=== PATIENT | female | born 1970 | race Caucasian/White ===

== ENCOUNTER → 2018-12-02 08:01 | Outpatient (CLI) | payer OTHER, SELFPAY ==
--- NOTE | 2018-12-02 08:03 | BI_ITS ---
MAMMOGRAPHY - BILATERAL SCREENING REASON FOR EXAM: Female, 48 years old. Routine annual screening examination. PERTINENT HISTORY: Grandmother with breast cancer. TECHNIQUE: Digital bilateral breast edenilson (3D mammographic acquisition) in the CC and MLO projections. 2-D mediolateral oblique (MLO) and craniocaudad (CC) views of both breasts were obtained. CAD: Full Field Digital Mammography with Computer Added Detection was performed. COMPARISON: Comparison is made with prior study dated October 28, 2017 and July 28, 2012. FINDINGS: Breast Composition: The breasts are extremely dense, which lowers the sensitivity of mammography. There are no dominant masses or suspicious calcifications. Stable bilateral axillary lymph nodes. No other significant abnormalities are identified. There has been no significant change since the prior study. BI/SCREENING MAMM (CAD), BILAT IMPRESSION: Stable bilateral screening mammogram. Yearly follow-up mammogram recommended. (A) ASSESSMENT CATEGORY: BIRADS Category 2: Benign. A letter regarding these results will be sent to the patient by the facility within 30 days. Approximately 10% of breast cancers are not detected by mammography. A normal mammogram should not delay biopsy of a clinically suspicious abnormality. [id number] Electronically Signed: Nuno Dominguze MD at 9:05 EST Tel [phone], Service support ,
== END ==
PROVIDERS: Family Provider Internal Medicine; PCP Internal Medicine; Referring Provider Obstetrics & Gynecology; Visit Provider Obstetrics & Gynecology
DX: Z12.31 Encounter for screening mammogram for malignant neoplasm of breast (principal); Z80.3 Family history of malignant neoplasm of breast
CPT/HCPCS: 77063; 77067

== ENCOUNTER 2019-03-02 06:11 | Day surgery (SDC) | payer OTHER, SELFPAY ==
[2019-03-02 06:40] LABS: Internal QC Validated? YES +Cl - CLEAR BKGD; Pregnancy, Urine Negative Negative
[2019-03-02 06:47] VITALS: BP 106/57; PULSE 74; RESP 16; TEMP 37.8; O2SAT 99; BMI 24.8
--- NOTE | 2019-03-02 07:11 | PCM.PN.BLA ---
Progress Note ADDENDUM: Pt refusing to sign consent. Concerned re bilateral salpingectomy. Advised again, as discussed in the office at the time of her last visit: the fallopian tubes only purpose is to establish . She is not planning . Benefit of removing fallopian tubes: may decrease risk of ovarian cancer. After discussion of options, she elects to proceed with bilateral salpingectomy. The R ovary is the one with the enlarging cystic structure. R oophorectomy also planned. Rereviewed potential for larger incision prn if unable to remove the R ovary with L/S incisions. Explained procedure. Consents signed and witnessed. Proceed with laparoscopic bilateral salpingectomy with R oophorectomy.
--- NOTE | 2019-03-02 07:15 | PCM.DC ---
- Discharge Diagnoses Current Active Problems: right ovarian cyst Status post laparoscopy, bilateral salpingectomy and Right oophorectomy You will use the following diet at home:: No restrictions Discharge Activity: May not drive while taking narcotic pain medications., May Shower, May Take a Tub Bath Return to work on:: 03/05/19 May resume sexual activity in: 1 week Lifting Restrictions: limit to 20# or less for two weeks to allow healing Call your doctor if you observe: Fever of 101 or Higher, Using more than one pad per hour, Calf discomfort, Uncontrolled pain Change Dressing in (Days):: 7 Remove Dressing in (days):: 7 Cleanse incision/area with: Soap & Water, Keep Dressing Clean & Dry Additional Instructions: 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 Take Tylenol 500 - 1000 mg by mouth every 8 hr as needed. You may take EITHER two Aleve or three Ibuprofen by mouth every 8 hrs. Add OxyIR for more severe pain as needed. Allergies/Adverse Reactions: Allergies No Known Allergies Allergy (Verified 02/23/19 11:01) Medications to take at Discharge Apremilast [Otezla] 30 mg PO DAILY 02/23/19 Biotin 1 mg PO DAILY 02/23/19 Calcium Carbonate [Calcium] 600 mg PO DAILY 02/23/19 Dexlansoprazole [Dexilant] 30 mg PO DAILY 02/23/19 Lactobacillus Acidophilus [Acidophilus Probiotic] 0.5 mg PO DAILY 02/23/19 Magnesium 200 mg PO DAILY 02/23/19 Simvastatin [Zocor] 10 mg PO DAILY 02/23/19 Oxycodone [Oxyir] 5 mg PO Q6H PRN PRN 3 Days #10 tablet 03/02/19 The following prescriptions were given: Oxycodone [Oxyir] 5 mg PO Q6H PRN PRN 3 Days #10 tablet PRN Reason: Mod-Severe Pain (4-10/10) Primary Care Physician: Sisi Pappas MD [Primary Care Provider] - Test Results: Test results from this visit will be discussed in further detail at your follow-up appointment, if applicable. Please Follow Up With: Liz Velez MD - [phone] When: in 2 wk for postop check up as scheduled Proposed Discharge Date: 03/02/19
--- NOTE | 2019-03-02 07:20 | DCINST_ITS ---
- Discharge Diagnoses Current Active Problems: right ovarian cyst Status post laparoscopy, bilateral salpingectomy and Right oophorectomy You will use the following diet at home:: No restrictions Discharge Activity: May not drive while taking narcotic pain medications., May Shower, May Take a Tub Bath Return to work on:: 03/05/19 May resume sexual activity in: 1 week Lifting Restrictions: limit to 20# or less for two weeks to allow healing Call your doctor if you observe: Fever of 101 or Higher, Using more than one pad per hour, Calf discomfort, Uncontrolled pain Change Dressing in (Days):: 7 Remove Dressing in (days):: 7 Cleanse incision/area with: Soap & Water, Keep Dressing Clean & Dry Additional Instructions: 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 Take Tylenol 500 - 1000 mg by mouth every 8 hr as needed. You may take EITHER two Aleve or three Ibuprofen by mouth every 8 hrs. Add OxyIR for more severe pain as needed. Allergies/Adverse Reactions: Allergies No Known Allergies Allergy (Verified 02/23/19 11:01) Medications to take at Discharge Apremilast [Otezla] 30 mg PO DAILY 02/23/19 Biotin 1 mg PO DAILY 02/23/19 Calcium Carbonate [Calcium] 600 mg PO DAILY 02/23/19 Dexlansoprazole [Dexilant] 30 mg PO DAILY 02/23/19 Lactobacillus Acidophilus [Acidophilus Probiotic] 0.5 mg PO DAILY 02/23/19 Magnesium 200 mg PO DAILY 02/23/19 Simvastatin [Zocor] 10 mg PO DAILY 02/23/19 Oxycodone [Oxyir] 5 mg PO Q6H PRN PRN 3 Days #10 tablet 03/02/19 The following prescriptions were given: Oxycodone [Oxyir] 5 mg PO Q6H PRN PRN 3 Days #10 tablet PRN Reason: Mod-Severe Pain (4-10/10) Primary Care Physician: Sisi Pappas MD [Primary Care Provider] - Test Results: Test results from this visit will be discussed in further detail at your follow- up appointment, if applicable. Please Follow Up With: Liz Velez MD - [phone] When: in 2 wk for postop check up as scheduled Proposed Discharge Date: 03/02/19
[2019-03-02] MEDS: Bupiv/Epi 0.5% Mpf 30 ML Vial (08:01)
[2019-03-02 08:14] VITALS: BP 106/57; BP 95/77; PULSE 75; RESP 16; TEMP 36.8; O2SAT 96
[2019-03-02 08:30] VITALS: BP 103/65; BP 106/57; PULSE 67; RESP 16; O2SAT 97
[2019-03-02 08:38] VITALS: BP 106/57; BP 87/66; PULSE 67; RESP 16; TEMP 36.7; O2SAT 96
[2019-03-02 09:34] VITALS: BP 106/57; BP 111/68; PULSE 74; RESP 16; TEMP 37.7; O2SAT 100
--- NOTE | 2019-03-03 19:32 | OP.PCM_ITS ---
Report of Operation Date of Procedure: 03/02/19 Pre-Operative Diagnosis: Right ovarian cysts Post-Operative Diagnosis: Same, Endometriosis, Pelvic adhesions Description of Surgical Findings:: Findings: Normal appearing uterus. Endometriosis was noted at left fallopian tube and ovary. The left ovary was adherent to the left posterior pelvis, and with manipulation a small chocolate cyst was noted. The Right ovary and fallopian tube were densely adherent to the pelvic side wall, and a loop of bowel densely adherent to the ovary. Minimal adhesions were noted at the LLQ between the bowel and abdominal side wall. The appendix was visualized and WNL. modeling agency manager: Misti Bruce Type of Anesthesia:: General Specimen's removed: none Drains: Red Stiles Estimated Blood Loss (mL): 20 Fluids Replaced: LR Description of Procedure: Narrative account: After the risks, benefits, alternatives of procedure had been reviewed with the patient, informed consent was obtained. The patient was taken back to the Operating room with an IV running. She was positioned on the operating table in dorsal supine position, where she was given general anesthesia. Once asleep she was repositioned to the dorsal lithotomy position and prepped and draped in the usual sterile fashion. A red Stiles catheter was used to drain the bladder prior to initiating the case. A sponge stick was placed into the vagina to allow manipulation of the uterus and cervix during the case. Attention was then turned to the anterior abdominal wall where 0.5 % Marcaine with epinephrine was instilled at the suprapubic and infraumbilical skin and at a point midway between in the midline. Skin incisions were then created in the midline at the suprapubic skin and at the infraumbilical skin and midway between the two. While maintaining upward traction of the anterior abdominal wall a Veress needle was inserted through the umbilical incision into the peritoneal cavity. There was free drop of saline, low opening pressure and free flow of CO2 noted. Once the intraabdominal pressure had reached 12 mm of mercury the Veress needle was removed and a bladeless 5 mm trocar was placed through infraumbilical skin incision into the peritoneal cavity. Correct placement was confirmed using the scope. Under direct visualization then with the patient in Trendelenburg position, a bladeless 5 mm trocar was inserted in through suprapubic skin incision into the peritoneal cavity and at a point midway between the infraumbilical and suprapubic trocars. The uterus as anteverted and both ovaries and fallopian tubes were WNL. The pelvis was inspected with the findings noted above. The left fallopian tube was mobile but the left ovary adherent to the pelvic side wall with a small chocolate cyst noted. The R ovary and fallopian tube were densely adherent to the right pelvic side wall. A loop of bowel was also densely adherent to the ovary. Given this dense adhesion and likelihood of damage to the bowel I broke scrub to discuss the findings with Consuelo's . My recommendation was to terminate the procedure at just the diagnostic laparoscopy as to dissect the dense adhesion risked bowel injury and likely an open procedure to address such a complication. Consuelo has no history of pelvic pain with the cysts/adhesions, and is nearing menopause when the natural history of endometriosis is resolution. After this discussion, I returned to the operating room. At this point -- diagnostic laparoscopy only -- the procedure was terminated. The pneumoperitoneum was reduced and the instruments and trocars were removed from he the anterior abdominal wall skin. The skin incisions were closed with 4-0 Monocryl in a subcuticular fashion. Dermabond and OpSites were applied to the skin. The sponge stick was removed from the vagina. The patient was returned to dorsal supine position. She was awakened from general anesthesia. She was transferred to the recovery room bed in stable condition after tolerating the procedure well. Sponge, lap, needle and instrument counts were correct x two. Medications given preop and intraoperatively included: 10 cc of 1/2 % Marcaine with epinephrine --used as a subcutaneous block and Toradol 30 mg IV x one. For a complete listing of medications given preop and intraop , please see the anesthesia record. - Complications None - Admit VTE Documentation VTE Present on Admission: No VTE Mechan Device Prophylaxis: SCD's
== END 2019-03-02 09:34 | disposition home or self-care (01) ==
LOC: SDC 06:12 → AC 06:13
PROVIDERS: Family Provider Internal Medicine; PCP Internal Medicine; Referring Provider Obstetrics & Gynecology; Visit Provider Obstetrics & Gynecology
PROC: (CPT 58661; principal; 2019-03-02 07:15)
DX: N80.1 Endometriosis of ovary (principal); N80.2 Endometriosis of fallopian tube; N73.6 Female pelvic peritoneal adhesions (postinfective); Z53.8 Procedure and treatment not carried out for other reasons; K21.9 Gastro-esophageal reflux disease without esophagitis; I49.9 Cardiac arrhythmia, unspecified; L40.50 Arthropathic psoriasis, unspecified; Z87.891 Personal history of nicotine dependence
CPT/HCPCS: 00790; 49320; 81025; J7120; J2405

== ENCOUNTER → 2019-10-12 10:16 | Outpatient (CLI) | payer OTHER, SELFPAY ==
[2019-10-16 16:07] LABS: Age Gdln ACOG Testing 30-65 (.)
[2019-10-17 12:31] LABS: HPV APTIMA, High Risk Negative (Negative)
[2019-10-17 12:44] LABS: HPV Reflexed? YES, CHARGE PATIENT
== END ==
PROVIDERS: Family Provider Internal Medicine; PCP Internal Medicine; Visit Provider Obstetrics & Gynecology
DX: Z12.4 Encounter for screening for malignant neoplasm of cervix (principal)
CPT/HCPCS: 87624; 88175; G0145

== ENCOUNTER → 2019-12-07 07:56 | Outpatient (CLI) | payer OTHER, SELFPAY ==
--- NOTE | 2019-12-07 07:58 | BI_ITS ---
MAMMOGRAPHY - BILATERAL SCREENING REASON FOR EXAM: Female, 49 years old. Routine annual screening examination. PERTINENT HISTORY: Grandmother with breast cancer. TECHNIQUE: Digital bilateral breast hamlet (3D mammographic acquisition) in the CC and MLO projections. 2-D mediolateral oblique (MLO) and craniocaudad (CC) views of both breasts were obtained. CAD: Full Field Digital Mammography with Computer Added Detection was performed. COMPARISON: Comparison is made with prior study dated June 01, 2019 and October 28, 2017. FINDINGS: Breast Composition: The breasts are extremely dense, which lowers the sensitivity of mammography. There are no dominant masses or suspicious calcifications. Stable benign-appearing bilateral axillary lymph nodes. No other significant abnormalities are identified. There has been no significant change since the prior study. BI/SCREEN MAMM (CAD) W/HAMLET BILAT IMPRESSION: Stable bilateral screening mammogram. Yearly follow-up mammogram recommended. (A) ASSESSMENT CATEGORY: BIRADS Category 2: Benign. A letter regarding these results will be sent to the patient by the facility within 30 days. Approximately 10% of breast cancers are not detected by mammography. A normal mammogram should not delay biopsy of a clinically suspicious abnormality. [id number] Electronically Signed: Nuno Dominguez, at 8:53 EST , Service support ,
== END ==
PROVIDERS: Family Provider Internal Medicine; PCP Internal Medicine; Referring Provider Obstetrics & Gynecology; Visit Provider Obstetrics & Gynecology
DX: Z12.31 Encounter for screening mammogram for malignant neoplasm of breast (principal)
CPT/HCPCS: 77063; 77067

== ENCOUNTER 2020-10-23 11:31 | Day surgery (SDC) | payer OTHER, SELFPAY ==
--- NOTE | 2020-10-22 17:36 | HP.PCM_ITS ---
History and Physical Date of Admission: 10/23/20 HPI 50 year old female 1 0 0 0 1, presents for D hysteroscopy, ablation on October 23, 2020 at 1:00. Menses 07/27 bleeding daily, some days heavier than others, but not ever changing a large maxi pad every other. Vaginal soreness noted w/this recent daily use of tampons. 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 Period in Dec and Nov. None in Sep or October. Reports some cramping in June, but none with most recent bleed. Not using anything for control, other than withdrawal, which she has done for many years. . One child. Former smoker. She is fearful of having a stroke with use of an ocp adding when she did use one prior, she had gained weight. EMB showed benign polyp. MEDICATIONS HISTORY: Patient is also takin. Calcium 600 600 mg (1,500 mg) Tablet 2. magnesium 200 mg Tablet 3. Otezla 30 mg tablet 4. Dexilant 30 mg capsule, delayed release, 1 daily 5. 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 Psoriasis, hypercholesterolemia, GERD SOCIAL HISTORY: Alcohol Use - socially Smoking - used to smoke but quit Drug - denies FAMILY HISTORY: Family history of Greast Grandmother -br CA and hyperlipidemia. Mother: Osteoporosis. Father: Heart Disease. Paternal Aunt: Brain cancer and Lung cancer. MENSTRUAL HISTORY: LMP Known?- DefiniteAmount/Duration - 26 days, Regularity - Irregular, Frequency - variable days, LMP - 10/08/20, Age Onset Menarche - 14 PAST PREGNANCIES: Total Pregnancies - 1; Full Term Pregnancies - 1; Premature - 0; Abortions, Induced - 0; Abortions, Spontaneous - 0; Ectopics - 0; Multiple Births - 0; Living Children - 1 SURGICAL HISTORY: 1. bunionectomy at age 15, R foot ; - 2. 1992 ; - 3. 1996 LEEP ; - Focal adenoca CIS (HGSIL pap, ASCUS ECC) 4. colonoscopy November wnl ; - 5. endoscopy 10/30 ; - 6. 03/02/2019 dx laparoscopy ; Dr Paul Marrero - 7. 03/02/2019 Diagnostic laparoscopy. ; Liz Veelz M.D. - R ovarian cyst, ? endometrioma Review of Systems: GENERAL - Denies fever, or chills SKIN - Denies skin changes EYES - Denies visual changes EARS - Denies difficulty hearing NOSE - Denies nasal congestion or bleeding MOUTH - Denies sore throat or difficulty swallowing NECK - Denies pain or swelling RESPIRATORY - Denies shortness of breath or wheezing CARDIOVASCULAR - Denies palpitations or chest pain GASTROINTESTINAL - Denies nausea, vomiting, diarrhea, constipation GENITOURINARY - Denies dysuria, frequency of urination, incontinence of urine MUSCULOSKELETAL - Denies joint or muscle pain NEUROLOGICAL - Denies localized numbness or weakness PSYCHIATRIC - Denies depression or anxiety ENDOCRINE - Denies heat or cold intolerance, weight loss or gain HEMATO-IMMUNOLOGIC - Denies excesive bleeding with cuts PHYSICAL EXAM BP- 134/78 Sitting, Right arm, regular cuff Temp- 98.1 Taken Orally Weight- 155.10922 lbs Height- 64 inch BMI:26.80 CONSTITUTIONAL - NAD, well nourished, and well developed SKIN - No rash, lesions, or ulcers HEENT - Normocephalic, PERRLA, EOMI NECK - No nodes, no nuchal rigidity and thyroid normal size and texture LYMPH NODES - Palpation of lymph nodes in neck and groins within normal limits LUNGS - CTA x2 without wheezes, crackles or rales CARDIAC - Regular rate and rhythm without rubs, murmurs, or gallops ABDOMEN - Without hepatosplenomegaly, distention, masses, rebound, or guarding; normal bowel sounds; no hernias EXTREMITIES - No edema or calf tenderness NEUROLOGICAL - Cranial nerves II-XII grossly intact PSYCHIATRIC - A and O to time, place, person, mood and affect ASSESSMENT/PLAN: 1. Excessive And Frequent Menstruation With Irregular Cycle Heavy menses with prolonged in July x3w. and With history of many years of heavy irregular bleeding. Pt had been scheduled for hysterectomy and adhesions limited surgical management and this was not completed. Last EMB was in 2016 wnl. US today showed normal size uterus, endometrial stripe 17.89 mm, however pt is not post menopausal. EMB showed polyp Plan for hysteroscopy dilation and curettage. Patient is now declining ablation. DIscussed R/B/A with pt. Risks include, but are not limited to: risk of bleeding to the point of transfusion, infection, injury to surrounding tissue (bowel/bladder,), uterine perforation, VTE, ICU admission. 2. 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 Reviewed records. Patient had LEEP procedure in 1996 which showed CINIII and focal adenocarcinoma in situ on conization specimen. Discussed at length with patient. Discussed unlikely to have underlying disease at this time as this dx was 23 years ago, however I would recommend doing LEEP procedure at time of D&C in order to ensure no lesions are present at this time. Spoke with dr. Muro (environment friendly landscape designer oncology who had seen the patient in consultation) - discussed doing LEEP at time of D due to remote history. She agreed with plan. Patient is unsure if she wants to do this or not. Will notify day of surgery - patient declines LEEP procedure at this time, understands risks.
[2020-10-23] VITALS (7 sets, daily range): BP systolic 103–132; BP diastolic 69–79; PULSE 70–81; RESP 16; TEMP 36.4–37.3; O2SAT 94–100; BMI 26.4
[2020-10-23 11:57] LABS: Internal QC Validated? YES +Cl - CLEAR BKGD; Pregnancy, Urine Negative Negative
[2020-10-23 12:05] LABS: Hematocrit 37.6 % (37-47); Hemoglobin 11.2 g/dL (12.0-15.0); Mean Corp Hgb Conc 29.8 g/dL (32-36); Mean Corpuscular Volume 83.9 fL (81-99); Mean Platelet Vol. 9.8 fl (6.2-12.0); Platelet Count 349 K/mm3 (150-450); RBC Distribution Width CV 13.8 % (11.6-14.6); RBC Distribution Width SD 42.4 fl (35.1-43.9); Red Blood Count 4.48 M/mm3 (4.2-5.4); White Blood Count 4.2 K/mm3 (4.4-11.0)
[2020-10-23] MEDS: Lactated Ringers 1,000 ML 100 ML IV (12:28)
--- NOTE | 2020-10-23 12:53 | PCM.OPRPT ---
Report of Operation Date of Procedure: 10/23/20 Pre-Operative Diagnosis: Menorrhagia Post-Operative Diagnosis: Menorrhagia Surgery/Procedure Performed:: Hysteroscopy, dilation and curettage Description of Surgical Findings:: Normal external genitalia. Scarred shortened cervix after LEEP. Minimal uterine descensus. Stenotic cervix. Thin endometrium without polyps noted. Type of Anesthesia:: Local, MAC Specimen's removed: Endometrial curettings Estimated Blood Loss (mL): 5cc Fluids Replaced: 800cc Description of Procedure: Patient was taken to the operating room, MAC anesthesia initiated. Patient placed in the dorsal lithotomy position and prepped and draped in the usual sterile fashion. Bladder drained 50 cc urine. Weighted speculum placed in the posterior vagina and Brenner retractor used to visualize the cervix which was grasped with a single-tooth tenaculum anteriorly. Cervix sequentially dilated. Hysteroscope placed through the cervical canal and visualization of the entire endometrial cavity was completed. No polyp visualized, thin endometrium noted. Bilateral tubal ostia noted. Endometrial curettings completed a 360 degree manner. Hysteroscope replaced through the cervical canal noting thin endometrium. Single-tooth tenaculum removed, hemostatic with pressure. Weighted speculum removed. At the end of the procedure all needle, lap, sponge counts were correct x3.
--- NOTE | 2020-10-23 12:54 | PCM.DC.D&C ---
Discharge Activity: Return to Normal Activity, May Shower May resume sexual activity in: 4 weeks Weight Bearing Status: Weight bearing as tolerated Call your doctor if you observe: Fever of 101 or Higher, Inability to urinate, Inability to have a bowel movement, Using more than one pad per hour Cleanse incision/area with: Soap & Water Allergies/Adverse Reactions: Allergies No Known Allergies Allergy (Verified 10/23/20 11:58) Medications to take at Discharge Apremilast [Otezla] 30 mg PO SUTUTHSA 02/23/19 Biotin 1 mg PO DAILY 02/23/19 Calcium Carbonate [Calcium] 600 mg PO DAILY 02/23/19 Dexlansoprazole [Dexilant] 60 mg PO DAILY 02/23/19 Lactobacillus Acidophilus [Acidophilus Probiotic] 0.5 mg PO DAILY 02/23/19 Magnesium 200 mg PO DAILY 02/23/19 Simvastatin [Zocor] 20 mg PO DAILY 02/23/19 Apremilast [Otezla] 60 mg PO MOWEFR 10/14/20 Orders to be completed after discharge: Type & Screen - PAT ONLY Time Frame: 10/23/20, Facility: [facility], Location: Laboratory Primary Care Physician: Sisi Pappas MD [Primary Care Provider] - Test Results: Test results from this visit will be discussed in further detail at your follow-up appointment, if applicable. Please Follow Up With: Sonia Solis DO When: 2 weeks
--- NOTE | 2020-10-23 13:00 | EMB_PTH ---
PATIENT: VIVIANE CARTER LOC: [facility] [place] U#:[id number] AGE/SX: 50/F ROOM: RE10/23/[address]: Dr. Sonia Solis DO : 1970 BED: DIS: 10/23/2020 SPEC #: [id number] RECD: 10/23/20 13:57 STATUS: FRACISCO RESegundo #: [id number] GEOVANNA: 10/23/20 13:[address]: Sonia Solis DEPT: SURGICAL PATHOLOGY RECD BY: Marlen Wall ENTERED: 10/24/20 07:42 SP TYPE: ENDOM BX/C EDDA DR: Dr. Sisi Pappas MD Tissues: Endometrium, NOS Procedures: Surgery Specimen Level IV HEADER OPERATION: Hysteroscopy, dilation and curettage PRE-OP DIAGNOSIS: Excessive and frequent menses TISSUE SUBMITTED: Endometrial curettings MICROSCOPIC DIAGNOSIS Endometrium, curettings: Weakly proliferative endometrium with minimal disorder with focal glandular and stromal breakdown. AM:rocio 10/27/20 MICROSCOPIC DESCRIPTION Slides are reviewed. GROSS DESCRIPTION Received in fixative is one container labeled with the patient's name and designated endometrial curettings. The specimen consists of multiple fragments of garduno hemorrhagic soft tissue that in aggregate measure 2.5 x 1.5 x 0.1 cm. The specimen is totally submitted in one cassette. / SJ:rocio 10/24/20 TC:5 CPT: 31398
== END 2020-10-23 14:46 | disposition home or self-care (01) ==
LOC: SDC 11:33 → AC 11:34
PROVIDERS: Anesthesiology; PCP Internal Medicine; Referring Provider Student in an Organized Health Care Education/Training Program; Visit Provider Student in an Organized Health Care Education/Training Program
PROC: 0UDB8ZZ Extraction of Endometrium, Via Natural or Artificial Opening Endoscopic (ICD-10-PCS; CPT 58558; principal; 2020-10-23 12:45)
DX: N92.0 Excessive and frequent menstruation with regular cycle (principal); N81.4 Uterovaginal prolapse, unspecified; N88.2 Stricture and stenosis of cervix uteri; K21.9 Gastro-esophageal reflux disease without esophagitis; E78.00 Pure hypercholesterolemia, unspecified; K58.9 Irritable bowel syndrome, unspecified; L40.50 Arthropathic psoriasis, unspecified; Z20.828 Contact with and (suspected) exposure to other viral communicable diseases; Z87.891 Personal history of nicotine dependence; Z79.899 Other long term (current) drug therapy; Z86.001 Personal history of in-situ neoplasm of cervix uteri
CPT/HCPCS: 00952; 58558; 81025; 85027; 86850; 86900; 86901; 87426; 88305; C9803; J7120; J2405

== ENCOUNTER → 2020-12-29 15:30 | Outpatient (CLI) | payer OTHER, SELFPAY ==
[2020-10-23 12:01] VITALS: BMI 26.4
--- NOTE | 2020-12-29 15:37 | BI_ITS ---
MAMMOGRAPHY - BILATERAL SCREENING REASON FOR EXAM: Female, 50 years old. Routine annual screening examination. PERTINENT HISTORY: Grandmother with breast cancer. TECHNIQUE: Digital bilateral breast hamlet (3D mammographic acquisition) in the CC and MLO projections. 2-D mediolateral oblique (MLO) and craniocaudad (CC) views of both breasts were obtained. CAD: Full Field Digital Mammography with Computer Added Detection was performed. COMPARISON: Comparison is made with prior study dated 12/07/2019 and 12/02/2018. FINDINGS: Breast Composition: The breasts are extremely dense, which lowers the sensitivity of mammography. There are no dominant masses or suspicious calcifications. Stable benign-appearing bilateral axillary lymph nodes. No other significant abnormalities are identified. There has been no significant change since the prior study. BI/SCRN MAMM (CAD)W/HAMLET BILAT IMPRESSION: Stable bilateral screening mammogram. Yearly follow-up mammogram recommended. (A) ASSESSMENT CATEGORY: BIRADS Category 2: Benign. A letter regarding these results will be sent to the patient by the facility within 30 days. Approximately 10% of breast cancers are not detected by mammography. A normal mammogram should not delay biopsy of a clinically suspicious abnormality. [id number] Electronically Signed: Nuno Dominguez MD at 8:28 EST , Service support ,
== END ==
PROVIDERS: PCP Internal Medicine; Referring Provider Student in an Organized Health Care Education/Training Program; Visit Provider Student in an Organized Health Care Education/Training Program
DX: Z12.31 Encounter for screening mammogram for malignant neoplasm of breast (principal)
CPT/HCPCS: 77063; 77067

== ENCOUNTER 2021-12-31 15:46 | Outpatient (CLI) | payer OTHER, SELFPAY ==
--- NOTE | 2021-12-31 15:49 | BI_ITS ---
MAMMOGRAPHY - BILATERAL SCREENING REASON FOR EXAM: Female, 51 years old. Routine annual screening examination. PERTINENT HISTORY: Grandmother with breast cancer. TECHNIQUE: Digital bilateral breast hamlet (3D mammographic acquisition) in the CC and MLO projections. 2-D mediolateral oblique (MLO) and craniocaudad (CC) views of both breasts were obtained. CAD: Full Field Digital Mammography with Computer Added Detection was performed. COMPARISON: Comparison is made with prior study dated 12/29/2020 and 12/07/2019. FINDINGS: Breast Composition: The breasts are extremely dense, which lowers the sensitivity of mammography. There are no dominant masses or suspicious calcifications. Stable benign-appearing bilateral axillary lymph nodes. No other significant abnormalities are identified. There has been no significant change since the prior study. BI/SCRN MAMM (CAD)W/HAMLET BILAT IMPRESSION: Stable bilateral screening mammogram. Yearly follow-up mammogram recommended. (A) ASSESSMENT CATEGORY: BIRADS Category 2: Benign. A letter regarding these results will be sent to the patient by the facility within 30 days. Approximately 10% of breast cancers are not detected by mammography. A normal mammogram should not delay biopsy of a clinically suspicious abnormality. [id number] Electronically Signed: Nuno Dominguez MD at 9:07 EST ,
== END 2021-12-31 23:59 | disposition home or self-care (01) ==
LOC: OPBI 15:47
PROVIDERS: PCP Internal Medicine; Referring Provider Student in an Organized Health Care Education/Training Program; Visit Provider Student in an Organized Health Care Education/Training Program
DX: Z12.31 Encounter for screening mammogram for malignant neoplasm of breast (principal)
CPT/HCPCS: 77063; 77067

== ENCOUNTER 2022-01-07 11:38 | Outpatient (CLI) | payer OTHER, SELFPAY ==
[2022-01-07 15:15] LABS: Absolute Lymphocyte Count 1.72 X10^3/uL (0.83-4.51); Absolute Neutrophil Count 2.6 X10^3/uL (2.0-7.7); Basophil# 0.04 X10^3/uL; Basophil% 0.8 % (0-1); Eosinophil# 0.06 X10^3/uL; Eosinophils% 1.2 % (0-5); Hematocrit 40.2 % (37-47); Hemoglobin 12.5 g/dL (12.0-15.0); Lymphocyte # 1.72 X10^3/ul (0.83-4.51); Lymphocyte % 34.9 % (19-41); Mean Corp Hgb Conc 31.1 g/dL (32-36); Mean Corpuscular Hgb 27.7 pg (27.0-32.0); Mean Corpuscular Volume 88.9 fL (81-99); Mean Platelet Vol. 10.3 fl (6.2-12.0); Monocyte# 0.52 X10^3/uL; Monocyte% 10.5 % (0-10); NRBC Flagged by Analyzer 0 % (0-5); Neutrophil # 2.58 X10^3/uL (2.7-7.7); Neutrophil % 52.4 % (47-70); Platelet Count 321 K/mm3 (150-450); RBC Distribution Width SD 45.3 fl (35.1-43.9); Red Blood Count 4.52 M/mm3 (4.2-5.4); White Blood Count 4.9 K/mm3 (4.4-11.0)
[2022-01-07 15:48] LABS: ALB/GLOB Ratio 1.1 RATIO (0.9-2.4); AST(SGOT) 24 U/L (15-37); Alanine Aminotransfer ALT/SGPT 27 U/L (13-56); Alkaline Phosphatase 81 U/L (45-117); Anion Gap 6 (5-15); BUN 11 mg/dL (7-18); BUN/Creat Ratio 15.5 RATIO (10-20); Calcium,Total 8.7 mg/dL (8.5-10.1); Chloride 105 mmol/L (98-107); Cholesterol 214 mg/dL (200); Creatinine, Serum 0.71 mg/dL (0.55-1.02); EST Glomerular Filtration Rate 92 mL/min (>60); Est Glom Filt Rate - Afr Amer 112 mL/min (>60); Globulin 3.7 g/dL (2.2-4.2); Glucose 86 mg/dL (74-106); High Density Lipoprotein 54 mg/dL; Protein, Total 7.7 g/dL (6.4-8.2); Sodium Level 137 mmol/L (136-145); Thyroid Stim Hormone (TSH) 2.01 uIU/mL (0.358-3.74); Triglycerides 137 mg/dL; Very Low Density Lipoprotein 27 mg/dL (5-40)
== END 2022-01-07 23:59 | disposition home or self-care (01) ==
LOC: MFPLAB 11:42
PROVIDERS: PCP Family Medicine; Referring Provider Family Medicine; Visit Provider Family Medicine
DX: E78.5 Hyperlipidemia, unspecified (principal)
CPT/HCPCS: 36415; 80053; 80061; 84443; 85025

== ENCOUNTER 2022-01-19 16:38 | Outpatient (CLI) | payer OTHER, SELFPAY ==
[2022-01-25 12:10] LABS: HPV APTIMA, High Risk Negative (Negative)
== END 2022-01-19 23:59 | disposition home or self-care (01) ==
LOC: LABSPEC 16:39
PROVIDERS: PCP Family Medicine; Visit Provider Student in an Organized Health Care Education/Training Program
DX: Z12.4 Encounter for screening for malignant neoplasm of cervix (principal)
CPT/HCPCS: 87624; 88175; G0145

== ENCOUNTER → 2022-04-30 | Outpatient (CLI) | payer OTHER, SELFPAY ==
[2022-04-30 10:35] LABS: Cholesterol 260 mg/dL (200); High Density Lipoprotein 53 mg/dL; Triglycerides 147 mg/dL; Very Low Density Lipoprotein 29 mg/dL (5-40)
== END | disposition home or self-care (01) ==
LOC: MTLAB 07:33
PROVIDERS: PCP Family Medicine; Referring Provider Family Medicine; Visit Provider Family Medicine
DX: E78.5 Hyperlipidemia, unspecified (principal)
CPT/HCPCS: 36415; 80061

== ENCOUNTER 2022-09-17 07:05 | Day surgery (SDC) | payer OTHER, SELFPAY ==
[2022-09-17] VITALS (9 sets, daily range): BP systolic 91–145; BP diastolic 47–76; PULSE 62–79; RESP 16–18; TEMP 36.1–37.1; O2SAT 94–100; BMI 27.3
--- NOTE | 2022-09-17 07:24 | PCM.HP.BLA ---
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 Is patient in pain?: No Allergies latex Allergy (Verified 05/03/22 13:25) Rash Medications Lactobacillus acidophilus 0.5 mg PO DAILY 02/23/19 [History Confirmed 05/03/22] apremilast [Otezla] 30 mg PO SUTUTHSA 02/23/19 [History Confirmed 05/03/22] biotin 1 mg PO DAILY 02/23/19 [History Confirmed 05/03/22] calcium carbonate 600 mg PO DAILY 02/23/19 [History Confirmed 05/03/22] dexlansoprazole [Dexilant] 60 mg PO DAILY 02/23/19 [History Confirmed 05/03/22] magnesium 200 mg PO DAILY 02/23/19 [History Confirmed 05/03/22] simvastatin 20 mg PO DAILY 02/23/19 [History Confirmed 05/03/22] apremilast 60 mg PO MOWEFR 10/14/20 [History Confirmed 05/03/22] PFSH Medical History?(Updated 05/03/22 @ 13:23 by Lamar Tuesday) delivery delivered Hemorrhoids Hx LEEP (loop electrosurgical excision procedure), cervix, Surgical History?(Updated 05/03/22 @ 13:23 by Lamar Tuesday) History of bunionectomy History of D&C Family History?(Updated 05/03/22 @ 13:24 by Lamar Tuesday) Mother Diabetes OsteoporosisFather Heart disease High cholesterol Social History?(Updated 05/03/22 @ 13:24 by Lamar Tuesday) Smoking Status:? Former smoker alcohol intake:? current details:? social substance use type:? does not use HPI HPI HPI: VIVIANE CARTER, is a 51 F who presents to the office today for surgical consultation regarding history of gastroesophageal reflux disease and need for screening colonoscopy.? The patient is referred by Dr Jesse Hu and a written copy of my surgical consult recommendations will return to him.? The patient's GERD symptoms started in the early .? She has been on Dexilant for at least 4 years.? She is also been on omeprazole and pantoprazole.? She has had previous upper endoscopies.? She has a history of psoriatic arthritis and she is on Otezla therapy. She thinks she had a colonoscopy back in the .? She not sure when she had her last upper endoscopy.? She has been on a PPI for extended period of time at least 10 years and she currently for the past 3 years has been on Dexilant.? She has had a previous extensive work-up for nausea vomiting epigastric burning.? Apparently this involved gallbladder studies as well. As of December 28, 2021 her BUN was 11 creatinine 0.71.? Liver function tests were normal.? White count 4.9 with a hemoglobin 12.5 medical 40.2 platelet count 321,000 ROS General General: Yes weight change and fatigue; No appetite, colon cancer, breast cancer or weakness HEENT HEENT: Yes eye surgery; No difficulty swallowing, eye injury, swollen glands or hoarseness Endo Endocrine: No thyroid disease, diabetes mellitus, thyroid cancer, Hair loss, heat intolerance or cold intolerance Skin Skin: No rash or changing moles Musc Musculoskeletal: Yes arthritis; No back problems, rheumatoid arthritis, gout or joint pain Cardio Cardiovascular: Yes murmur; No pacemaker, heart disease, atrial fibrillation, high blood pressure, heart attack, heart stent, palpitations, shortness of breat with exertion or chest pain Psych Psychiatric: No depression, anxiety or hearing voices Resp Respiratory: No shortness of breath, No sleep apnea, No cough, No COPD, No asthma, No emphysema and No wheezing Gastro Gastrointestinal: Yes abdominal pain, Yes nausea or vomiting, No diarrhea, Yes constipation, No blood in stool, Yes acid reflux, Yes hemorrhoids, No ulcers, No gallbladder problem and No black,tarry stools Shivam Hematologic: No blood thinners, No blood disorders, No bleeding, Yes anemia and No blood clots Neuro Neurologic: No system reviewed and no additional complaints, except as documented, No as per HPI, No abnormal gait, No abnormal hearing, No abnormal movements, No abnormal speech, No behavioral changes, No burning sensations, No confusion, No convulsions, No disequilibrium, No dizziness, No localized weakness, No frequent falls, No headache(s), No lack of coordination, No loss of vision, No memory loss, No numbness, No other visual disturbances, No radicular pain, No restless legs, No sensory deficit, No syncope, No tingling, No tremor(s), No weakness and No other Exam Const General: cooperative, comfortable and no acute distress [facility] Head: normal to inspection Neck Neck: normal visual inspection Resp Effort & Inspection: normal respiratory effort Auscultation: clear to auscultation bilaterally Cardio Rate: regular rate GI Palpation: no hepatosplenomegaly Musc Cervical Spine: normal cervical lordosis Neuro General: patient alert Extrem General: no calf tenderness Psych Appearance: grossly normal Assessment and Plan Assessment and Plan (1) Screening for intestinal cancer: ?Status:?Acute ?Plan - Dr. Delbert Pan MD: The patient has no personal or family history of colon polyps or colon cancer.? I recommend to her screening colonoscopy with possible biopsy or polypectomy as indicated.? She has had an opportunity ask and have questions answered. The patient has intractable gastroesophageal reflux disease and is medication dependent.? She thinks possibly her most recent upper endoscopy was 10 years ago.? If so I recommend to her adding a esophagogastroduodenoscopy with potential biopsy as well.? She will check her previous medical care records to determine when she would have had her most recent upper endoscopy. She has had an opportunity ask and have questions answered.? We will schedule procedure at her discretion. Copy: Dr Jesse Pan M.D., F.A.C.S I have examined the patient and the H&P has been reviewed. There are no clinical changes since date of exam. Delbert Pan M.D., F.A.C.S.
[2022-09-17] MEDS: Lactated Ringers 1,000 ML 15 ML IV (07:25)
[2022-09-17 08:05] LABS: Internal QC Validated? YES +Cl - CLEAR BKGD; Pregnancy, Urine Negative Negative
--- NOTE | 2022-09-17 08:20 | OP.COLON_ITS ---
Patient Name: Consuelo Valero Procedure Date: 09/17/2022 7:54 AM Date of : 1970 Age: 52 Procedure: Colonoscopy Indications: Screening for colorectal malignant neoplasm Providers: Delbert Pan MD Medicines: See the Anesthesia note for documentation of the administered medications Patient Profile: Last Colonoscopy: none. The patient's first colonoscopy is today. Complications: No immediate complications. Procedure: Pre-Anesthesia Assessment: - Prior to the procedure, a History and Physical was performed, and patient medications and allergies were reviewed. The patient's tolerance of previous anesthesia was also reviewed. The risks and benefits of the procedure and the sedation options and risks were discussed with the patient. All questions were answered, and informed consent was obtained. Prior Anticoagulants: The patient has taken no previous anticoagulant or antiplatelet agents. ASA Grade Assessment: I - A normal, healthy patient. After reviewing the risks and benefits, the patient was deemed in satisfactory condition to undergo the procedure. After I obtained informed consent, the scope was passed under direct vision. Throughout the procedure, the patient's blood pressure, pulse, and oxygen saturations were monitored continuously. The pediatric colonoscope was introduced through the anus and advanced to the cecum, identified by appendiceal orifice and ileocecal valve. The colonoscopy was performed without difficulty. The patient tolerated the procedure well. The quality of the bowel preparation was good. The ileocecal valve and the appendiceal orifice were photographed. Scope In: 8:02:39 AM Scope Withdrawal Time 0 hours 10 minutes 7 seconds Scope Out: 8:17:09 AM Total Procedure Duration Time 0 hours 14 minutes 30 seconds Findings: Hemorrhoids were found on perianal exam. The colon (entire examined portion) appeared normal. Impression: - Hemorrhoids found on perianal exam. - The entire examined colon is normal. - No specimens collected. Recommendation: - Discharge patient to home. - Resume previous diet. - Continue present medications. - Repeat colonoscopy in 10 years for screening purposes. Procedure Code(s): --- Professional --- 79687, Colonoscopy, flexible; diagnostic, including collection of specimen(s) by brushing or washing, when performed (separate procedure) Diagnosis Code(s): --- Professional --- Z12.11, Encounter for screening for malignant neoplasm of colon K64.9, Unspecified hemorrhoids CPT copyright 2017 [employer]. All rights reserved. The codes documented in this report are preliminary and upon traffic coordinator review may be revised to meet current compliance requirements. Delbert Pna MD 09/17/2022 8:20:08 AM This report has been signed electronically. Number of Addenda: 0 Note Initiated On: 09/17/2022 7:54 AM
--- NOTE | 2022-09-17 08:21 | OP.CCLET_ITS ---
09/17/2022 Jesse Hu [address] [place] [address] Re : Colonoscopy procedure for Consuelo Marylu Dear Dr. Hu This procedure was performed on Saturday, September 17, 2022. My impressions and recommendations are as follows: Impressions : - Hemorrhoids found on perianal exam. - The entire examined colon is normal. - No specimens collected. Recommendations : - Discharge patient to home. - Resume previous diet. - Continue present medications. - Repeat colonoscopy in 10 years for screening purposes. My findings are described in the full procedure note, which is enclosed. If I can be of further assistance, please feel free to contact me at Doctor phone number(s): Work: . Sincerely, Delbert Pan MD 09/17/2022 8:20:08 AM This report has been signed electronically.
== END 2022-09-17 09:45 | disposition home or self-care (01) ==
LOC: EN 07:09 → AC 07:09
PROVIDERS: Anesthesiology; PCP Family Medicine; Referring Provider Family Medicine; Visit Provider Surgery
PROC: 0DJD8ZZ Inspection of Lower Intestinal Tract, Via Natural or Artificial Opening Endoscopic (ICD-10-PCS; CPT 45378; principal; 2022-09-17 07:55)
DX: Z12.11 Encounter for screening for malignant neoplasm of colon (principal); K21.9 Gastro-esophageal reflux disease without esophagitis; K64.9 Unspecified hemorrhoids; E78.00 Pure hypercholesterolemia, unspecified; Z79.899 Other long term (current) drug therapy; Z87.891 Personal history of nicotine dependence
CPT/HCPCS: G0121; 81025; J7120

== ENCOUNTER → 2022-10-12 | Outpatient (CLI) | payer OTHER, SELFPAY ==
[2022-10-12 17:53] LABS: Absolute Lymphocyte Count 2.02 X10^3/uL (0.83-4.51); Absolute Neutrophil Count 4.1 X10^3/uL (2.0-7.7); Basophil# 0.05 X10^3/uL; Basophil% 0.7 % (0-1); Eosinophil# 0.12 X10^3/uL; Eosinophils% 1.7 % (0-5); Hematocrit 41.9 % (37-47); Hemoglobin 13.8 g/dL (12.0-15.0); Lymphocyte # 2.02 X10^3/ul (0.83-4.51); Lymphocyte % 29.4 % (19-41); Mean Corp Hgb Conc 32.9 g/dL (32-36); Mean Corpuscular Hgb 29.6 pg (27.0-32.0); Mean Corpuscular Volume 89.9 fL (81-99); Mean Platelet Vol. 10.1 fl (6.2-12.0); Monocyte# 0.61 X10^3/uL; Monocyte% 8.9 % (0-10); NRBC Flagged by Analyzer 0 % (0-5); Neutrophil # 4.05 X10^3/uL (2.7-7.7); Platelet Count 355 K/mm3 (150-450); RBC Distribution Width CV 13.5 % (11.6-14.6); RBC Distribution Width SD 44.5 fl (35.1-43.9); Red Blood Count 4.66 M/mm3 (4.2-5.4); White Blood Count 6.9 K/mm3 (4.4-11.0)
[2022-10-12 18:34] LABS: ALB/GLOB Ratio 1.1 RATIO (0.9-2.4); AST(SGOT) 23 U/L (15-37); Alanine Aminotransfer ALT/SGPT 34 U/L (13-56); Albumin, Serum 3.8 g/dL (3.2-5.0); Alkaline Phosphatase 86 U/L (45-117); Anion Gap 6 (5-15); BUN 14 mg/dL (7-18); BUN/Creat Ratio 20.1 RATIO (10-20); Calcium,Total 8.9 mg/dL (8.5-10.1); Chloride 107 mmol/L (98-107); Cholesterol 182 mg/dL (200); EST Glomerular Filtration Rate 94 mL/min (>60); Est Glom Filt Rate - Afr Amer 114 mL/min (>60); Globulin 3.5 g/dL (2.2-4.2); Glucose 112 mg/dL (74-106); High Density Lipoprotein 44 mg/dL; Potassium 4.4 mmol/L (3.5-5.1); Protein, Total 7.3 g/dL (6.4-8.2); Sodium Level 140 mmol/L (136-145); Triglycerides 391 mg/dL; Very Low Density Lipoprotein 78 mg/dL (5-40)
[2022-10-13 12:54] LABS: Hemoglobin A1c 5.5 % (3.8-5.6)
== END | disposition home or self-care (01) ==
LOC: MFPLAB 15:59
PROVIDERS: PCP Family Medicine; Referring Provider Family Medicine; Visit Provider Family Medicine
DX: K21.9 Gastro-esophageal reflux disease without esophagitis (principal); E78.5 Hyperlipidemia, unspecified; R73.09 Other abnormal glucose
CPT/HCPCS: 36415; 80053; 80061; 83036; 85025

== ENCOUNTER → 2023-02-07 | Outpatient (CLI) | payer OTHER, SELFPAY ==
--- NOTE | 2023-02-07 15:25 | BI_ITS ---
MAMMOGRAPHY - BILATERAL SCREENING REASON FOR EXAM: Female, 52 years old. Routine annual screening examination. PERTINENT HISTORY: Grandmother with breast cancer. TECHNIQUE: Digital bilateral breast hamlet (3D mammographic acquisition) in the CC and MLO projections. 2-D mediolateral oblique (MLO) and craniocaudad (CC) views of both breasts were obtained. CAD: Full Field Digital Mammography with Computer Added Detection was performed. COMPARISON: Comparison is made with prior study of December 31, 2021 and December 29, 2020. FINDINGS: Breast Composition: The breasts are extremely dense, which lowers the sensitivity of mammography. There are no dominant masses or suspicious calcifications. Stable benign-appearing bilateral axillary lymph nodes. No other significant abnormalities are identified. There has been no significant change since the prior study. BI/SCRN MAMM (CAD)W/HAMLET BILAT IMPRESSION: Stable bilateral screening mammogram. Yearly follow-up mammogram recommended. (A) ASSESSMENT CATEGORY: BIRADS Category 2: Benign. A letter regarding these results will be sent to the patient by the facility within 30 days. Approximately 10% of breast cancers are not detected by mammography. A normal mammogram should not delay biopsy of a clinically suspicious abnormality. [id number] Electronically Signed: Nuno Dominguez MD at 8:34 EDT ,
== END | disposition home or self-care (01) ==
PROVIDERS: PCP Family Medicine; Referring Provider Student in an Organized Health Care Education/Training Program; Visit Provider Student in an Organized Health Care Education/Training Program
DX: Z12.31 Encounter for screening mammogram for malignant neoplasm of breast (principal)
CPT/HCPCS: 77063; 77067

== ENCOUNTER → 2023-02-16 | Outpatient (CLI) | payer OTHER, SELFPAY ==
--- NOTE | 2023-02-16 | IMM_PTH ---
PATIENT: VIVIANE CARTER LOC: [facility] U#:[id number] AGE/SX: 52/F ROOM: RE02/16/[address]: Dr. Sonia Solis DO : 1970 BED: DIS: 02/16/2023 SPEC #: [id number] RECD: 02/18/23 14:01 STATUS: FRACISCO REQ #: [id number] GEOVANNA: 02/16/23 00:[address]: Sonia Solis DEPT: IMMUNOHISTOCHEMISTRY RECD BY: Kathleen Titus ENTERED: 02/18/23 14:02 SP TYPE: IMMUNO OTHR DR: Dr. Jesse Hu MD Tissues: Endometrium, NOS Procedures: CEA (add) Pankeratin (add) CD68 (ADD) Vimentin (initial) PHYSICIAN & INSTITUTION [place] [id number] SPECIMEN INFORMATION: Tissue Source: Endometrial biopsy Clinical Info: Abnormal uterine bleeding Specimen Number: [id number] CPT code: 74451, 80791 x3 METHODOLOGY: Deparaffinized sections of prefer/formalin-fixed tissue or PAP/DQ stained slides are incubated with monoclonal/polyclonal antibodies/oligonucleotide probes. Localization is made via biotin free immunoperoxidase method. Appropriate controls are performed and reacted as expected. Results on target cell population are indicated in the following table: RESULTS: ANTIBODY / CLONE RESULT Vimentin (V9) positive CD68 (KP-1) positive AE1-3 (AE1/AE3/PCK26) negative CEA (11-7/TF-3HB-1) negative These tests were developed and their performance characteristics determined by [facility]. They may not have been cleared or approved by the U.S. Food and Drug Administration. The FDA has determined that such clearance or approval is not necessary. The above immunohistochemical/dualISH markers are ordered and reviewed by the Pathologist. INTERPRETATION: Endometrial biopsy: Macrophages present. No evidence of malignancy. AM:rocio 02/21/2023
--- NOTE | 2023-02-16 | EMB_PTH ---
PATIENT: VIVIANE CARTER LOC: [facility] #:[id number] AGE/SX: 52/F ROOM: RE02/16/[address]: Dr. Sonia Solis DO : 1970 BED: DIS: 02/16/2023 SPEC #: [id number] RECD: 02/16/23 17:29 STATUS: FRACISCO RE #: [id number] GEOVANNA: 02/16/23 00:[address]: Sonia Solis DEPT: SURGICAL PATHOLOGY RECD BY: Marlen Wall ENTERED: 02/17/23 10:44 SP TYPE: ENDOM BX/C EDDA DR: Dr. Jesse Hu MD Tissues: Endometrium, NOS Procedures: Surgery Specimen Level IV HEADER OPERATION: Endometrial biopsy PRE-OP DIAGNOSIS: Abnormal uterine bleeding TISSUE SUBMITTED: Endometrial biopsy MICROSCOPIC DIAGNOSIS Endometrium, biopsy: Strips of benign superficial glandular mucosa and macrophages. See comment. AM:rocio 02/18/2023 COMMENT Immunohistochemistry ([id number]) supports the above diagnosis. MICROSCOPIC DESCRIPTION Slides are reviewed. GROSS DESCRIPTION Received in fixative is one container labeled with the patient's name and designated endometrial biopsy. The specimen consists of light to dark garduno mucoid material aggregating to 2.0 x 1.0 x <0.1 cm. The specimen is totally submitted in one cassette. / AM:rocio 02/17/2023 TC:3 CPT: 38922
== END | disposition home or self-care (01) ==
PROVIDERS: PCP Family Medicine; Visit Provider Student in an Organized Health Care Education/Training Program
DX: N93.9 Abnormal uterine and vaginal bleeding, unspecified (principal)
CPT/HCPCS: 88305; 88341; 88342

== ENCOUNTER → 2023-10-19 | Outpatient (CLI) | payer OTHER, SELFPAY ==
[2023-10-19 17:34] LABS: Absolute Lymphocyte Count 2.14 X10^3/uL (0.83-4.51); Absolute Neutrophil Count 3.5 X10^3/uL (2.0-7.7); Basophil# 0.04 X10^3/uL; Basophil% 0.6 % (0-1); Eosinophil# 0.09 X10^3/uL; Eosinophils% 1.4 % (0-5); Hematocrit 44.3 % (37-47); Hemoglobin 14.3 g/dL (12.0-15.0); Lymphocyte # 2.14 X10^3/ul (0.83-4.51); Lymphocyte % 32.7 % (19-41); Mean Corp Hgb Conc 32.3 g/dL (32-36); Mean Corpuscular Hgb 29.9 pg (27.0-32.0); Mean Corpuscular Volume 92.7 fL (81-99); Mean Platelet Vol. 10.1 fl (6.2-12.0); Monocyte# 0.73 X10^3/uL; Monocyte% 11.2 % (0-10); NRBC Flagged by Analyzer 0 % (0-5); Neutrophil # 3.53 X10^3/uL (2.7-7.7); Neutrophil % 53.9 % (47-70); Platelet Count 319 K/mm3 (150-450); RBC Distribution Width CV 12.9 % (11.6-14.6); RBC Distribution Width SD 43.9 fl (35.1-43.9); Red Blood Count 4.78 M/mm3 (4.2-5.4); White Blood Count 6.5 K/mm3 (4.4-11.0)
[2023-10-19 18:06] LABS: AST(SGOT) 20 U/L (15-37); Alanine Aminotransfer ALT/SGPT 27 U/L (13-56); Albumin, Serum 3.9 g/dL (3.2-5.0); Alkaline Phosphatase 85 U/L (45-117); Anion Gap 7 (5-15); BUN 15 mg/dL (7-18); BUN/Creat Ratio 18.9 RATIO (10-20); Calcium,Total 8.9 mg/dL (8.5-10.1); Chloride 106 mmol/L (98-107); Cholesterol 149 mg/dL (200); Creatinine, Serum 0.79 mg/dL (0.55-1.02); EST Glomerular Filtration Rate 80 mL/min (>60); Est Glom Filt Rate - Afr Amer 97 mL/min (>60); Globulin 3.9 g/dL (2.2-4.2); Glucose 88 mg/dL (74-106); High Density Lipoprotein 47 mg/dL; Potassium 3.9 mmol/L (3.5-5.1); Protein, Total 7.8 g/dL (6.4-8.2); Sodium Level 139 mmol/L (136-145); Triglycerides 198 mg/dL; Very Low Density Lipoprotein 40 mg/dL (5-40)
== END | disposition home or self-care (01) ==
LOC: MFPLAB 16:44
PROVIDERS: PCP Family Medicine; Visit Provider Family Medicine
DX: E78.5 Hyperlipidemia, unspecified (principal)
CPT/HCPCS: 36415; 80053; 80061; 85025

== ENCOUNTER → 2024-03-26 | Outpatient (CLI) | payer OTHER, SELFPAY ==
--- NOTE | 2024-03-26 12:54 | BI_ITS ---
MAMMOGRAPHY - BILATERAL SCREENING REASON FOR EXAM: Female, 53 years old. Routine annual screening examination. PERTINENT HISTORY: Grandmother with breast cancer. TECHNIQUE: Digital bilateral breast hamlet (3D mammographic acquisition) in the CC and MLO projections. 2-D mediolateral oblique (MLO) and craniocaudad (CC) views of both breasts were obtained. CAD: Full Field Digital Mammography with Computer Added Detection was performed. COMPARISON: Comparison is made with prior study from February 07, 2023 and December 31, 2021. FINDINGS: Breast Composition: The breasts are extremely dense, which lowers the sensitivity of mammography. There are no dominant masses or suspicious calcifications. Stable bilateral fat-containing axillary lymph nodes. No other significant abnormalities are identified. There has been no significant change since the prior study. BI/SCRN MAMM (CAD)W/HAMLET BILAT IMPRESSION: Stable bilateral screening mammogram. Yearly follow-up mammogram recommended. (A) ASSESSMENT CATEGORY: BIRADS Category 2: Benign. A letter regarding these results will be sent to the patient by the facility within 30 days. Approximately 10% of breast cancers are not detected by mammography. A normal mammogram should not delay biopsy of a clinically suspicious abnormality. [id number] Electronically Signed: Nuno Dominguez MD at 14:16 EDT ,
== END | disposition home or self-care (01) ==
LOC: OPBI 12:54
PROVIDERS: PCP Family Medicine; Referring Provider Obstetrics & Gynecology; Visit Provider Obstetrics & Gynecology
DX: Z12.31 Encounter for screening mammogram for malignant neoplasm of breast (principal)
CPT/HCPCS: 77063; 77067

== ENCOUNTER → 2024-05-02 | Outpatient (CLI) | payer OTHER, SELFPAY ==
[2024-05-02 17:44] LABS: Absolute Lymphocyte Count 1.65 X10^3/uL (0.83-4.51); Absolute Neutrophil Count 3.2 X10^3/uL (2.0-7.7); Basophil# 0.03 X10^3/uL; Basophil% 0.6 % (0-1); Eosinophil# 0.07 X10^3/uL; Eosinophils% 1.3 % (0-5); Hematocrit 43.9 % (37-47); Lymphocyte # 1.65 X10^3/ul (0.83-4.51); Lymphocyte % 30.4 % (19-41); Mean Corp Hgb Conc 31.9 g/dL (32-36); Mean Corpuscular Hgb 29.8 pg (27.0-32.0); Mean Corpuscular Volume 93.4 fL (81-99); Mean Platelet Vol. 10.4 fl (6.2-12.0); Monocyte# 0.49 X10^3/uL; NRBC Flagged by Analyzer 0 % (0-5); Neutrophil # 3.17 X10^3/uL (2.7-7.7); Neutrophil % 58.5 % (47-70); Platelet Count 307 K/mm3 (150-450); RBC Distribution Width SD 44.6 fl (35.1-43.9); White Blood Count 5.4 K/mm3 (4.4-11.0)
[2024-05-02 18:15] LABS: ALB/GLOB Ratio 1.1 RATIO (0.9-2.4); AST(SGOT) 24 U/L (15-37); Alanine Aminotransfer ALT/SGPT 35 U/L (13-56); Albumin, Serum 3.9 g/dL (3.2-5.0); Alkaline Phosphatase 94 U/L (45-117); Anion Gap 3 (5-15); BUN 13 mg/dL (7-18); BUN/Creat Ratio 16.9 RATIO (10-20); Chloride 107 mmol/L (98-107); Cholesterol 174 mg/dL (200); Creatinine, Serum 0.77 mg/dL (0.55-1.02); EST Glomerular Filtration Rate 83 mL/min (>60); Est Glom Filt Rate - Afr Amer 101 mL/min (>60); Globulin 3.7 g/dL (2.2-4.2); Glucose 125 mg/dL (74-106); High Density Lipoprotein 49 mg/dL; Potassium 4.1 mmol/L (3.5-5.1); Protein, Total 7.6 g/dL (6.4-8.2); Sodium Level 139 mmol/L (136-145); Triglycerides 255 mg/dL; Very Low Density Lipoprotein 51 mg/dL (5-40)
== END | disposition home or self-care (01) ==
LOC: MFPLAB 15:51
PROVIDERS: PCP Family Medicine; Visit Provider Family Medicine
DX: K21.9 Gastro-esophageal reflux disease without esophagitis (principal); E78.5 Hyperlipidemia, unspecified
CPT/HCPCS: 36415; 80053; 80061; 85025

== ENCOUNTER → 2025-01-15 | Outpatient (CLI) | payer BC, SELFPAY ==
[2025-01-16 19:43] LABS: Hemoglobin A1c 5.6 % (<=5.6)
== END | disposition home or self-care (01) ==
LOC: MTLAB 07:58
PROVIDERS: PCP Family Medicine; Referring Provider Family Medicine; Visit Provider Family Medicine
DX: R73.09 Other abnormal glucose (principal)
CPT/HCPCS: 36415; 83036

== ENCOUNTER → 2025-03-18 | Outpatient (CLI) | payer BC, SELFPAY ==
--- NOTE | 2025-03-18 07:53 | ECHOD_ITS ---
Reason For Study Reason For Study: Palpitations Procedure This was a 2D Doppler, Color Flow transthoracic echocardiogram. Exam performed in department. Left Ventricle Normal LV size. Left ventricular systolic function is normal. The left ventricular ejection fraction is 65 %. No regional wall motion abnormalities noted. Right Ventricle Normal RV size. Normal systolic function. Atria Normal left atrium. Normal right atrium. Mitral Valve Normal mitral valve. Tricuspid Valve Normal tricuspid valve. Aortic Valve Trisinus/trileaflet aortic valve. Pulmonic Valve Normal pulmonic valve. Great Vessels Normal aortic root. The pulmonary artery is normal size. Normal inferior vena cava. Pericardium/Pleural No pericardial effusion. MMode/2D Measurements & Calculations LVIDd: 4.2 cm IVSd: 1.0 cm Ao root diam: 3.5 cm LVIDs: 2.5 cm LVPWd: 0.96 cm RVDd: 3.0 cm FS: 40.3 % LAV(MOD-bp): 41.4 ml LVAd ap4: 24.3 cm2 LVAd ap2: 24.0 cm2 LAV(MOD-bp) Indexed: 23.5 ml/m2 LVLd ap4: 7.6 cm LVLd ap2: 7.3 cm LAV(MOD-sp2): 42.3 ml EDV(MOD-sp4): 65.8 ml EDV(MOD-sp2): 65.9 ml LAV(MOD-sp4): 38.4 ml EDV(sp4-el): 66.3 ml EDV(sp2-el): 67.3 ml LVAs ap4: 11.7 cm2 LVAs ap2: 13.1 cm2 LVLs ap4: 6.4 cm LVLs ap2: 6.5 cm ESV(MOD-sp4): 18.5 ml ESV(MOD-sp2): 23.4 ml ESV(sp4-el): 18.1 ml ESV(sp2-el): 22.5 ml EF(MOD-sp4): 71.9 % EF(MOD-sp2): 64.5 % EF(sp4-el): 72.7 % SV(MOD-sp4): 47.4 ml SV(MOD-sp2): 42.5 ml SV(sp4-el): 48.2 ml SI(MOD-sp4): 26.9 ml/m2 SI(MOD-sp2): 24.1 ml/m2 LA A4 area: 15.7 cm2 LA dimension(2D): 3.8 cm RA A4 area: 11.0 cm2 TAPSE: 2.1 cm Time Measurements MV dec time: 0.24 sec Doppler Measurements & Calculations MV E max joshua: 65.4 cm/sec Lat Peak E' Joshua: 12.8 cm/sec Med Peak E' Joshua: 7.0 cm/sec MV A max joshua: 70.7 cm/sec E/E' lat: 5.1 E/E' med: 9.3 MV E/A: 0.92 Ao V2 max: 144.7 cm/sec LV V1 max: 107.9 cm/sec MV dec slope: 275.2 cm/sec2 Ao max P.4 mmHg LV V1 max P.7 mmHg Ao V2 mean: 99.6 cm/sec LV V1 mean P.6 mmHg Ao mean P.4 mmHg LV V1 mean: 77.3 cm/sec Ao V2 VTI: 28.7 cm LV V1 VTI: 25.4 cm AV (velocity ratio): 0.88 PA V2 max: 95.2 cm/sec TR max joshua: 254.9 cm/sec TR max P.0 mmHg ECHO/Echo Complete Interpretation Summary Normal LV size. Left ventricular systolic function is normal. The left ventricular ejection fraction is 65 %. Structurally normal valves. Ordering Physician: Taiwo Adkins Referring Physician: Jesse Hu Performed By: Lacey Edwards RDCS
== END | disposition home or self-care (01) ==
LOC: CVS 07:52
PROVIDERS: PCP Family Medicine; Referring Provider Internal Medicine Cardiovascular Disease; Visit Provider Internal Medicine Cardiovascular Disease
DX: R00.2 Palpitations (principal)
CPT/HCPCS: 93306

== ENCOUNTER 2025-03-20 15:30 | Outpatient (RCR) | payer BC, SELFPAY | END 2025-03-20 23:59 | LOC: NS 15:30 | PROVIDERS: PCP Family Medicine; Referring Provider Family Medicine; Visit Provider Family Medicine | DX: Z71.3 Dietary counseling and surveillance (principal); E66.3 Overweight; Z68.27 Body mass index [BMI] 27.0-27.9, adult | CPT/HCPCS: 97802; 97803 ==

== ENCOUNTER 2025-04-03 15:54 | Outpatient (RCR) | payer BC, SELFPAY | END 2025-04-20 23:59 | LOC: NS 15:54 | PROVIDERS: PCP Family Medicine; Referring Provider Family Medicine; Visit Provider Family Medicine | DX: Z71.3 Dietary counseling and surveillance (principal); E66.3 Overweight; Z68.27 Body mass index [BMI] 27.0-27.9, adult | CPT/HCPCS: 97803 ==

== ENCOUNTER → 2025-04-16 | Outpatient (CLI) | payer BC, SELFPAY ==
--- NOTE | 2025-04-16 15:30 | BI_ITS ---
EXAM: SCRN MAMM (CAD)W/HAMLET BILAT DATE: 04/16/2025 CLINICAL HISTORY: F, Age 54 y/o , SCREENING BREAST CANCER RISK ASSESSMENT: Not reported TECHNIQUE: Bilateral screening digital breast tomosynthesis with 2D and 3D images. Computer aided detection. COMPARISON: None FINDINGS: TISSUE DENSITY: The breast tissue is heterogenously dense, which may obscure small masses. Bilateral Breast Mammographic Findings: No suspicious masses, calcifications or other abnormalities are identified. BI/SCRN MAMM (CAD)W/HAMLET BILAT IMPRESSION: OVERALL FINAL ASSESSMENT: BIRADS 1 NEGATIVE RECOMMENDATION: Routine annual follow-up in 1 Year A letter with findings and recommendations will be mailed to the patient. Reading Location: [id number]
== END | disposition home or self-care (01) ==
LOC: OPBI 15:29
PROVIDERS: PCP Family Medicine; Referring Provider Obstetrics & Gynecology; Visit Provider Obstetrics & Gynecology
DX: Z12.31 Encounter for screening mammogram for malignant neoplasm of breast (principal)
CPT/HCPCS: 77063; 77067

== ENCOUNTER 2025-05-14 15:05 | Outpatient (RCR) | payer BC, SELFPAY | END 2025-05-20 23:59 | LOC: NS 15:05 | PROVIDERS: PCP Family Medicine; Referring Provider Family Medicine; Visit Provider Family Medicine | DX: Z71.3 Dietary counseling and surveillance (principal); E66.3 Overweight; Z68.27 Body mass index [BMI] 27.0-27.9, adult | CPT/HCPCS: 97803 ==

== ENCOUNTER 2025-06-18 15:26 | Outpatient (RCR) | payer BC, SELFPAY | END 2025-06-20 23:59 | LOC: NS 15:26 | PROVIDERS: PCP Family Medicine; Referring Provider Family Medicine; Visit Provider Family Medicine | DX: Z71.3 Dietary counseling and surveillance (principal); E66.3 Overweight; E78.5 Hyperlipidemia, unspecified; Z68.26 Body mass index [BMI] 26.0-26.9, adult | CPT/HCPCS: 97803 ==

== ENCOUNTER → 2025-07-17 | Outpatient (CLI) | payer BC, SELFPAY ==
[2025-07-17 18:06] LABS: Hematocrit 43.0 % (37-47); Hemoglobin 14.2 g/dL (12.0-15.0); Immature Granulocytes Count 0.010 X10^3/uL (0.0-0.0); Mean Corp Hgb Conc 33.0 g/dL (32-36); Mean Corpuscular Volume 91.7 fL (81-99); Mean Platelet Vol. 10.3 fl (6.2-12.0); NRBC Flagged by Analyzer 0 % (0-5); Platelet Count 322 K/mm3 (150-450); RBC Distribution Width CV 13.1 % (11.6-14.6); RBC Distribution Width SD 43.7 fl (35.1-43.9); Red Blood Count 4.69 M/mm3 (4.2-5.4); White Blood Count 6.0 K/mm3 (4.4-11.0)
[2025-07-17 18:09] LABS: AST(SGOT) 26 U/L (<=31); Alanine Aminotransfer ALT/SGPT 23 U/L (<=34); Albumin, Serum 4.5 g/dL (3.5-5.0); Alkaline Phosphatase 82 U/L (35-104); Anion Gap 12 (5-15); BUN 18 mg/dL (4-19); BUN/Creat Ratio 22.9 RATIO (10-20); Calcium,Total 9.5 mg/dL (7.6-11.0); Carbon Dioxide 23.7 mmol/L (21.0-32.0); Chloride 104 mmol/L (98-108); Cholesterol 173 mg/dL (<=200); Globulin 3.0 g/dL (2.2-4.2); Glucose 98 mg/dL (70-99); Low Density Lipoprotein Calc. 77 mg/dL; Potassium 3.8 mmol/L (3.3-5.1); Triglycerides 231 mg/dL; Very Low Density Lipoprotein 46 mg/dL (5-40); cholesterol:hdl ratio screen 3.47
== END | disposition home or self-care (01) ==
LOC: MFPLAB 16:23
PROVIDERS: PCP Family Medicine; Referring Provider Family Medicine; Visit Provider Family Medicine
DX: E78.5 Hyperlipidemia, unspecified (principal)
CPT/HCPCS: 36415; 80053; 80061; 85025

== ENCOUNTER 2025-07-29 16:03 | Outpatient (RCR) | payer BC, SELFPAY | END 2025-08-20 23:59 | LOC: NS 16:03 | PROVIDERS: PCP Family Medicine; Referring Provider Family Medicine; Visit Provider Family Medicine | DX: Z71.3 Dietary counseling and surveillance (principal); E66.3 Overweight; E78.5 Hyperlipidemia, unspecified; Z68.26 Body mass index [BMI] 26.0-26.9, adult | CPT/HCPCS: 97803 ==

== ENCOUNTER 2025-09-03 16:00 | Outpatient (RCR) | payer BC, SELFPAY | END 2025-09-20 23:59 | LOC: NS 16:00 | PROVIDERS: PCP Family Medicine; Referring Provider Family Medicine; Visit Provider Family Medicine | DX: Z71.3 Dietary counseling and surveillance (principal); E66.3 Overweight; Z68.26 Body mass index [BMI] 26.0-26.9, adult; E78.5 Hyperlipidemia, unspecified | CPT/HCPCS: 97803 ==

== ENCOUNTER 2025-10-07 16:00 | Outpatient (RCR) | payer BC, SELFPAY | END 2025-10-20 23:59 | LOC: NS 16:00 | PROVIDERS: PCP Family Medicine; Referring Provider Family Medicine; Visit Provider Family Medicine | DX: Z71.3 Dietary counseling and surveillance (principal); E66.3 Overweight; E78.5 Hyperlipidemia, unspecified; Z68.27 Body mass index [BMI] 27.0-27.9, adult | CPT/HCPCS: 97803 ==

== ENCOUNTER 2025-11-11 07:03 | Outpatient (RCR) | payer BC, SELFPAY | END 2025-11-20 23:59 | LOC: NS 07:03 | PROVIDERS: PCP Family Medicine; Referring Provider Family Medicine; Visit Provider Family Medicine | DX: Z71.3 Dietary counseling and surveillance (principal); E66.3 Overweight; Z68.27 Body mass index [BMI] 27.0-27.9, adult; E78.5 Hyperlipidemia, unspecified | CPT/HCPCS: 97803 ==

== ENCOUNTER → 2025-11-11 | Outpatient (CLI) | payer BC, SELFPAY ==
--- OUTSIDE RECORDS SUMMARY | 2025-11-11 07:01 | XMS RPT_ITS | CCD ---
Author Organization [facility] CliniSyde Care Team Providers Care Clinical Instructor Name Role Phone Dr. Jesse Hu Primary Care Provider [phone] Dr. Jesse Hu Referring Provider Maxim, Dr. Delbert Funes Attending Provider [phone] Jesse Hu Primary Care Provider [phone] Dr. Jesse Hu Referring Provider Maxim, Dr. Delbert Funes Attending Provider [phone] Maxim, Dr. Delbert Funes Other Provider Dr. Jesse Hu Primary Care Provider [phone] Dr. Jesse Hu Referring Provider Maxim, Dr. Delbert Funes Attending Provider Cebul, Dr. Delbert Funes Other Provider Sisi Lerma MD Primary Care Provider [phone] Jesse Hu Primary Care Provider [phone] Dr. Jesse Hu Referring Provider Dr. Kaci Lange Attending Provider Dr. Jesse Hu MD Primary Care Provider Dr. Jesse Hu MD Attending Provider Dr. Jesse Hu MD Referring Provider Dr. Taiwo Adkins MD Attending Provider Dr. Taiwo Adkins MD Referring Provider Alhaji Freeman Referring Provider Iván SHORT, Dr. Redding Attending Provider Salena Berrios DO, Dr. Clemons Attending Provider Salena Berrios DO, Dr. Clemons Referring Provider Mayte SHORT, Dr. Jesse Francisco Primary Care Provider Mayte SHORT, Dr. Jesse Francisco Referring Provider Mayte SHORT, Dr. Jesse Francisco Attending Provider Mayte SHORT, Dr. Jesse Francisco Primary Care Provider Lucille SHORT, Dr. Maravilla Attending Provider Mayte SHORT, Dr. Jesse Francisco Referring Provider Mayte SHORT, Dr. Jesse Francisco Primary Care Provider [phone] Mayte SHORT, Dr. Jesse Francisco Attending Provider Mayte SHORT, Dr. Jesse Francisco Referring Provider Mayte SHORT, Dr. Jesse Francisco Primary Care Physician Mayte SHORT, Dr. Jesse Francisco Referring Provider Salena Berrios DO, Dr. Clemons Attending Physician Mayte SHORT, Dr. Jesse Francisco Attending Physician Jesse Hu Attending Unavailable Jesse Hu Primary Care Unavailable Jesse Hu Referring Unavailable Taiwo Adkins Attending Unavailable Jesse Hu Primary Care Unavailable Taiwo Adkins Referring Unavailable Jesse Hu Referring Unavailable Jesse Hu Primary Care Unavailable Taiwo Adkins Attending Unavailable Kaci Lange Attending UnavailJesse Phillip Primary Care Unavailable Jesse Hu Referring Unavailable Jesse Hu Primary Care Unavailable Vahid Minor Attending Unavailable Taiwo Adkins Attending Unavailable Jesse Hu Primary Care Unavailable Taiwo Adkins Referring Unavailable Kaci Lange Referring UnavailKaci Samano Attending Unavailabl Jesse Merritt Primary Care Unavailable Jesse Hu Attending Unavailable Jesse Hu Referring Unavailable SchJesse cooley Primary Care Unavailable Alhaji Freeman Referring Unavailable Jesse Hu Primary Care Unavailable Tiawo Adkins Attending Unavailable Jesse Hu Attending Unavailable Jesse Hu Primary Care Unavailable Jesse Hu Referring Unavailable Jesse Hu Attending Unavailable Jesse Hu Primary Care Unavailable Jesse Hu Referring Unavailable Jesse Hu Attending Unavailable Jesse Hu Primary Care Unavailable SchJesse cooley Referring Unavailable Jesse Hu Attending Unavailable Jesse Hu Primary Care Unavailable Jesse Hu Referring Unavailable Jesse Hu Attending Unavailable Jesse Hu Primary Care Unavailable SchJesse cooley Referring Unavailable Jesse Hu Attending Unavailable Jesse Hu Primary Care Unavailable Jesse Hu Referring Unavailable Jesse Hu Referring Unavailable Jesse Hu Attending Unavailable Jesse Hu Primary Care Unavailable Allergies Allergy Classification Reported Allergen(s) Allergy Type Date of Onset Reaction(s) Facility (15 sources) Latex Allergy to substance 05-03-2022 Rash [facility] (1 source) Latex Drug allergy (disorder) 05-03-2025 [facility] Repository Medications Current Medications Medication Drug Class(es) Dates Sig (Normalized) Sig (Original) apremilast 30 mg oral tablet (3 sources) Start: 10-14-2020 Apremilast Active 60 MG PO MOWEOctober 14, 2020 1:55pm Start: 02-23-2019 take 1 tablet by mouth once Ap remilast (Otezla) 30 MG tablet Active 30 MG PO every Tuesday, , , Sat February 23, 2019 11:01am Start: 02-22-2018 OTEZLA 30 mg t ablet Ashwagandha Extract (1 source) Start: 03-05-2024 Ashwagandha Ex tract Active MG .Route March 05, 2024 12:00am as directed Ashwagandha Extract 500 mg capsule (8 sources) Start: 03-05-2024 Start: 03-05-2024 Ashwagandha Ex tract 500 mg capsule Active mg .Route March 05, 2024 12:00am as directed biotin 1 mg oral capsule (15 sources) Start: 02-23-2019 take 1 capsule by mouth once daily calcium carbonate 1500 mg / cholecalciferol 500 unt oral capsule (7 sources) Vitamin D Start: 02-20-2025 estradiol 0.1 mg/ml vaginal cream (5 sources) Estrogen Start: 05-03-2025 lactobacillus acidophilus 1 mg oral tablet (1 source) Start: 02-23-2019 take 0.5 mg by mouth once daily Lactobacillus Acidophilus Active 0.5 MG PO DAILY February 23, 2019 11:01am Lactobacillus Combination No.9 (Adult 50 Plus Probiotic) 4 billion cell capsule (7 sources) Start: 02-06-2025 take 4 capsules by mouth once daily Start: 02-06-2025 take 4 capsules by m outh once daily Lactobacillus Combination No.9 (Adult 50 Plus Probiotic) 4 billion cell capsule Active 4000 NMA PO daily February 06, 2025 12:00am administer with a meal Magnesium (20 sources) Start: 02-20-2025 take 2 tablets by mouth once d aily Start: 02-20-2025 take 2 tablets by mo [facility] once daily Magnesium 200 mg tablet Active 400 mg PO DAILY February 20, 2025 2:34pm Start: 02-23-2019 take 200 mg by mouth once birdie y Magnesium Active 200 MG PO DAILY February 23, 2019 11:01am Start: 02-23-2019 End: 02-20-2025 take 1 tablet by mouth once daily Magnesium 200 MG tablet Discontinued 200 mg PO DAILY February 23, 2019 12:00am February 20, 2025 2:36pm Start: 02-23-2019 take 1 tablet by edwina once daily Magnesium 200 MG tablet Active 200 mg PO DAILY February 23, 2019 12:00am Start: 02-23-2019 take 200 mg by mouth once birdie y Magnesium Active 200 MG PO DAILY February 22, 2019 11:00pm Start: 02-23-2019 take 200 mg by mouth once birdie y Magnesium Active 200 MG PO DAILY February 23, 2019 12:00am pantoprazole 40 mg delayed release oral tablet (7 sources) Proton Pump Inhibitor Start: 02-20-2025 take 1 tablet by mouth once daily in the morning prednisoLONE acetate 10 mg/ml ophthalmic suspension (8 sources) Corticosteroid Start: 02-06-2025 prednisolone sod ium phosphate (PREDNISOL OPHTHALMIC) Use in eyes. 0 Active Comment on above: Use in eyes. rosuvastatin calcium 40 mg oral tablet (14 sources) HMG-CoA Reductase Inhibitor Start: 09-13-2022 take 1 tablet by mouth once daily schisandra extract powder (7 sources) Start: 02-06-2025 Start: 02-06-2025 schisandra ext ract powder Active PO .weekly February 06, 2025 12:00am topiramate 25 mg oral tablet (5 sources) Start: 05-03-2025 take 1 tablet by mouth once da marla Turmeric extract (7 sources) Start: 02-06-2025 take 1 mg by mouth once daily Start: 02-06-2025 take 1 mg by mouth once daily Turmeric 400 mg capsule Active mg PO DAILY February 06, 2025 12:00am Completed/Discontinued Medications Medication Drug Class(es) Dates Sig (Normalized) Sig (Original) calcium carbonate 1500 mg oral tablet (15 sources) Start: 02-23-2019 End: 02-20-2025 take 1 tablet by mouth once daily Calcium Carbonate 600 MG tablet Discontinued 600 mg PO DAILY February 23, 2019 12:00am February 20, 2025 2:35pm Calcium Carbonate / magnesium carbonate (1 source) Start: 07-27-2013 take 1 tablet by mouth once daily Calcium and Magnesium Carbonates per tablet Take 1 tablet by mouth once daily. 0 07/27/2013 Active Comment on above: Take 1 tablet by edwina th once daily. clobetasol propionate 0.5 mg/ml topical foam (1 source) Corticosteroid Clobetasol Propionate (OLUX) 0.05 % topical foam Apply to affected area two times a week. 0 Active Comment on above: Apply to affected ar ea two times a week. CYANOCOBALAMIN, VITAMIN B-12, (VITAMIN B-12 ORAL) (1 source) CYANOCOBALAMIN, VITAMIN B-12, (VITAMIN B-12 ORAL) Take by mouth. 0 Active Comment on above: Take by mouth. cyclobenzaprine hydrochloride 10 mg oral tablet (1 source) Muscle Relaxant Start: 08-19-2021 take 1 tablet by mouth three times daily as needed for muscle spasms cyclobenzaprine (FLEXERIL) 10 mg tablet Indications: Muscle strain Take 1 tablet by mouth three times daily as needed for muscle spasm for up to 30 doses. 30 tablet 0 08/19/2021 Active Comment on above: Take 1 tablet by edwina th three times daily as needed for muscle spasm for up to 30 doses. dexlansoprazole 60 mg delayed release oral capsule (3 sources) Proton Pump Inhibitor Start: 12-18-2021 take 1 capsule by mouth once daily Dexlansoprazole (DEXILANT) 60 mg CpDM Indications: Irritable bowel syndrome with diarrhea Take 60 mg by mouth once daily. 90 capsule 0 12/18/2021 Active Start: 02-23-2019 End: 02-20-2025 take 2 capsules by mouth once daily Dexlansoprazole (Dexilant) 30 MG capsule,biphase delayed releas Active 60 MG PO DAILY February 23, 2019 11:01am Comment on above: Take 60 mg by mouth once daily. Dexlansoprazole (Dexilant) 30 MG capsule,biphase delayed releas (13 sources) Start: 02-24-20 End: 02-21-20 take 2 capsules by mouth once daily Dexlansoprazole (Dexilant) 30 MG capsule,biphase delayed releas Discontinued 60 mg PO DAILY February 23, 2019 12:00am February 20, 2025 2:35pm Start: 02-23-2019 take 2 capsules by m outh once daily Dexlansoprazole (Dexilant) 30 MG capsule,biphase delayed releas Active 60 mg PO DAILY February 23, 2019 12:00am Start: 02-23-2019 take 2 capsules by m outh once daily Dexlansoprazole (Dexilant) 30 MG capsule,biphase delayed releas Active 60 MG PO DAILY February 22, 2019 11:00pm Start: 02-23-2019 take 2 capsules by m outh once daily Dexlansoprazole (Dexilant) 30 MG capsule,biphase delayed releas Active 60 MG PO DAILY February 23, 2019 12:00am lactobacillus acidophilus [id number] unt / pectin 10 mg oral capsule (1 source) Start: 08-08-2015 acidophilus-pectin, citrus (ACIDOPHILUS PROBIOTIC) 100 million cell-10 mg cap Take 1 capsule by mouth. 0 08/08/2015 Active Comment on above: Take 1 capsule by [facility]. oxyCODONE hydrochloride 5 mg oral tablet (15 sources) Opioid Agonist Start: 03-02-2019 End: 03-05-2019 take 1 tablet by mouth every six hours as needed for pain Oxycodone 5 MG tablet Discontinued 5 mg PO EVERY 6 HOURS NEEDED as needed for Mod-Severe Pain (4-10/) 10 3 0 March 02, 2019 12:00am March 04, 2019 12:00am March 05, 2019 12:08am Postoperative abdominal pain Unspecified abdominal pain simvastatin 20 mg oral tablet (2 sources) HMG-CoA Reductase Inhibitor Start: 11-28-2020 take 1 tablet by mouth once daily at bedtime simvastatin (ZOCOR) 20 mg tablet Indications: Hyperlipidemia, unspecified hyperlipidemia type Take 1 tablet by mouth daily at bedtime. 90 tablet 3 11/28/2020 Active Start: 02-23-2019 take 20 mg by mouth once daily Simvastatin Active 20 MG PO DAILY February 23, 2019 11:01am Comment on above: Take 1 tablet by edwina th daily at bedtime. Problems Active Problems Problem Classification Problem Date Documented Da te Episodic/Chronic Disorders of lipid metabolism (15 sources) Hyperlipidemia; Translations: [Hyperlipidemia, unspecified] Onset: 3 11-16-2021 Chronic Comment on above: ON MED Endometriosis (9 sources) Endometriosis (clinical); Translations: [Endometriosis, unspecified] 03-05-2024 Chronic Esophageal disorders (20 sources) Gastroesophageal reflux disease; Translations: [Gastro-esophageal reflux disease without esophagitis] Onset: 3 05-03-2022 Chronic Comment on above: CONTROLLED WITH MED Inflammation; infection of eye (except that caused by tuberculosis or sexually transmitteddisease) (7 sources) Recurrent acute iridocyclitis, left eye; Translations: [Recurrent iritis of left eye] 02-06-2025 Episodic Osteoarthritis (15 sources) Arthritis; Translations: [Unspecified osteoarthritis, unspecified site] 05-03-2022 Chronic Other circulatory disease (7 sources) History of cardiac arrhythmia; Translations: [Personal history of other diseases of the circulatory system] 02-06-2025 Episodic Comment on above: SKIPS BEATS AT TIME S Other gastrointestinal disorders (1 source) Irritable bowel syndrome; Translations: [Irritable bowel syndrome without diarrhea] 10-04-2014 Chronic Other skin disorders (7 sources) H/O: arthritis; Translations: [Personal history of diseases of the skin and subcutaneous tissue] 02-06-2025 Episodic Past or Other Problems Problem Classification Problem Date Documented Da te Episodic/Chronic Abdominal pain (2 sources) Abdominal pain; Translations: [Unspecified abdominal pain] Onset: 11-04-2010 11-04-2010 Episodic Biliary tract disease (1 source) Disorder of gallbladder; Translations: [Other specified diseases of gallbladder] Onset: 10-23-2010 10-23-2010 Episodic Cardiac dysrhythmias (12 sources) Palpitations; Translations: [Palpitations] Onset: 04-02-2025 02-20-2025 Episodic Diabetes mellitus without complication (1 source) Other abnormal glucose; Translations: [Other abnormal glucose] Onset: 01-29-2025 Episodic Esophageal disorders (1 source) Esophagitis; Translations: [Esophagitis, unspecified] Onset: 11-04-2010 11-04-2010 Episodic Nausea and vomiting (2 sources) Nausea; Translations: [Nausea] Onset: 10-23-2010 10-23-2010 Episodic Other circulatory disease (1 source) Personal history of other diseases of the circulatory system; Translations: [Personal history of other diseases of the circulatory system] Onset: 02-20-2025 Episodic Other screening for suspected conditions (not mental disorders or infectious disease) (9 sources) Patient encounter status; Translations: [Encounter for screening for malignant neoplasm of intestinal tract, unspecified] Onset: 04-22-2025 Episodic Results Test Name Value Interpretation Reference Range Facility Absolute lymphocyte countOrd ered By: Jesse Hu on 07-17-2025 Lymphocytes Auto (Unsp spec) [#/Vol] 1.82 10*3/uL 0.83-4.51 [facility] Absolute neutrophil countOrd ered By: Jesse Hu on 07-17-2025 Neutrophils (Bld) [#/Vol] 3.5 10*3/uL 2.0-7.7 [facility] Anion gap in Serum or Plasma Ordered By: Jesse Hu on 07-17-2025 Anion gap [Moles/Vol] 12 mmol/L - [facility] Automated lymphocyte count a s percentage of total leukocytesOrdered By: Jesse Hu on 07-17-2025 Lymphocytes/100 WBC Auto (Unsp spec) 30.3 % - [facility] BUN/creatinine ratioOrdered By: Jesse Hu on 07-17-2025 Urea nitrogen/Creatinine [Mass ratio] 22.9 mg/mg High 10- [facility] Basophil percentageOrdered B y: Jesse Hu on 07-17-2025 Basophils/100 WBC (Bld) 0.5 % 0-1 [facility] Bilirubin, totalOrdered By: Jesse Hu on 07-17-2025 Bilirubin [Mass/Vol] 0.48 mg/dL 0.00-1.30 [facility] CBC W/Diff, Automatedon 06-22 Absolute Lymph 1.82 X10 3/uL Normal 0.83-4.51 [facility] Comment on above: Order Comment: Order Date: 07/17/25 Order Info: [id number] - CBCD Performed By: #### L 100.0100, L500.4100, L500.4050 #### [facility] [address] [place], [address] Absolute Neut 3.5 X10 3/uL Normal 2.0-7.7 [facility] Comment on above: Order Comment: Order Date: 07/17/25 Order Info: [id number] - CBCD Performed By: #### L 100.0100, L500.4100, L500.4050 #### [facility] [address] [place], [address] Basophils/100 WBC (Bld) 0.5 % Normal 0-1 [facility] Comment on above: Order Comment: Order Date: 07/17/25 Order Info: [id number]- - CBCD Performed By: #### L 100.0100, L500.4100, L500.4050 #### [facility] [address] [place], [address] Eosinophils/100 WBC (Bld) 1.2 % Normal 0-5 [facility] Comment on above: Order Comment: Order Date: 07/17/25 Order Info: [id number] - CBCD Performed By: #### L 100.0100, L500.4100, L500.4050 #### [facility] [address] [place], [address] Erythrocyte distribution width (RBC) [Ratio] 13.1 % Normal 11.6-14.6 [facility] Comment on above: Order Comment: Order Date: 07/17/25 Order Info: [id number] - CBCD Performed By: #### L 100.0100, L500.4100, L500.4050 #### [facility] [address] [place], [address] Hematocrit (Bld) [Volume fraction] 43.0 % Normal 37-47 [facility] Comment on above: Order Comment: Order Date: 07/17/25 Order Info: [id number]- - CBCD Performed By: #### L 100.0100, L500.4100, L500.4050 #### [facility] [address] [place], [address] Hemoglobin (Bld) [Mass/Vol] 14.2 g/dL Normal 12.0-15.0 [facility] Comment on above: Order Comment: Order Date: 07/17/25 Order Info: 018- - CBCD Performed By: #### L 100.0100, L500.4100, L500.4050 #### [facility] [address] [place], [address] IG% 0.200 Normal 0.0-0.9 [facility] Comment on above: Order Comment: Order Date: 07/17/25 Order Info: [id number]- - CBCD Result Comment: IG% - Immature Granulocytes (promyelocytes, myelocytes and metamyelocytes) > 1% indicates that a LEFT SHIFT is Present. Performed By: #### L 100.0100, L500.4100, L500.4050 #### [facility] [address] [place], [address] Lymphocytes/100 WBC (Bld) 30.3 % Normal 19-41 [facility] Comment on above: Order Comment: Order Date: 07/17/25 Order Info: [id number]- - CBCD Performed By: #### L 100.0100, L500.4100, L500.4050 #### [facility] [address] [place], [address] MCH (RBC) [Entitic mass] 30.3 pg Normal 27.0-32.0 [facility] Comment on above: Order Comment: Order Date: 07/17/25 Order Info: [id number] - CBCD Performed By: #### L 100.0100, L500.4100, L500.4050 #### [facility] [address] [place], [address] MCHC (RBC) [Mass/Vol] 33.0 g/dL Normal 32-36 [facility] Comment on above: Order Comment: Order Date: 07/17/25 Order Info: [id number] - CBCD Performed By: #### L 100.0100, L500.4100, L500.4050 #### [facility] [address] [place], [address] MCV (RBC) [Entitic vol] 91.7 fL Normal 81-99 [facility] Comment on above: Order Comment: Order Date: 07/17/25 Order Info: [id number]- - CBCD Performed By: #### L 100.0100, L500.4100, L500.4050 #### [facility] [address] [place], [address] Monocytes/100 WBC (Bld) 10.0 % Normal 0-10 [facility] Comment on above: Order Comment: Order Date: 07/17/25 Order Info: [id number] - CBCD Performed By: #### L 100.0100, L500.4100, L500.4050 #### [facility] [address] [place], [address] Neutrophils/100 WBC (Bld) 57.8 % Normal 47-70 [facility] Comment on above: Order Comment: Order Date: 07/17/25 Order Info: [id number] - CBCD Performed By: #### L 100.0100, L500.4100, L500.4050 #### [facility] [address] [place], [address] Nucleated RBC (Bld) [#/Vol] 0 10*3/uL Normal 0-5 [facility] Comment on above: Order Comment: Order Date: 07/17/25 Order Info: [id number] - CBCD Performed By: #### L 100.0100, L500.4100, L500.4050 #### [facility] [address] [place], [address] Platelet mean volume (Bld) [Entitic vol] 10.3 fL Normal 6.2-12.0 [facility] Comment on above: Order Comment: Order Date: 07/17/25 Order Info: [id number] - CBCD Performed By: #### L 100.0100, L500.4100, L500.4050 #### [facility] [address] [place], [address] Platelets (Bld) [#/Vol] 322 10*3/uL Normal 150-450 [facility] Comment on above: Order Comment: Order Date: 07/17/25 Order Info: [id number] - CBCD Performed By: #### L 100.0100, L500.4100, L500.4050 #### [facility] [address] [place], [address] RBC (Bld) [#/Vol] 4.69 10*6/uL Normal 4.2-5.4 [facility] Comment on above: Order Comment: Order Date: 07/17/25 Order Info: [id number] - CBCD Performed By: #### L 100.0100, L500.4100, L500.4050 #### [facility] [address] [place], [address] RDW SD 43.7 fl Normal 35.1-43.9 [facility] Comment on above: Order Comment: Order Date: 07/17/25 Order Info: [id number] - CBCD Performed By: #### L 100.0100, L500.4100, [id number] #### [facility] [address] [place], [address] WBC (Bld) [#/Vol] 6.0 10*3/uL Normal 4.4-11.0 [facility] Comment on above: Order Comment: Order Date: 07/17/25 Order Info: [id number] - CBCD Performed By: #### L 100.0100, L500.4100, L500.4050 #### [facility] [address] [place], [place], [address] Calculated very low density lipoprotein (VLDL) cholesterol measurementOrdered By: Jesse Hu on 07-17-2025 Calculated very low density lipoprotein (VLDL) cholesterol measurement 46 mg/dL High 5-40 [facility] Carbon dioxide, total [Moles /volume] in Central venous bloodOrdered By: Jesse Hu on 07-17-2025 CO2 [Moles/Vol] 23.7 mmol/L 21.0-32.0 [facility] Chloride assayOrdered By: Roma Hu on 07-17-2025 Chloride [Moles/Vol] 104 mmol/L 98-108 [facility] Comprehensive Metabolic Prof ilon 07-17-2025 Albumin [Mass/Vol] 4.5 g/dL Normal 3.5-5.0 [facility] Comment on above: Order Comment: Order Date: 07/17/25 Order Info: [id number] - CMP Order Info: [id number] - LIPID Performed By: #### L 100.0100, L500.4100, L500.4050 #### [facility] [address] [place], [address] Albumin/Globulin [Mass ratio] 1.5 {ratio} Normal 0.9-2.4 [facility] Comment on above: Order Comment: Order Date: 07/17/25 Order Info: [id number] - CMP Order Info: [id number] - LIPID Performed By: #### L 100.0100, L500.4100, L500.4050 #### [facility] [address] [place], [address] ALK PHOS 82 U/L Normal 35-104 [facility] Comment on above: Order Comment: Order Date: 07/17/25 Order Info: [id number] - CMP Order Info: [id number] - LIPID Performed By: #### L 100.0100, L500.4100, L500.4050 #### [facility] [address] [place], [address] ALT [Catalytic activity/Vol] 23 U/L Normal <=34 [facility] Comment on above: Order Comment: Order Date: 07/17/25 Order Info: [id number] - CMP Order Info: [id number] - LIPID Performed By: #### L 100.0100, L500.4100, L500.4050 #### [facility] [address] [place], [address] AST [Catalytic activity/Vol] 26 U/L Normal <=31 [facility] Comment on above: Order Comment: Order Date: 07/17/25 Order Info: [id number] - CMP Order Info: [id number] - LIPID Performed By: #### L 100.0100, L500.4100, [id number] #### [facility] [address] [place], [address] Bilirubin [Mass/Vol] 0.48 mg/dL Normal 0.00-1.30 [facility] Comment on above: Order Comment: Order Date: 07/17/25 Order Info: [id number] - CMP Order Info: [id number] - LIPID Performed By: #### L 100.0100, L500.4100, L500.4050 #### [facility] [address] [place], [address] BUN/CRE 22.9 RATIO High 10-20 [facility] Comment on above: Order Comment: Order Date: 07/17/25 Order Info: [id number] - CMP Order Info: [id number] - LIPID Performed By: #### L 100.0100, L500.4100, [id number] #### [facility] [address] [place], [address] Calcium [Mass/Vol] 9.5 mg/dL Normal 7.6-11.0 [facility] Comment on above: Order Comment: Order Date: 07/17/25 Order Info: 07-1 - CMP Order Info: [id number] - LIPID Performed By: #### L 100.0100, L500.4100, L500.4050 #### [facility] [address] [place], [address] Chloride [Moles/Vol] 104 mmol/L Normal 98-108 [facility] Comment on above: Order Comment: Order Date: 07/17/25 Order Info: 07- - CMP Order Info: [id number] - LIPID Performed By: #### L 100.0100, L500.4100, L500.4050 #### [facility] [address] [place], [address] CO2 [Moles/Vol] 23.7 mmol/L Normal 21.0-32.0 [facility] Comment on above: Order Comment: Order Date: 07/17/25 Order Info: 0786 - CMP Order Info: [id number] - LIPID Performed By: #### L 100.0100, L500.4100, L500.4050 #### [facility] [address] [place], [address] Creatinine [Mass/Vol] 0.77 mg/dL Normal 0.70-1.20 [facility] Comment on above: Order Comment: Order Date: 07/17/25 Order Info: [id number] - CMP Order Info: [id number] - LIPID Performed By: #### L 100.0100, L500.4100, L500.4050 #### [facility] [address] [place], [address] GAP 12 Normal 5-15 [facility] Comment on above: Order Comment: Order Date: 07/17/25 Order Info: 0786- - CMP Order Info: [id number] - LIPID Performed By: #### L 100.0100, L500.4100, L500.4050 #### [facility] [address] [place], [address] GFR/1.73 sq M.predicted among non-blacks MDRD (S/P/Bld) [Vol rate/Area] 92 mL/min/{1.73_m2} Normal >60 [facility] Comment on above: Order Comment: Order Date: 07/17/25 Order Info: 0786 - CMP Order Info: [id number] - LIPID Result Comment: mL/m in/1.73m2 CKD-EPI Creatinine Equation (2020) Performed By: #### L 100.0100, L500.4100, L500.4050 #### [facility] [address] [place], [address] Globulin (S) [Mass/Vol] 3.0 g/dL Normal 2.2-4.2 [facility] Comment on above: Order Comment: Order Date: 07/17/25 Order Info: [id number] - CMP Order Info: [id number] - LIPID Performed By: #### L 100.0100, L500.4100, L500.4050 #### [facility] [address] [place], [address] Glucose [Mass/Vol] 98 mg/dL Normal 70-99 [facility] Comment on above: Order Comment: Order Date: 07/17/25 Order Info: 0786- - CMP Order Info: [id number] - LIPID Performed By: #### L 100.0100, L500.4100, L500.4050 #### [facility] [address] [place], [address] Potassium [Moles/Vol] 3.8 mmol/L Normal 3.3-5.1 [facility] Comment on above: Order Comment: Order Date: 07/17/25 Order Info: [id number] - CMP Order Info: [id number] - LIPID Performed By: #### L 100.0100, L500.4100, L500.4050 #### [facility] [address] [place], [address] Sodium [Moles/Vol] 140 mmol/L Normal 133-145 [facility] Comment on above: Order Comment: Order Date: 07/17/25 Order Info: 0786- - CMP Order Info: [id number] - LIPID Performed By: #### L 100.0100, L500.4100, L500.4050 #### [facility] [address] [place], [address] T PROT 7.4 g/dL Normal 5.9-8.4 [facility] Comment on above: Order Comment: Order Date: 07/17/25 Order Info: 0786- - CMP Order Info: [id number] - LIPID Performed By: #### L 100.0100, L500.4100, L500.4050 #### [facility] [address] [place], [address] Urea nitrogen [Mass/Vol] 18 mg/dL Normal 4-19 [facility] Comment on above: Order Comment: Order Date: 07/17/25 Order Info: [id number] - CMP Order Info: [id number] - LIPID Performed By: #### L 100.0100, L500.4100, L500.4050 #### [facility] [address] [place], [address] Eosinophil percentageOrdered By: Jesse Hu on 07-17-2025 Eosinophils/100 WBC (Bld) 1.2 % 0-5 [facility] Erythrocyte distribution wid th ratioOrdered By: Jesse Hu on 07-17-2025 Erythrocyte distribution width (RBC) [Ratio] 13.1 % 11.6-14.6 [facility] Erythrocyte distribution wid th standard deviationOrdered By: Jesse Hu on 07-17-2025 Erythrocyte distribution width (RBC) [Ratio] 43.7 fl 35.1-43.9 [facility] Glomerular filtration rate ( GFR) estimation/1.73 sq m using serum, plasma, or whole bOrdered By: Jesse Hu on 07-17-2025 GFR/1.73 sq M.predicted among non-blacks MDRD (S/P/Bld) [Vol rate/Area] 92 mL/min/{1.73_m2} >60 [facility] Comment on above: mL/min/1.73m2 CKD-EP I Creatinine Equation (2020) Hematocrit Auto (Bld) [Volum e fraction]Ordered By: Jesse Hu on 07-17-2025 Hematocrit (Bld) [Volume fraction] 43.0 % 37-47 [facility] Hemoglobin measurementOrdere d By: Jesse Hu on 07-17-2025 Hemoglobin (Bld) [Mass/Vol] 14.2 g/dL 12.0-15.0 [facility] Immature granulocytes/100 WB C Auto (Bld)Ordered By: Jesse Hu on 07-17-2025 Immature granulocytes/100 WBC (Bld) 0.200 % 0.0-0.9 [facility] Comment on above: IG% - Immature Granu locytes (promyelocytes, myelocytes and metamyelocytes) > 1% indicates that a LEFT SHIFT is Present. LDL calc ser/plasOrdered By: Jesse Hu on 07-17-2025 Cholesterol in LDL [Mass/Vol] 77 mg/dL [facility] Comment on above: Yptcysqizv=334-284 m g/dL & Higher Guub=282 mg/dL or greaterFriedwald Equation for LDL-C Laboratory - Chemistry and C hemistry - challengeOrdered By: Jesse Hu on 07-17-2025 AST [Catalytic activity/Vol] 26 U/L <32 [facility] Lipid Profileon 07-17-2025 CHOL:HDL 3.47 Normal [facility] Comment on above: Order Comment: Order Date: 07/17/25 Order Info: 0786-1 - CMP Order Info: [id number] - LIPID Performed By: #### L 100.0100, L500.4100, L500.4050 #### [facility] [address] [place], [address] Cholesterol [Mass/Vol] 173 mg/dL Normal <=200 [facility] Comment on above: Order Comment: Order Date: 07/17/25 Order Info: 0786-1 - CMP Order Info: [id number] - LIPID Result Comment: Chol esterol level, Desirable <200 mg/dL Borderline high cholesterol 200-239 mg/dL High cholesterol >=240 mg/dL Recommendations of the NCEP Adult Treatment Panel for the following risk-cutoff thresholds for the [place] population. Performed By: #### L 100.0100, L500.4100, L500.4050 #### [facility] [address] [place], [address] Cholesterol in HDL [Mass/Vol] 50 mg/dL Normal [facility] Comment on above: Order Comment: Order Date: 07/17/25 Order Info: 0786-1 - [facility] Order Info: [id number] - LIPID Result Comment: Adriana onal Cholesterol Education Program (NCEP) guidelines: <40 mg/dL: Low HDL-cholesterol (major risk factor for CHD) >= 60 mg/dL: High HDL-cholesterol (negative risk factor for CHD) HDL-cholesterol is affected by a number of factors, e.g. smoking, exercise, hormones, sex and age. Performed By: #### L 100.0100, L500.4100, L500.4050 #### [facility] [address] [place], [address] Cholesterol in LDL [Mass/Vol] 77 mg/dL Normal [facility] Comment on above: Order Comment: Order Date: 07/17/25 Order Info: 0786-1 - CMP Order Info: [id number] - LIPID Result Comment: Bord yfqkpy=155-699 mg/dL Higher Iwes=673 mg/dL or greater Friedwald Equation for LDL-C Performed By: #### L 100.0100, L500.4100, L500.4050 #### [facility] [address] [place], [address] Cholesterol in VLDL [Mass/Vol] 46 mg/dL High 5-40 [facility] Comment on above: Order Comment: Order Date: 07/17/25 Order Info: 0786-1 - CMP Order Info: [id number] - LIPID Performed By: #### L 100.0100, L500.4100, L500.4050 #### [facility] [address] [place], [address] Triglyceride [Mass/Vol] 231 mg/dL High [facility] Comment on above: Order Comment: Order Date: 07/17/25 Order Info: 0786-1 - CMP Order Info: [id number] - LIPID Result Comment: The drugs N-Acetylcysteine and Metamizole may falsely depress this assay. Normal range: <150 mg/dL Borderline High: 150-199 mg/dL High: 200-499 mg/dL Very High: >500 mg/dL Performed By: #### L 100.0100, L500.4100, L500.4050 #### [facility] [address] [place], [address] MCV (mean corpuscular volume ) determinationOrdered By: Jesse Hu on 07-17-2025 MCV (RBC) [Entitic vol] 91.7 fL 81-99 [facility] Mean corpuscular hemoglobin (MCH) determinationOrdered By: Jesse Hu on 07-17-2025 MCH (RBC) [Entitic mass] 30.3 pg 27.0-32.0 [facility] Mean corpuscular hemoglobin concentration (MCHC) determinationOrdered By: Jesse Hu on 07-17-2025 MCHC (RBC) [Mass/Vol] 33.0 g/dL 32-36 [facility] Mean platelet volume determi nationOrdered By: Jesse Hu on 07-17-2025 Platelet mean volume (Bld) [Entitic vol] 10.3 fL 6.2-12.0 [facility] Monocyte percentageOrdered B y: Jesse Hu on 07-17-2025 Monocytes/100 WBC (Bld) 10.0 % 0-10 [facility] Neutrophil percentageOrdered By: Jesse Hu on 07-17-2025 Neutrophils/100 WBC (Bld) 57.8 % 47-70 [facility] Nucleated red blood cell per centageOrdered By: Jesse Hu on 07-17-2025 Nucleated RBC/100 WBC (Bld) [Ratio] 0 % 0-5 [facility] Platelet countOrdered By: Roma Hu on 07-17-2025 Platelets (Bld) [#/Vol] 322 10*3/uL 150-450 [facility] Potassium measurement (mass/ volume)Ordered By: Jesse Hu on 07-17-2025 Potassium (Unsp spec) [Mass/Vol] 3.8 mmol/L 3.3-5.1 [facility] RBC Auto (Bld) [#/Vol]Ordere d By: Jesse Hu on 07-17-2025 RBC (Bld) [#/Vol] 4.69 10*6/uL 4.2-5.4 [facility] Screening total cholesterol/ high density lipoprotein (HDL) cholesterol ratioOrdered By: Jesse Hu on 07-17-2025 Cholesterol.total/Celeste sterol in HDL [Mass ratio] 3.47 {ratio} [facility] Serum creatinine measurement (mass/volume)Ordered By: Jesse Hu on 07-17-2025 Creatinine [Mass/Vol] 0.77 mg/dL 0.70-1.20 [facility] Serum globulin measurementOr dered By: Jesse Hu on 07-17-2025 Globulin (S) [Mass/Vol] 3.0 g/dL 2.2-4.2 [facility] Serum glucose measurement (m ass/volume)Ordered By: Jesse Hu on 07-17-2025 Glucose [Mass/Vol] 98 mg/dL 70-99 [facility] Serum or plasma alanine tinsley otransferase (ALT) measurementOrdered By: Jesse Hu on 07-17-2025 ALT [Catalytic activity/Vol] 23 U/L <35 [facility] Serum or plasma albumin tim urement (mass/volume)Ordered By: Jesse Hu on 07-17-2025 Albumin [Mass/Vol] 4.5 g/dL 3.5-5.0 [facility] Serum or plasma albumin/glob ulin mass ratioOrdered By: Jesse Hu on 07-17-2025 Albumin/Globulin [Mass ratio] 1.5 {ratio} 0.9-2.4 [facility] Serum or plasma alkaline zhane sphatase measurementOrdered By: Jesse Hu on 07-17-2025 ALP [Catalytic activity/Vol] 82 U/L 35-104 [facility] Serum or plasma calcium tim urement (mass/volume)Ordered By: Jesse Hu on 07-17-2025 Calcium [Mass/Vol] 9.5 mg/dL 7.6-11.0 [facility] Serum or plasma cholesterol in HDL measurement (mass/volume)Ordered By: Jesse Hu on 07-17-2025 Cholesterol in HDL [Mass/Vol] 50 mg/dL >40 [facility] Comment on above: National Cholesterol Education Program (NCEP) guidelines:<40 mg/dL: Low HDL-cholesterol (major risk factor for CHD)>= 60 mg/dL: High HDL-cholesterol (negative risk factor for CHD)HDL-cholesterol is affected by a number of factors, e.g. smoking, exercise, hormones, sex and age. Serum or plasma cholesterol measurement (mass/volume)Ordered By: Jesse Hu on 07-17-2025 Cholesterol [Mass/Vol] 173 mg/dL <201 [facility] Comment on above: Cholesterol level, D esirable <200 mg/dLBorderline high cholesterol 200-239 mg/dLHigh cholesterol >=240 mg/dLRecommendations of the NCEP Adult Treatment Panel for the following risk-cutoff thresholds for the [place] population. Serum or plasma urea nitroge n measurement (mass/volume)Ordered By: Jesse Hu on 07-17-2025 Urea nitrogen [Mass/Vol] 18 mg/dL 4-19 [facility] Sodium levelOrdered By: Jesse Hu on 07-17-2025 Sodium [Moles/Vol] 140 mmol/L 133-145 [facility] Total proteinOrdered By: Tuan Hu on 07-17-2025 Protein [Mass/Vol] 7.4 g/dL 5.9-8.4 [facility] Triglycerides measurementOrd ered By: Jesse Hu on 07-17-2025 Triglyceride [Mass/Vol] 231 mg/dL High <199 [facility] Comment on above: The drugs N-Acetylcy steine and Metamizole may falsely depress this assay. Normal range: <150 mg/dLBorderline High: 150-199 mg/dLHigh: 200-499 mg/dLVery High: >500 mg/dL White blood cell (WBC) count Ordered By: Jesse Hu on 07-17-2025 WBC (Bld) [#/Vol] 6.0 10*3/uL 4.4-11.0 [facility] Director Digital Strategy Office Visit Reporton 05-03-2025 Director Digital Strategy Office Visit Report [facility] [address], [address] [place] [address] OFFICE VISIT Date of Service: 05/03/25 MR#: [id number] Acct: [id number] Name: VIVIANE CARTER [employer] Rep #: [id number] : 1970 Provider: Dr. 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 Required: No Is patient in pain?: No Allergies latex Allergy (Verified 05/03/25 13:32) Rash Medications ???Medication ???Instructions ???Recorded ???Confirmed ???Type biotin 1 mg capsule 1 mg PO DAILY 02/23/19 05/03/25 Hi story rosuvastatin 40 mg tablet (Crestor) 40 mg PO DAILY 09/13/22 5 History ashwagandha extract 500 mg capsule mg .Route 03/05/24 05/03/25 Hist ory lactobacillus combination no.9 4 4,000 mmu cells PO QDAY 02/06/25 0 05/03/25 History billion cell capsule (Adult 50 Plus Probiotic) prednisolone acetate 1 % eye 1 drp ophthalmic (eye) BID 5 05/03/25 History drops,suspension schisandra extract powder PO .weekly 02/06/25 05/03/25 Histo ry turmeric 400 mg capsule mg PO DAILY 02/06/25 05/03/25 Hist ory calcium 600 mg (as cap PO DAILY 02/20/25 05/03/25 His tory carbonate)-vitamin D3 12.5 mcg (500 unit) capsule magnesium 200 mg tablet 400 mg PO DAILY 02/20/25 05/03/25 History pantoprazole 40 mg tablet,delayed 40 mg PO QAM 02/20/25 05/03/25 Hi story release estradiol 0.01% (0.1 mg/gram) 1 g vaginal 2XW #42.5 grams 05/03/25 Rx vaginal cream topiramate 25 mg tablet (Topamax) 25 mg PO QDAY #30 tabs 05/03/25 0 05/03/25 Rx Post menopausal: No Patient : No : No PFSH Medical History Recurrent iritis of left eye Endometriosis Wears contact lenses Alcohol use Hx of psoriatic arthritis Arthritis Low iron High cholesterol History of IBS Gastric reflux Former smoker Cardiology follow-up encounter History of stress test History of irregular heartbeat Hx LEEP (loop electrosurgical excision procedure), cervix, Hemorrhoids GERD (gastroesophageal reflux disease) delivery delivered Surgical History S/P LEEP History of root canal procedure History of colonoscopy Hx of endoscopy History of D C History of bunionectomy Family History Mother No problems noted. Father Myocardial infarction Aunt Brain cancer Lung cancer Grandmother Mouth cancer Social History (Updated 05/03/25 @ 13:39 by Alicia Abdi) Smoking Status: Former smoker alcohol intake: current details: social substance use type: does not use caffeine: Yes what type of physical activity do you participate in: walking, aerobics and weight training frequency: 3-4 times per week seatbelt use: always do you feel safe at home: Yes additional social history: Suraj History 1 Elective abortions Hx Para 1 Spontaneous abortions Hx # Term Pregnancies Ectopic pregnancies Hx # Pregnancies Multiple births # of living children HPI Encounter for routine gynecological examination Details: VIVIANE CARTER is a 53 year old who presents for annual exam. She is interested in weight management. Last PAP: 2021 History of abnormal PAP: yes, over 10 years ago had leep, all normal paps since then Last mammogram: 2022 History of abnormal mammogram: no Colon cancer screening: Other preventative health care screenings: followed by pcp thinks is in menopause- no menses x 13 months. had a D C with Sonia Solis that was normal in 2021 Female Reproductive History Questions: metorrhagia: No, sexually active: Yes, dyspareunia: No and PCB: No Menopausal Symptoms: Yes hot flashes, Yes night sweats, Yes weight change, No mood changes, No difficulty concentrating, No sleep problems and No change in libido Menopausal Treatment: Yes OTC treatments ROS Const Constitutional: Reports as per HPI and night sweats; Denies fatigue, increased appetite, poor appetite, weight gain or weight loss Cardio Card: Denies chest pain Resp Resp: Denies cough or dyspnea GI GI: Reports as per HPI; Denies abdominal pain, bloating, constipation, nausea or vomiting : Reports as per HPI, hot flashes and other; Denies difficulty voiding, dysuria, hematuria, nipple discharge, pelvic pain, prolapse symptoms, urinary frequency, urinary incontinence, urinary urgency, vaginal discharge, vaginal dryness, vaginal odor or vaginal pruritus (more content not included)... Normal [facility] Breast imaging reportOrdered By: Marah Hernandez on 04-17-2025 Study report [facility] Imaging Services [address] [place] [address] SCRN MAMM (CAD)W/HAMLET BILAT MR#: [id number] Acct: [id number] Name: VIVIANE CARTER Rep #: [id number] : 1970 F 54 From: Erik Medel MD PCP: Dr. Jesse Hu MD Status: RE G CLI Study:SCRN MAMM (CAD)W/HAMLET BILAT Date of Exa m: 04/16/25 Exam# [id number] Ordering Dr: Kaci Healy DO ADDENDUM by Dr. Marah Meedl MD on 04/17/25 at 2227 Prior breast exams are now available for comparison. There is no change in the impression and recommendation. BIRADS 1 - NEGATIVE RECOMMENDATION: Routine annual follow-up in 1 Year Reading Location: [id number] 04/17/252226 Date cc: Dr. Kaci Lange DO; Dr. Jesse Hu MD ~* Signed EXAM: SCRN MAMM (CAD)W/HAMLET BILAT DATE: 04/16/2025 CLINICAL HISTORY: F, Age 54 y/o , SCREENING BREAST CANCER RISK ASSESSMENT: Not reported TECHNIQUE: Bilateral screening digital breast tomosynthesis with 2D and 3D images. Computeraided detection. COMPARISON: None FINDINGS: TISSUE DENSITY: The breast tissue is heterogenously dense, which may obscure small masses. Bilateral Breast Mammographic Findings: No suspicious masses, calcifications or other abnormalities are identified. BI/SCRN MAMM (CAD)W/HAMLET BILAT IMPRESSION: OVERALL FINAL ASSESSMENT: BIRADS 1 NEGATIVE RECOMMENDATION: Routine annual follow-up in 1 Year A letter with findings and recommendations will be mailed to the patient. Reading Location: [facility] CC: Dr. Kaci Lange DO; Dr. Jesse Hu MD ~ Rn Diabetes: Signed [facility] SCRN MAMM (CAD)W/HAMLET BILATo n 04-16-2025 SCRN MAMM (CAD)W/HAMLET BILAT [facility] Imaging Services [address] [place] [id number] SCRN MAMM (CAD)W/HAMLET BILAT MR#: [id number] Acct: [id number] Name: VIVIANE CARTER Rep #: [id number] : 1970 F 54 From: Marah Meza i, MD PCP: Dr. Jesse Hu MD Status: [facility] Study: SCRN MAMM (CAD)W/HAMLET BILAT Date of Exam: 03/22 06/14 Exam# [id number] Ordering Dr: Kaci Lange DO ADDENDUM by Dr. Marah Medel MD on 04/17/25 at 2227 Prior breast exams are now available for comparison. There is no change in the impression and recommendation. BIRADS 1 - NEGATIVE RECOMMENDATION: Routine annual follow-up in 1 Year Reading Location: [facility] 04/17/252226 Date cc: Dr. Kaci Lange DO; Dr. Jesse Hu MD * Signed EXAM: SCRN MAMM (CAD)W/HAMLET BILAT DATE: 04/16/2025 CLINICAL HISTORY: F, Age 54 y/o , SCREENING BREAST CANCER RISK ASSESSMENT: Not reported TECHNIQUE: Bilateral screening digital breast tomosynthesis with 2D and 3D images. Computer aided detection. COMPARISON: None FINDINGS: TISSUE DENSITY: The breast tissue is heterogenously dense, which may obscure small masses. Bilateral Breast Mammographic Findings: No suspicious masses, calcifications or other abnormalities are identified. BI/SCRN MAMM (CAD)W/HAMLET BILAT IMPRESSION: OVERALL FINAL ASSESSMENT: BIRADS 1 NEGATIVE RECOMMENDATION: Routine annual follow-up in 1 Year A letter with findings and recommendations will be mailed to the patient. Reading Location: [facility] CC: Dr. Kaci Lange DO; Dr. Jesse Hu MD Rn Diabetes: Signed Normal [facility] Echo Completeon 03-18-2025 Echo Complete [facility] Services [address] [place] [address] Echo Complete 03/18/25 0758 MR#: [id number] Acct: [id number] Name: EMMAVIVIANE L Rep #: [id number] : 1970 54 From: Vahid Minor MD Attending Dr: Dr. Taiwo Adkins MD Status: RE G CLI Ordering Dr: Taiwo Adkins MD Date: 03/18/25 Location: [facility] Sex: F C Admitted: Reason For Study Reason For Study: Palpitations Procedure This was a 2D Doppler, Color Flow transthoracic echocardiogram. Exam performed in department. Left Ventricle Normal LV size. Left ventricular systolic function is normal. The left ventricular ejection fraction is 65 %. No regional wall motion abnormalities noted. Right Ventricle Normal RV size. Normal systolic function. Atria Normal left atrium. Normal right atrium. Mitral Valve Normal mitral valve. Tricuspid Valve Normal tricuspid valve. Aortic Valve Trisinus/trileaflet aortic valve. Pulmonic Valve Normal pulmonic valve. Great Vessels Normal aortic root. The pulmonary artery is normal size. Normal inferior vena cava. Pericardium/Pleural No pericardial effusion. MMode/2D Measurements Calculations LVIDd: 4.2 cm IVSd: 1.0 cm Ao root diam: 3.5 cm LVIDs: 2.5 cm LVPWd: 0.96 cm RVDd: 3.0 cm FS: 40.3 % LAV(MOD-bp): 41.4 ml LVAd ap4: 24.3 cm2 LVAd ap2: 24.0 cm2 LAV(MOD-bp) Indexed: 23.5 ml/m2 LVLd ap4: 7.6 cm LVLd ap2: 7.3 cm LAV(MOD-sp2): 42.3 ml EDV(MOD-sp4): 65.8 ml EDV(MOD-sp2): 65.9 ml LAV(MOD-sp4): 38.4 ml EDV(sp4-el): 66.3 ml EDV(sp2-el): 67.3 ml LVAs ap4: 11.7 cm2 LVAs ap2: 13.1 cm2 LVLs ap4: 6.4 cm LVLs ap2: 6.5 cm ESV(MOD-sp4): 18.5 ml ESV(MOD-sp2): 23.4 ml ESV(sp4-el): 18.1 ml ESV(sp2-el): 22.5 ml EF(MOD-sp4): 71.9 % EF(MOD-sp2): 64.5 % EF(sp4-el): 72.7 % SV(MOD-sp4): 47.4 ml SV(MOD-sp2): 42.5 ml SV(sp4-el): 48.2 ml SI(MOD-sp4): 26.9 ml/m2 SI(MOD-sp2): 24.1 ml/m2 LA A4 area: 15.7 cm2 LA dimension(2D): 3.8 cm RA A4 area: 11.0 cm2 TAPSE: 2.1 cm Time Measurements MV dec time: 0.24 sec Doppler Measurements Calculations MV E max joshua: 65.4 cm/sec Lat Peak E' Joshua: 12.8 cm/sec Med Peak E' Joshua: 7.0 cm/sec MV A max joshua: 70.7 cm/sec E/E' lat: 5.1 E/E' med: 9.3 MV E/A: 0.92 Ao V2 max: 144.7 cm/sec LV V1 max: 107.9 cm/sec MV dec slope: 275.2 cm/sec2 Ao max P.4 mmHg LV V1 max P.7 mmHg Ao V2 mean: 99.6 cm/sec LV V1 mean P.6 mmHg Ao mean P.4 mmHg LV V1 mean: 77.3 cm/sec Ao V2 VTI: 28.7 cm LV V1 VTI: 25.4 cm AV (velocity ratio): 0.88 PA V2 max: 95.2 cm/sec TR max joshua: 254.9 cm/sec TR max P.0 mmHg ECHO/Echo Complete Interpretation Summary Normal LV size. Left ventricular systolic function is normal. The left ventricular ejection fraction is 65 %. Structurally normal valves. Ordering Physician: Taiwo Adkins Referring Physician: Jesse Hu Performed By: Lacey Edwards, [facility] 03/19/25752 Date Vahid Minor MD CC: Dr. Jesse Hu MD; Dr. Taiwo Adkins MD Date Dictated: 03/18/25757 Date Transcribed: 03/19/25752 Rn Diabetes: Signed Normal [facility] 12 Lead EKG performed by [facility] on 02-20-2025 12 Lead EKG performed by [facility] [address] [place] [address] 12 Lead EKG performed by [facility] 02/20/25 1344 MR#: [id number] Acct: [id number] Name: VIVIANE CARTER Rep #: [id number] : 1970 54 From: Taiwo Adkins MD Attending Dr: Dr. Taiwo Adkins MD Status: DE P AMB Ordering Dr: Taiwo Adkins MD Date: 02/20/25 Location: [facility] Sex: F C Admitted: [facility]/12 Lead EKG performed by [facility] ECG Report Interpretation ---Sinus Rhythm WITHIN NORMAL LIMITSElectronically signed on 02/20/2025 at 15:[address] Taiwo Adkins [place] [employer] Version 8610 02/20/25 1537 Date Taiwo Adkins MD CC: Dr. Jesse Hu MD Date Dictated: 02/20/25 134 Date Transcribed: 02/20/251343 Rn Diabetes: Signed Normal [facility] Cardiology Visit Reporton Cardiology Visit Report [facility] [address] [place] [address] OFFICE VISIT Date of Service: 02/20/25 MR#: [id number] Acct: [id number] Name: VIVIANE CARTER Rep #: [id number] : 1970 Provider: Dr. Taiwo perkins MD Age/Sex: 54/F Location: [facility] [place] Status: Signed HPI HPI History of Present Illness Details: Patient is a pleasant 54-year-old white female that comes in today for new patient visit. The patient carries a history of several years of palpitations dating back into her early 20s. She reports that over the last year they have been increasing in frequency and have occasionally been associated with some dizziness. She has also had some symptoms that sound consistent with irritable bowel syndrome recently. The patient is struggling with an issue with at work where she is worked her entire career and is looking to potentially make a change. She also is going through menopause. The patient does note that on the weekends these palpitations seem to be more prominent and she does partake of alcohol on the weekend. She denies any jeet syncope or near syncope denies any chest pains. EKG done in office today shows normal sinus rhythm at 82 bpm and is within normal limits. The patient does not remember having having an echocardiogram she does remember wearing a Holter many years ago she believes through [facility]. She does not remember any significant findings on that Holter monitor. Currently the patient does intermittently exercise. She reports that when she is working out she can feel the palpitations usually not at the beginning but after she has been working out for a period of time. 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 The patient denies any jeet syncope or near syncope but has had some dizzy spells she reports these palpitations scare her more than anything. 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) Nuclear Medicine Tech Required: No Accompanied by: Self Is patient in pain?: No Allergies latex Allergy (Verified 02/20/25 14:32) Rash Medications ???Medication ???Instructions ???Recorded ???Confirmed ???Type biotin 1 mg capsule 1 mg PO DAILY 02/23/19 02/20/25 Hi story rosuvastatin 40 mg tablet (Crestor) 40 mg PO DAILY 09/13/22 5 History ashwagandha extract 500 mg capsule mg .Route 03/05/24 02/20/25 Hist ory lactobacillus combination no.9 4 4,000 mmu cells PO QDAY 02/06/25 0 02/20/25 History billion cell capsule (Adult 50 Plus Probiotic) prednisolone acetate 1 % eye 1 drp ophthalmic (eye) BID 5 History drops,suspension schisandra extract powder PO .weekly 02/06/25 02/20/25 Histo ry turmeric 400 mg capsule mg PO DAILY 02/06/25 02/20/25 Hist ory calcium 600 mg (as cap PO DAILY 02/20/25 02/20/25 His tory carbonate)-vitamin D3 12.5 mcg (500 unit) capsule magnesium 200 mg tablet 400 mg PO DAILY 02/20/25 02/20/25 History pantoprazole 40 mg tablet,delayed 40 mg PO QAM 02/20/25 02/20/25 Hi story release Have you fallen in the past year?: No PFSH Medical History Recurrent iritis of left eye Endometriosis Wears contact lenses Alcohol use Hx of psoriatic arthritis Arthritis Low iron High cholesterol History of IBS Gastric reflux Former smoker Cardiology follow-up encounter History of stress test History of irregular heartbeat Hx LEEP (loop electrosurgical excision procedure), cervix, Hemorrhoids GERD (gastroesophageal reflux disease) delivery delivered Surgical History S/P LEEP History of root canal procedure History of colonoscopy Hx of endoscopy History of D C History of bunionectomy Family History Mother No problems noted. Father Myocardial infarction Aunt Brain cancer Lung cancer Grandmother Mouth cancer Social History Smoking Status: Former smoker alcohol intake: current details: social substance use type: does not use caffeine: Yes frequency: 3-4 times per week seatbelt use: always do you feel safe at home: Yes additional social history: Suraj CHRISTIANSON Const Const: Negative for (more content not included)... Normal [facility] Hemoglobin A1con 01-16-2025 HbA1c (Bld) [Mass fraction] 5.6 % Low <=5.6 [facility] Comment on above: Order Comment: Order Date: 05/03/24 Order Info: [id number] - A1C Performed By: #### L [id number] #### [facility] [address] [place], [address] Hemoglobin A1c percentageOrd ered By: Jesse Hu on 01-15-2025 HbA1c (Bld) [Mass fraction] 5.6 % Low >5.7 [facility] Absolute lymphocyte countOrd ered By: Jesse Hu on 10-19-2023 Lymphocytes Auto (Unsp spec) [#/Vol] 2.14 10*3/uL 0.83-4.51 [facility] Basophil percentageOrdered B y: Jesse Hu on 10-19-2023 Basophils/100 WBC (Bld) 0.6 % 0-1 [facility] Bilirubin [Mass/Vol] 0.60 mg/dL 0.20-1.00 [facility] Comment on above: For patients on eltr ombopag therapy, use of Dimension [place] TBIL is not recommended. Chloride [Moles/Vol] 106 mmol/L 98-107 [facility] Cholesterol [Mass/Vol] 149 mg/dL <200 [facility] Comment on above: <200 mg/dL Desirable 200-240 mg/dL Borderline >240 mg/dL High Risk Eosinophils/100 WBC (Bld) 1.4 % 0-5 [facility] Glucose [Mass/Vol] 88 mg/dL 74-106 [facility] Neutrophils (Bld) [#/Vol] 3.5 10*3/uL 2.0-7.7 [facility] Neutrophils/100 WBC (Bld) 53.9 % 47-70 [facility] Potassium [Moles/Vol] 3.9 mmol/L 3.5-5.1 [facility] Protein [Mass/Vol] 7.8 g/dL 6.4-8.2 [facility] Sodium [Moles/Vol] 139 mmol/L 136-145 [facility] Triglyceride [Mass/Vol] 198 mg/dL <199 [facility] Comment on above: The drugs N-Acetylcy steine and Metamizole may falsely depress this assay.Serum Triglycerides Reference Interval Normal <150 mg/dL Borderline high 150 - 199 mg/dL High 200 - 499 mg/dL Very High > or = 500 mg/dL WBC (Bld) [#/Vol] 6.5 10*3/uL 4.4-11.0 [facility] Blood erythrocytes count (nu mber/volume)Ordered By: Jesse Hu on 10-19-2023 RBC (Bld) [#/Vol] 4.78 10*6/uL 4.2-5.4 [facility] Blood hemoglobin measurement (mass/volume)Ordered By: Jesse Hu on 10-19-2023 Hemoglobin (Bld) [Mass/Vol] 14.3 g/dL 12.0-15.0 [facility] Blood lymphocytes/100 leukoc ytesOrdered By: Jesse Hu on 10-19-2023 Lymphocytes/100 WBC (Bld) 32.7 % 19-41 [facility] Blood monocytes/100 leukocyt esOrdered By: Jesse Hu on 10-19-2023 Monocytes/100 WBC (Bld) 11.2 % 0-10 [facility] Blood platelet mean volumeOr dered By: Jesse Hu on 10-19-2023 Platelet mean volume (Bld) [Entitic vol] 10.1 fL 6.2-12.0 [facility] Determination of erythrocyte mean corpuscular volume (MCV)Ordered By: Jesse Hu on 10-19-2023 MCV (RBC) [Entitic vol] 92.7 fL 81-99 [facility] Hematocrit Auto (Bld) [Volum e fraction]Ordered By: Jesse Hu on 10-19-2023 Hematocrit (Bld) [Volume fraction] 44.3 % 37-47 [facility] Laboratory - Chemistry and C hemistry - challengeOrdered By: Jesse Hu on 10-19-2023 ALP [Catalytic activity/Vol] 85 U/L 45-117 [facility] ALT [Catalytic activity/Vol] 27 U/L 13-56 [facility] CO2 [Moles/Vol] 26.0 mmol/L 21.0-32.0 [facility] Globulin (S) [Mass/Vol] 3.9 g/dL 2.2-4.2 [facility] Urea nitrogen/Creatinine [Mass ratio] 18.9 mg/mg 10-20 [facility] Laboratory - Hematology and Cell countsOrdered By: Jesse Hu on 10-19-2023 Erythrocyte distribution width (RBC) [Entitic vol] 43.9 fL 35.1-43.9 [facility] Erythrocyte distribution width (RBC) [Ratio] 12.9 % 11.6-14.6 [facility] Immature granulocytes/100 WBC (Bld) 0.200 % 0.0-0.9 [facility] Comment on above: IG% - Immature Granu locytes (promyelocytes, myelocytes and metamyelocytes) > 1% indicates that a LEFT SHIFT is Present. MCH (RBC) [Entitic mass] 29.9 pg 27.0-32.0 [facility] Nucleated RBC/100 WBC (Bld) [Ratio] 0 % 0-5 [facility] MCHC Auto (RBC) [Mass/Vol]Or dered By: Jesse Hu on 10-19-2023 MCHC (RBC) [Mass/Vol] 32.3 g/dL 32-36 [facility] No Panel InformationOrdered By: Jesse Hu on 10-19-2023 Estimated GFR (MDRD) Amer 97 mL/min >60 [facility] Comment on above: GFR Calc Estimated GFR (MDRD) Non-Af Amer 80 mL/min >60 [facility] Comment on above: Non- GFR Calc Platelets bldOrdered By: Tuan Hu on 10-19-2023 Platelets (Bld) [#/Vol] 319 10*3/uL 150-450 [facility] Serum or plasma albumin tim urement (mass/volume)Ordered By: Jesse Hu on 10-19-2023 Albumin [Mass/Vol] 3.9 g/dL 3.2-5.0 [facility] Serum or plasma albumin/glob ulin mass ratioOrdered By: Jesse Hu on 10-19-2023 Albumin/Globulin [Mass ratio] 1.0 {ratio} 0.9-2.4 [facility] Serum or plasma calcium tim urement (mass/volume)Ordered By: Jesse Hu on 10-19-2023 Calcium [Mass/Vol] 8.9 mg/dL 8.5-10.1 [facility] Serum or plasma cholesterol in HDL measurement (mass/volume)Ordered By: Jesse Hu on 10-19-2023 Cholesterol in HDL [Mass/Vol] 47 mg/dL >40 [facility] Comment on above: The drugs N-Acetylcy steine and Metamizole may falsely depress this assay. Reference Range HDL <40 mg/dL Low HDL Cholesterol HDL >or= 60 mg/dL High HDL Cholesterol Serum or plasma cholesterol in VLDL measurement (mass/volume)Ordered By: Jesse Hu on 10-19-2023 Cholesterol in VLDL [Mass/Vol] 40 mg/dL 5-40 [facility] Serum or plasma creatinine m easurement (mass/volume)Ordered By: Jesse Hu on 10-19-2023 Creatinine [Mass/Vol] 0.79 mg/dL 0.55-1.02 [facility] Comment on above: The validity of the calculated GFR & GFRAA in patients over 70 years has not been determined. Clinical correlation is essential. Serum or plasma low density lipoprotein (LDL) cholesterol measurement (mass/volume)Ordered By: Jesse Hu on 10-19-2023 Cholesterol in LDL [Mass/Vol] 62 mg/dL 0-130 [facility] Serum or plasma urea nitroge n measurement (mass/volume)Ordered By: Jesse Hu on 10-19-2023 Urea nitrogen [Mass/Vol] 15 mg/dL 7-18 [facility] Thin prep Papanicolaou smear with manual screeningOrdered By: Jesse Hu on 10-19-2023 Thin prep Papanicolaou smear with manual screening 20 U/L 15-37 [facility] Thin prep Papanicolaou smear with manual screening 7 5-15 [facility] Absolute lymphocyte counton 10-12-2022 Lymphocytes Auto (Unsp spec) [#/Vol] 2.02 10*3/uL 0.83-4.51 [facility] Work Phone: Basophil percentageon 2021 Basophils/100 WBC (Bld) 0.7 % 0-1 [facility] Work Phone: Bilirubin [Mass/Vol] 0.50 mg/dL 0.20-1.00 [facility] Work Phone: Comment on above: For patients on eltr ombopag therapy, use of Dimension [place] TBIL is not recommended. Chloride [Moles/Vol] 107 mmol/L 98-107 [facility] Work Phone: Cholesterol [Mass/Vol] 182 mg/dL <200 [facility] Work Phone: Comment on above: <200 mg/dL Desirable 200-240 mg/dL Borderline >240 mg/dL High Risk Eosinophils/100 WBC (Bld) 1.7 % 0-5 [facility] Work Phone: Glucose [Mass/Vol] 112 mg/dL 74-106 [facility] Work Phone: Comment on above: Fasting Glucose resu lt from 100 to 125 mg/dL suggests IMPAIRED HOMEOSTASIS per A.D.A. criteria. Neutrophils (Bld) [#/Vol] 4.1 10*3/uL 2.0-7.7 [facility] Work Phone: Neutrophils/100 WBC (Bld) 59.0 % 47-70 [facility] Work Phone: Potassium [Moles/Vol] 4.4 mmol/L 3.5-5.1 [facility] Work Phone: Protein [Mass/Vol] 7.3 g/dL 6.4-8.2 [facility] Work Phone: Sodium [Moles/Vol] 140 mmol/L 136-145 [facility] Work Phone: Triglyceride [Mass/Vol] 391 mg/dL <199 [facility] Work Phone: [phone] Comment on above: The drugs N-Acetylcy steine and Metamizole may falsely depress this assay.Serum Triglycerides Reference Interval Normal <150 mg/dL Borderline high 150 - 199 mg/dL High 200 - 499 mg/dL Very High > or = 500 mg/dL WBC (Bld) [#/Vol] 6.9 10*3/uL 4.4-11.0 [facility] Work Phone: Blood erythrocytes count (nu mber/volume)on 10-12-2022 RBC (Bld) [#/Vol] 4.66 10*6/uL 4.2-5.4 [facility] Work Phone: Blood hemoglobin measurement (mass/volume)on 10-12-2022 Hemoglobin (Bld) [Mass/Vol] 13.8 g/dL 12.0-15.0 [facility] Work Phone: Blood lymphocytes/100 leukoc yteson 10-12-2022 Lymphocytes/100 WBC (Bld) 29.4 % 19-41 [facility] Work Phone: Blood monocytes/100 leukocyt eson 10-12-2022 Monocytes/100 WBC (Bld) 8.9 % 0-10 [facility] Work Phone: [phone] Blood platelet mean volumeon 10-12-2022 Platelet mean volume (Bld) [Entitic vol] 10.1 fL 6.2-12.0 [facility] Work Phone: [phone] Determination of erythrocyte mean corpuscular volume (MCV)on 10-12-2022 MCV (RBC) [Entitic vol] 89.9 fL 81-99 [facility] Work Phone: [phone] Hematocrit Auto (Bld) [Volum e fraction]on 10-12-2022 Hematocrit (Bld) [Volume fraction] 41.9 % 37-47 [facility] Work Phone: Laboratory - Chemistry and C hemistry - challengeon 10-12-2022 ALP [Catalytic activity/Vol] 86 U/L 45-117 [facility] Work Phone: [phone] ALT [Catalytic activity/Vol] 34 U/L 13-56 [facility] Work Phone: [phone] CO2 [Moles/Vol] 27.0 mmol/L 21.0-32.0 [facility] Work Phone: [phone] Globulin (S) [Mass/Vol] 3.5 g/dL 2.2-4.2 [facility] Work Phone: [phone] Urea nitrogen/Creatinine [Mass ratio] 20.1 mg/mg 10-20 [facility] Work Phone: [phone] Laboratory - Hematology and Cell countson 10-12-2022 Erythrocyte distribution width (RBC) [Entitic vol] 44.5 fL 35.1-43.9 [facility] Work Phone: [phone] Erythrocyte distribution width (RBC) [Ratio] 13.5 % 11.6-14.6 [facility] Work Phone: [phone] Immature granulocytes/100 WBC (Bld) 0.300 % 0.0-0.9 [facility] Work Phone: [phone] Comment on above: IG% - Immature Granu locytes (promyelocytes, myelocytes and metamyelocytes) > 1% indicates that a LEFT SHIFT is Present. MCH (RBC) [Entitic mass] 29.6 pg 27.0-32.0 [facility] Work Phone: [phone] Nucleated RBC/100 WBC (Bld) [Ratio] 0 % 0-5 [facility] Work Phone: [phone] MCHC Auto (RBC) [Mass/Vol]on 10-12-2022 MCHC (RBC) [Mass/Vol] 32.9 g/dL 32-36 [facility] Work Phone: [phone] Panel Informationon 10-12 Estimated GFR (MDRD) Amer 114 mL/min >60 [facility] Work Phone: [phone] Comment on above: GFR Calc Estimated GFR (MDRD) Non-Af Amer 94 mL/min >60 [facility] Work Phone: Comment on above: Non- GFR Calc Platelets bldon 10-12-2022 Platelets (Bld) [#/Vol] 355 10*3/uL 150-450 [facility] Work Phone: Serum or plasma albumin tim urement (mass/volume)on 10-12-2022 Albumin [Mass/Vol] 3.8 g/dL 3.2-5.0 [facility] Work Phone: Serum or plasma albumin/glob ulin mass ratioon 10-12-2022 Albumin/Globulin [Mass ratio] 1.1 {ratio} 0.9-2.4 [facility] Work Phone: Serum or plasma calcium tim urement (mass/volume)on 10-12-2022 Calcium [Mass/Vol] 8.9 mg/dL 8.5-10.1 [facility] Work Phone: Serum or plasma cholesterol in HDL measurement (mass/volume)on 10-12-2022 Cholesterol in HDL [Mass/Vol] 44 mg/dL >40 [facility] Work Phone: Comment on above: The drugs N-Acetylcy steine and Metamizole may falsely depress this assay. Reference Range HDL <40 mg/dL Low HDL Cholesterol HDL >or= 60 mg/dL High HDL Cholesterol Serum or plasma cholesterol in VLDL measurement (mass/volume)on 10-12-2022 Cholesterol in VLDL [Mass/Vol] 78 mg/dL 5-40 [facility] Work Phone: Serum or plasma creatinine m easurement (mass/volume)on 10-12-2022 Creatinine [Mass/Vol] 0.70 mg/dL 0.55-1.02 [facility] Work Phone: Comment on above: The validity of the calculated GFR & GFRAA in patients over 70 years has not been determined. Clinical correlation is essential. Serum or plasma low density lipoprotein (LDL) cholesterol measurement (mass/volume)on 10-12-2022 Cholesterol in LDL [Mass/Vol] 60 mg/dL 0-130 [facility] Work Phone: Serum or plasma urea nitroge n measurement (mass/volume)on 10-12-2022 Urea nitrogen [Mass/Vol] 14 mg/dL 7-18 [facility] Work Phone: Thin prep Papanicolaou smear with manual screeningon 10-12-2022 Thin prep Papanicolaou smear with manual screening 23 U/L 15-37 [facility] Work Phone: [phone] Thin prep Papanicolaou smear with manual screening 6 5-15 [facility] Work Phone: Whole blood hemoglobin A1c/t otal hemoglobin ratio (mass fraction)on 10-12-2022 HbA1c (Bld) [Mass fraction] 5.5 % 3.8-5.6 [facility] Work Phone: Comment on above: Normal < 5.7 % Predi abetic 5.7 - 6.4 % Diabetic >or= 6.5 % Please note range changes. Laboratory - Chemistry and C hemistry - challengeon 09-17-2022 HCG ( test) Ql (U) Negative [facility] Work Phone: Comment on above: Very dilute urine sp ecimens, as indicated by a low specificgravity, may not contain airport representative levels of hCG. If is still suspected, a first morning urinespecimen should be collected 48 hours later and tested. Basophil percentageon 2021 Cholesterol [Mass/Vol] 260 mg/dL <200 [facility] Work Phone: Comment on above: <200 mg/dL Desirable 200-240 mg/dL Borderline >240 mg/dL High Risk Triglyceride [Mass/Vol] 147 mg/dL [facility] Work Phone: Comment on above: The drugs N-Acetylcy steine and Metamizole may falsely depress this assay.Serum Triglycerides Reference Interval Normal <150 mg/dL Borderline high 150 - 199 mg/dL High 200 - 499 mg/dL Very High > or = 500 mg/dL Serum or plasma cholesterol in HDL measurement (mass/volume)on 04-30-2022 Cholesterol in HDL [Mass/Vol] 53 mg/dL [facility] Work Phone: Comment on above: The drugs N-Acetylcy steine and Metamizole may falsely depress this assay. Reference Range HDL <40 mg/dL Low HDL Cholesterol HDL >or= 60 mg/dL High HDL Cholesterol Serum or plasma cholesterol in VLDL measurement (mass/volume)on 04-30-2022 Cholesterol in VLDL [Mass/Vol] 29 mg/dL 5-40 [facility] Work Phone: Serum or plasma low density lipoprotein (LDL) cholesterol measurement (mass/volume)on 04-30-2022 Cholesterol in LDL [Mass/Vol] 178 mg/dL 0-130 [facility] Work Phone: Cervical or vagninal specime n microscopic examination by cytology stain (reported ason 01-19-2022 Cytology report Cyto stain Doc (Cvx/Vag) Comment [facility] Work Phone: Comment on above: The Pap smear is a s creening test designed to aid in thedetection of premalignant and malignant conditions of theuterine cervix. It is not a diagnostic procedure andshould not be used as the sole means of detecting cervicalcancer. Both false-positive and false-negative reports dooccur. Detection in cervical specim en of any of human papilloma virus (HPV) 16, 18, 31, 33,on 01-19-2022 HPV 16+18+31+33+35+39+45+51 +52+56+58+59+66+68 DNA Probe+sig amp Ql (Cvx) Negative Negative [facility] Work Phone: Comment on above: This nucleic acid am plification test detects fourteen high-risk HPV types (16,18,31,33,35,39,45,51,52,56,58,59,66,68)without differentiation.Performed at: [address] [id number] Director: Briseida Long MD, Phone: [phone] at: =[address] [id number] Director: Briseida Long MD, Phone: [phone] Laboratory - Cytologyon 03-0 [facility] Cyto stain Nom (Cvx/Vag) [ID] Comment [facility] Work Phone: Comment on above: Ella Tripathi chnologist (ASCP) Laboratory - Miscellaneous t estson 01-19-2022 Service comment (Unsp spec) [Interp] Comment [facility] Work Phone: Comment on above: This liquid based Th inPrep(R) pap test was screened withthe use of an image guided system. Service comment (Unsp spec) [Interp] . [facility] Work Phone: No Panel Informationon 01-19 Pathology report final diagnosis Narrative Comment [facility] Work Phone: Comment on above: NEGATIVE FOR INTRAEP ITHELIAL LESION OR MALIGNANCY. Absolute lymphocyte counton 01-07-2022 Lymphocytes Auto (Unsp spec) [#/Vol] 1.72 10*3/uL 0.83-4.51 [facility] Work Phone: Basophil percentageon 2021 Basophils/100 WBC (Bld) 0.8 % 0-1 [facility] Work Phone: Bilirubin [Mass/Vol] 0.50 mg/dL 0.20-1.00 [facility] Work Phone: Comment on above: For patients on eltr ombopag therapy, use of Dimension [place] TBIL is not recommended. Chloride [Moles/Vol] 105 mmol/L 98-107 [facility] Work Phone: Cholesterol [Mass/Vol] 214 mg/dL <200 [facility] Work Phone: [phone] Comment on above: <200 mg/dL Desirable 200-240 mg/dL Borderline >240 mg/dL High Risk Eosinophils/100 WBC (Bld) 1.2 % 0-5 [facility] Work Phone: Glucose [Mass/Vol] 86 mg/dL 74-106 [facility] Work Phone: Neutrophils (Bld) [#/Vol] 2.6 10*3/uL 2.0-7.7 [facility] Work Phone: [phone] Neutrophils/100 WBC (Bld) 52.4 % 47-70 [facility] Work Phone: [phone] Potassium [Moles/Vol] 4.0 mmol/L 3.5-5.1 [facility] Work Phone: [phone] Protein [Mass/Vol] 7.7 g/dL 6.4-8.2 [facility] Work Phone: [phone] Sodium [Moles/Vol] 137 mmol/L 136-145 [facility] Work Phone: [phone] Triglyceride [Mass/Vol] 137 mg/dL [facility] Work Phone: [phone] Comment on above: The drugs N-Acetylcy steine and Metamizole may falsely depress this assay.Serum Triglycerides Reference Interval Normal <150 mg/dL Borderline high 150 - 199 mg/dL High 200 - 499 mg/dL Very High > or = 500 mg/dL WBC (Bld) [#/Vol] 4.9 10*3/uL 4.4-11.0 [facility] Work Phone: [phone] Blood erythrocytes count (nu mber/volume)on 01-07-2022 RBC (Bld) [#/Vol] 4.52 10*6/uL 4.2-5.4 [facility] Work Phone: [phone] Blood hemoglobin measurement (mass/volume)on 01-07-2022 Hemoglobin (Bld) [Mass/Vol] 12.5 g/dL 12.0-15.0 [facility] Work Phone: Blood lymphocytes/100 leukoc yteson 01-07-2022 Lymphocytes/100 WBC (Bld) 34.9 % 19-41 [facility] Work Phone: [phone] Blood monocytes/100 leukocyt eson 01-07-2022 Monocytes/100 WBC (Bld) 10.5 % 0-10 [facility] Work Phone: [phone] Blood platelet mean volumeon 01-07-2022 Platelet mean volume (Bld) [Entitic vol] 10.3 fL 6.2-12.0 [facility] Work Phone: [phone] Determination of erythrocyte mean corpuscular volume (MCV)on 01-07-2022 MCV (RBC) [Entitic vol] 88.9 fL 81-99 [facility] Work Phone: [phone] Hematocrit Auto (Bld) [Volum e fraction]on 01-07-2022 Hematocrit (Bld) [Volume fraction] 40.2 % 37-47 [facility] Work Phone: [phone] Laboratory - Chemistry and C hemistry - challengeon 01-07-2022 ALP [Catalytic activity/Vol] 81 U/L 45-117 [facility] Work Phone: [phone] ALT [Catalytic activity/Vol] 27 U/L 13-56 [facility] Work Phone: [phone] CO2 [Moles/Vol] 26.0 mmol/L 21.0-32.0 [facility] Work Phone: [phone] Globulin (S) [Mass/Vol] 3.7 g/dL 2.2-4.2 [facility] Work Phone: [phone] Urea nitrogen/Creatinine [Mass ratio] 15.5 mg/mg 10-20 [facility] Work Phone: [phone] Laboratory - Hematology and Cell countson 01-07-2022 Erythrocyte distribution width (RBC) [Entitic vol] 45.3 fL 35.1-43.9 [facility] Work Phone: [phone] Erythrocyte distribution width (RBC) [Ratio] 14.0 % 11.6-14.6 [facility] Work Phone: [phone] Immature granulocytes/100 WBC (Bld) 0.200 % 0.0-0.9 [facility] Work Phone: [phone] Comment on above: IG% - Immature Granu locytes (promyelocytes, myelocytes and metamyelocytes) > 1% indicates that a LEFT SHIFT is Present. MCH (RBC) [Entitic mass] 27.7 pg 27.0-32.0 [facility] Work Phone: Nucleated RBC/100 WBC (Bld) [Ratio] 0 % 0-5 [facility] Work Phone: MCHC Auto (RBC) [Mass/Vol]on 01-07-2022 MCHC (RBC) [Mass/Vol] 31.1 g/dL 32-36 [facility] Work Phone: No Panel Informationon 01-07 Estimated GFR (MDRD) Amer 112 mL/min >60 [facility] Work Phone: Comment on above: GFR Calc Estimated GFR (MDRD) Non-Af Amer 92 mL/min >60 [facility] Work Phone: Comment on above: Non- GFR Calc Thyroid Stimulating Hormone (TSH) 2.01 uIU/mL 0.358-3.74 [facility] Work Phone: Platelets bldon 01-07-2022 Platelets (Bld) [#/Vol] 321 10*3/uL 150-450 [facility] Work Phone: Serum or plasma albumin tim urement (mass/volume)on 01-07-2022 Albumin [Mass/Vol] 4.0 g/dL 3.2-5.0 [facility] Work Phone: Serum or plasma albumin/glob ulin mass ratioon 01-07-2022 Albumin/Globulin [Mass ratio] 1.1 {ratio} 0.9-2.4 [facility] Work Phone: [phone] Serum or plasma calcium tim urement (mass/volume)on 01-07-2022 Calcium [Mass/Vol] 8.7 mg/dL 8.5-10.1 [facility] Work Phone: [phone] Serum or plasma cholesterol in HDL measurement (mass/volume)on 01-07-2022 Cholesterol in HDL [Mass/Vol] 54 mg/dL [facility] Work Phone: Comment on above: The drugs N-Acetylcy steine and Metamizole may falsely depress this assay. Reference Range HDL <40 mg/dL Low HDL Cholesterol HDL >or= 60 mg/dL High HDL Cholesterol Serum or plasma cholesterol in VLDL measurement (mass/volume)on 01-07-2022 Cholesterol in VLDL [Mass/Vol] 27 mg/dL 5-40 [facility] Work Phone: Serum or plasma creatinine m easurement (mass/volume)on 01-07-2022 Creatinine [Mass/Vol] 0.71 mg/dL 0.55-1.02 [facility] Work Phone: Comment on above: The validity of the calculated GFR & GFRAA in patients over 70 years has not been determined. Clinical correlation is essential. Serum or plasma low density lipoprotein (LDL) cholesterol measurement (mass/volume)on 01-07-2022 Cholesterol in LDL [Mass/Vol] 133 mg/dL 0-130 [facility] Work Phone: Serum or plasma urea nitroge n measurement (mass/volume)on 01-07-2022 Urea nitrogen [Mass/Vol] 11 mg/dL 7-18 [facility] Work Phone: Thin prep Papanicolaou smear with manual screeningon 01-07-2022 Thin prep Papanicolaou smear with manual screening 24 U/L 15-37 [facility] Work Phone: Thin prep Papanicolaou smear with manual screening 6 5-15 [facility] Work Phone: Vital Signs Date Time Vital Sign Value Performing Clinician Faci lity 07-29-2025 16:09-0400 Body height 160.[address] Jesse Hu MD Work Phone: [facility] 07-29-2025 16:09-0400 Body weight 71.[address] Jesse Hu MD Work Phone: [facility] 06-18-2025 15:22-0400 Body height 160.[address] Jesse Hu MD Work Phone: [facility] 06-18-2025 15:22-0400 Body weight 71.[address] Jesse Hu MD Work Phone: [phone])245-490042 [place] [address] 05-14-2025 15:06-0400 Body height 160.[address] Jesse Hu MD Work Phone: 2(249)525-597842 [place] [address] 05-14-2025 15:06-0400 Body weight 71.[address] Jesse Hu MD Work Phone: 5(952)915-780597 [place] [address] 05-03-2025 13:31-0400 Body height 160.[address] Jesse Hu MD Work Phone: 2(053)808-351197 [place] [address] 05-03-2025 13:31-0400 Body mass index (BMI) [Ratio] 27.5 kg/m2 Dr. Jesse Hu MD Work Phone: 7([phone])[phone] [place] [address] 05-03-2025 13:31-0400 Body weight 70.[address] Jesse Hu MD Work Phone: 7([phone])[phone] [place] [address] 05-03-2025 13:31-0400 Diastolic blood pressure 67 mm[Hg] Dr. Jesse Hu MD Work Phone: 8(360)321-547597 [place] [address] 05-03-2025 13:31-0400 Systolic blood pressure 124 mm[Hg] Dr. Jesse Hu MD Work Phone: 2(196)314-397397 [place] [address] 04-03-2025 16:08-0400 Body height 160.[address] Jesse Hu MD Work Phone: 7(523)722-678297 [place] [address] 04-03-2025 16:08-0400 Body weight 72.[address] Jesse Hu MD Work Phone: 5([phone])230-651597 [place] [address] 03-20-2025 15:33-0400 Body weight 71.[address] Jesse Hu MD Work Phone: 7(632)835-677297 [place] [address] 02-20-2025 14:32-0400 Body mass index (BMI) [Ratio] 28.5 kg/m2 Dr. Jesse Hu MD Work Phone: 7([phone])289-896097 [place] [address] 02-20-2025 14:32-0400 Body weight 73.[address] Jesse Hu MD Work Phone: 6(441)556-460697 [place] [address] 02-20-2025 14:32-0400 Diastolic blood pressure 72 mm[Hg] Dr. Jesse Hu MD Work Phone: [facility] 02-20-2025 14:32-0400 Heart rate 85 /min Dr. Jesse Hu MD Work Phone: [facility] 02-20-2025 14:32-0400 Respiratory rate 18 /min Dr. Jesse Hu MD Work Phone: [facility] 02-20-2025 14:32-0400 SaO2% (BldA) [Mass fraction] 95 % Dr. Jesse Hu MD Work Phone: [facility] 02-20-2025 14:32-0400 Systolic blood pressure 118 mm[Hg] Dr. Jesse Hu MD Work Phone: [facility] 03-05-2024 15:30-0400 Body height 160.[address] Jesse Hu Work Phone: [facility] 03-05-2024 15:30-0400 Body mass index (BMI) [Ratio] 28 kg/m2 Dr. Jesse Hu Work Phone: [facility] 03-05-2024 15:30-0400 Body weight 71.[address] Jesse Hu Work Phone: [facility] 03-05-2024 15:30-0400 Diastolic blood pressure 79 mm[Hg] Dr. Jesse Hu Work Phone: [facility] 03-05-2024 15:30-0400 Systolic blood pressure 111 mm[Hg] Dr. Jesse Hu Work Phone: [facility] 09-17-2022 09:06-0400 Body temperature 97 [degF] Dr. Jesse Hu Work Phone: [facility] Work Phone: 09-17-2022 09:06-0400 Diastolic blood pressure 69 mm[Hg] Dr. Jesse Hu Work Phone: [facility] Work Phone: 09-17-2022 09:06-0400 Heart rate 62 /min Dr. Jesse Hu Work Phone: [facility] Work Phone: 09-17-2022 09:06-0400 Respiratory rate 16 /min Dr. Jesse Hu Work Phone: [facility] Work Phone: 09-17-2022 09:06-0400 SaO2% (BldA) [Mass fraction] 100 % Dr. Jesse Hu Work Phone: [facility] Work Phone: 09-17-2022 09:06-0400 Systolic blood pressure 104 mm[Hg] Dr. Jesse Hu Work Phone: [facility] Work Phone: 09-17-2022 07:45-0400 Body height 160.[address] Jesse Hu Work Phone: [facility] Work Phone: 09-17-2022 07:45-0400 Body mass index (BMI) [Ratio] 27.3 kg/m2 Dr. Jesse Hu Work Phone: [facility] Work Phone: 09-17-2022 07:45-0400 Body weight 70.[address] Jesse Hu Work Phone: [facility] Work Phone: 05-03-2022 13:11-0400 Body height 162.[address] Jesse Hu Work Phone: [facility] Work Phone: 05-03-2022 13:11-0400 Body temperature 97.7 [degF] Dr. Jesse Hu Work Phone: [facility] Work Phone: 05-03-2022 13:11-0400 Diastolic blood pressure 83 mm[Hg] Dr. Jesse Hu Work Phone: [facility] Work Phone: 05-03-2022 13:11-0400 Heart rate 73 /min Dr. Jesse Hu Work Phone: [facility] Work Phone: 05-03-2022 13:11-0400 Respiratory rate 17 /min Dr. Jesse Hu Work Phone: [facility] Work Phone: 05-03-2022 13:11-0400 SaO2% (BldA) [Mass fraction] 98 % Dr. Jesse Hu Work Phone: [facility] Work Phone: 05-03-2022 13:11-0400 Systolic blood pressure 131 mm[Hg] Dr. Jesse Hu Work Phone: [facility] Work Phone: Encounters Encounter Date Encounter Type Care Provider Facility Start: 10-07-2025 ambulatory Jesse Hu Facilit y:[facility] Start: 09-03-2025 End: 09-20-2025 ambulatory Jesse Hu Facility:[facility] Start: 07-29-2025 End: 08-20-[address] Jesse Hu MD -Nutritional Services Work Phone: Start: 07-29-2025 End: 08-20-[address] Jesse Hu MD Work Phone: -Nutritional Services Start: 07-17-2025 End: 07-17-[address] Jesse Hu MD Work Phone: -Laboratory [facility] Start: 07-17-2025 End: 07-17-[address] Jesse Hu MD -Laboratory [facility] Start: 07-17-2025 End: 07-17-2025 ambulatory Jesse Hu Facility:[facility] Start: 06-18-2025 End: 06-20-[address] Jesse Hu MD -Nutritional Services Work Phone: Start: 06-18-2025 End: 06-20-[address] Jesse Hu MD Work Phone: -Nutritional Services Start: 05-14-2025 End: 05-20-[address] Jesse Hu MD -Nutritional Services Work Phone: Start: 05-14-2025 End: 05-20-[address] Jesse Hu MD Work Phone: -Nutritional Services Start: 05-03-2025 End: 05-03-[address] Kaci Lange DO -[facility] Work Phone: Start: 05-03-2025 End: 05-03-[address] Kaci Lange DO [facility] Start: 05-03-2025 End: 05-03-[address] Jesse Hu MD Work Phone: [facility] Work Phone: Start: 04-16-2025 End: 04-16-[address] Jesse Hu MD Work Phone: [facility] Work Phone: Start: 04-16-2025 End: 04-16-[address] Kaci Lange DO -Outpatient Breast Imaging Work Phone: Start: 04-16-2025 End: 04-16-2025 ambulatory Kaci Lange Facility:[facility] Start: 04-03-2025 End: 04-20-[address] Jesse Hu MD -Nutritional Services Work Phone: Start: 04-03-2025 End: 04-20-[address] Jesse Hu MD Work Phone: [facility] Work Phone: Start: 03-20-2025 End: 03-20-2025 ambulatory Jesse Hu Facility:[facility] Start: 03-20-2025 End: 03-20-[address] Jesse Hu MD -Nutritional Services Work Phone: Start: 03-18-2025 ambulatory Jesse Hu Facilit y:[facility] Start: 03-18-2025 Non-patient / Non-visit Dr. Shanda SHORT -[facility] Start: 03-18-2025 End: 03-18-[address] Taiwo Adkins MD -Cardiovascular Services Work Phone: Start: 03-18-2025 End: 03-18-2025 ambulatory Taiwo Adkins Facility:[facility] Start: 02-28-[address] Taiwo perkins MD -Cardiovascular Services Work Phone: Start: 02-28-2025 ambulatory Alhaji SHEPHERD Facility :[facility] Start: 02-28-2025 Non-patient / Non-visit Dr. Taiwo Adkins MD -[facility] Work Phone: Start: 02-20-2025 End: 02-20-[address] Taiwo Adkins MD -[facility] Work Phone: Start: 02-20-2025 End: 02-20-2025 ambulatory Jesse Hu Facility:[facility] Start: 01-15-2025 End: 01-15-[address] Jesse Hu MD Work Phone: [facility] Work Phone: Start: 01-15-2025 End: 01-15-[address] [facility] Start: 01-15-2025 End: 01-15-2025 ambulatory Jesse Hu Facility:[facility] Start: 03-26-2024 End: 03-26-[address] Jesse Hu Work Phone: [facility] Work Phone: Start: 03-26-2024 End: 03-26-[address] Jesse Hu Work Phone: [facility]-Outpatient Breast Imaging Work Phone: Start: 03-05-2024 End: 03-05-[address] Jesse Hu Work Phone: [facility] Work Phone: Start: 02-01-2024 ambulatory Sisi Funes Work Phone: [facility] [place] Start: 10-19-2023 End: 10-19-2023 ambulatory [facility] Work Phone: Start: 10-19-2023 End: 10-19-2023 Patient encounter procedure [facility] Start: 02-16-2023 End: 02-16-2023 ambulatory [facility] Work Phone: Start: 02-16-2023 End: 02-16-2023 Patient encounter procedure [facility]-Laboratory, Specimen Start: 02-07-2023 End: 02-07-2023 ambulatory [facility] Work Phone: Start: 02-07-2023 End: 02-07-2023 Patient encounter procedure [facility]-Outpatient Breast Imaging Start: 10-12-2022 End: 10-12-[address] Jesse Hu Work Phone: [facility] Work Phone: Start: 10-12-2022 End: 10-12-[address] Jesse Hu Work Phone: [facility] Start: 09-17-2022 Non-patient / Non-visit Dr. Roma Hu Work Phone: [facility] Start: 09-17-2022 End: 09-17-2022 Admission to same day surgery center [facility] Start: 09-17-2022 End: 09-17-[address] Jesse Hu Work Phone: [facility] Work Phone: Start: 05-03-2022 End: 05-03-[address] Jesse Hu Work Phone: [facility] Start: 04-30-2022 End: 04-30-[address] [facility] Hu [facility] Start: 01-19-2022 End: 01-19-[address] [facility] Start: 01-07-2022 End: 01-07-[address] [facility] Procedures Date Procedure Procedure Detail Performing Clinician Start: 04-16-2025 Screening mammography Shantel Hu MD Work Phone: Start: 02-20-2025 Evaluation of diagno stic study results Dr. Jesse Hu MD Work Phone: Start: 03-26-2024 Screening mammography Shantel Hu Work Phone: Start: 02-07-2023 Screening mammography Start: 09-17-[address] Jesse easley Work Phone: Start: 06-06-2020 Lipid 1996 panel - S marycarmen or Plasma Sisi Lerma MD Work Phone: Plan of Treatment Date Care Activity Detail Author Start: 06-06-2025 Lipid panel Lipid Screening [facility] Start: 10-12-2024 Screening for malign ant neoplasm of cervix Pap Testing [facility] Start: 11-21-2023 Depression Assessment Depression Ass essment [facility] Start: 07-22-2023 Influenza vaccination Influenza Vacc ine (#1) [facility] Start: 06-06-2023 Diabetes Screening Diabetes Screenin g [facility] Start: 01-01-2023 Screening for malign ant neoplasm of breast Mammogram Screening [facility] Start: 09-17-2022 Patient discharge [facility] Work Phone: Start: 06-21-2021 Screening for malign ant neoplasm of cervix HPV Testing [facility] Start: 04-02-2021 Covid-19 Vaccine (3 - Moderna risk series) Covid-19 Vaccine (3 - Moderna risk series) [facility] Start: 2015 Screening for malign ant neoplasm of colon [facility] Start: 1989 Hepatitis B Vaccine (1 of 3 - 19+ 3-dose series) Hepatitis B Vaccine (1 of 3 - 19+ 3-dose series) [facility] Start: 1989 Shingrix Vaccine (1 of 2) Shingrix Vaccine (1 of 2) [facility] Start: 1989 Urine microalbumin profile DTaP,Tdap,Td Vaccine (1 - Tdap) [facility] Start: 1988 Hepatitis C screening Hepatitis C Sc reening [facility] Start: 1988 HIV screening HIV Screening [facility] Start: 1976 Pneumococcal vaccination Pneumococcal Vaccine (1 of 2 - PCV) [facility] End: 03-02-2025 MG Breast Screening [facility] SCREENING Radiology Routine Encounter for screening mammogram for breast cancer 1 Occurrences starting 02/01/2024 until 03/02/2025 [facility] Work Phone: Comment on above: 1 Occurrences starti ng 02/01/2024 until 03/02/2025 Patient referral [facility] Work Phone: Immunizations Immunization Date Immunization Notes Care Provider Fa cili 09-02-2021 influenza, seasonal, injectable Sisi Lerma MD Work Phone: [facility] 09-02-2021 influenza virus vacc ine, unspecified formulation Sisi Lerma MD Work Phone: [facility] 03-05-2021 COVID-19 original vaccine, full dose, monovalent (MODERNA) Sisi Lerma MD Work Phone: [facility] 02-05-2021 COVID-19 original vaccine, full dose, monovalent (MODERNA) Sisi Lerma MD Work Phone: [facility] Payers Date Payer Category Payer Self-pay [id number] 2024 Unknown [id number] Private Health Insurance [id number] Unknown [id number] Unknown [id number] 2.16.8 [id number] Unknown [id number] 2.16.8 [id number] Unknown [id number] 2.16.8 [id number] Unknown [id number] 2.16.8 [id number] Unknown [id number] 2.16.8 [id number] Unknown [id number] 2.16.8 [id number] Unknown [id number] 2.16.8 [id number] Unknown [id number] 2.16.8 [id number] Unknown [id number] 2.16.8 [id number] Unknown [id number] 2.16.8 [id number] Unknown [id number] 2.16.8 [id number] Unknown [id number] 2.16.8 [id number] Unknown [id number] 2.16.8 [id number] Unknown [id number] 2.16.8 [id number] Unknown [id number] 2.16.8 [id number] Unknown [id number] 2.16.8 [id number] Social History Date Type Detail Facility Start: 05-03-2022 End: 03-05-2024 Tobacco smoking status [facility] Unknown if ever smoked [facility] Start: 10-14-2020 Non-smoker [facility] Start: 1970 Sex Assigned At Female [facility] Start: 11-25-2017 End: 05-03-2025 Tobacco smoking status CTIS Ex-smoker [facility] End: 06-05-2014 History of tobacco use Current smoker [facility] End: 06-05-2014 History of tobacco use Cigarette Smoker [facility] Start: 11-25-2017 Tobacco use and exposure Smoke less tobacco non-user [facility] Start: 08-19-2021 Alcohol intake Current drinke r of alcohol (finding) [facility] Start: 05-30-2020 End: 10-27-2020 [facility] Start: 05-30-2020 End: 10-27-2020 Social connection and isolation panel [facility] Do you belong to any clubs or organizations such as latter day groups, unions, fraternal or athletic groups, or school groups? No [facility] Attends Club or Organization Meetings Not on file [facility] Are you now , , , , never or living with a partner? [facility] How often to you hav e a drink containing alcohol? 2-4 times a month [facility] How many standard dr inks containing alcohol do you have on a typical day? 1 or 2 [facility] How often do you hav e 6 or more drinks on 1 occasion? Never [facility] Do you feel stress - tense, restless, nervous, or anxious, or unable to sleep at night because your mind is troubled all the time - these days [OSQ] To some extent [facility] (I/We) worried wheth er (my/our) food would run out before (I/we) got money to buy more. Never true [facility] Start: 05-30-2020 Education 17 [facility] Start: 01-01-2010 Tobacco Comment occas [facility] Start: 08-29-2008 Alcohol Comment [facility] Start: 1970 Sex Assigned At Not on file [facility] Start: 01-29-2025 Sex Female (finding) [facility] Goals Date Patient Goal Desired Activity /State Mental Status Date Assessment Result Facility 09-17-2022 Cognitive function Voice/Name [facility] Work Phone: Clinical Notes 01-19-2022 to 05-03-2025 Note Date & Type Note Facility 05-03-2025 Evaluation note Diagnosis Onset Date Resolution Encounter for routine gynecological examination noneactive May 03, 2025 1:27pm [facility] Work Phone: 1(654) 224-733006-13-2025 Progress [facility] [address], [address] [place] [address] OFFICE VISIT Date of Service: 05/03/25 MR#: [id number] Acct: [id number] Name: VIVIANE CARTER Rep #: [id number] : 1970 Provider: Dr. 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: No Is patient in pain?: No Allergies latex Allergy (Verified 05/03/25 13:32) Rash Medications ?Medication ?Instructions ?Recorded ?Confirmed ?Type biotin 1 mg capsule 1 mg PO DAILY 02/23/1905/03 History rosuvastatin 40 mg tablet (Crestor) 40 mg PO DAILY 05/03/25 History ashwagandha extract 500 mg capsule mg .Route 03/05/24 05/03/25 History lactobacillus combination no.9 4 4,000 mmu cells PO QD AY 02/06/25 05/03/25 History billion cell capsule (Adult 50 Plus Probiotic) prednisolone acetate 1 % eye 1 drp ophthalmic (eye) BI D 02/06/25 05/03/25 History drops,suspension schisandra extract powder PO .weekly 02/06/25 05/03/25 History turmeric 400 mg capsule mg PO DAILY 02/06/25 5 History calcium 600 mg (as cap PO DAILY 02/20/25 History carbonate)-vitamin D3 12.5 mcg (500 unit) capsule magnesium 200 mg tablet 400 mg PO DAILY 02/20/25 History pantoprazole 40 mg tablet,delayed 40 mg PO QAM 5 05/03/25 History release estradiol 0.01% (0.1 mg/gram) 1 g vaginal 2XW #42.5 gr ams 05/03/25 05/03/25 Rx vaginal cream topiramate 25 mg tablet (Topamax) 25 mg PO QDAY #30 ta bs 05/03/25 05/03/25 Rx Post menopausal: No Patient : No : No PFSH Medical History Recurrent iritis of left eye Endometriosis Wears contact lenses Alcohol use Hx of psoriatic arthritis Arthritis Low iron High cholesterol History of IBS Gastric reflux Former smoker Cardiology follow-up encounter History of stress test History of irregular heartbeat Hx LEEP (loop electrosurgical excision procedure), cervix, Hemorrhoids GERD (gastroesophageal reflux disease) delivery delivered Surgical History S/P LEEP History of root canal procedure History of colonoscopy Hx of endoscopy History of D&C History of bunionectomy Family History Mother No problems noted. Father Myocardial infarction Aunt Brain cancer Lung cancer Grandmother Mouth cancer Social History (Updated 05/03/25 @ 13:39 by Alicia Abdi) Smoking Status: Former smoker alcohol intake: current details: social substance use type: does not use caffeine: Yes what type of physical activity do you participate in: walking, aerobics and weight training frequency: 3-4 times per week seatbelt use: always do you feel safe at home: Yes additional social history: Suraj History 1 Elective abortions Hx Para 1 Spontaneous abortions Hx # Term Pregnancies Ectopic pregnancies Hx # Pregnancies Multiple births # of living children HPI Encounter for routine gynecological examination Details: VIVIANE CARTER is a 53 year old who presents for annual exam. She is interested in weight management. Last PAP: 2021 History of abnormal PAP: yes, over 10 years ago had leep, all normal paps sincethen Last mammogram: 2022 History of abnormal mammogram: no Colon cancer screening: Other preventative health care screenings: followed by pcp thinks is in menopause- no menses x 13 months. had a D&C with Sonia Solis that was normal in 2021 Female Reproductive History Questions: metorrhagia: No, sexually active: Yes, dyspareunia: No and PCB: No Menopausal Symptoms: Yes hot flashes, Yes night sweats, Yes weight change, No mood changes, No difficulty concentrating, No sleep problems and No change in libido Menopausal Treatment: Yes OTC treatments ROS Const Constitutional: Reports as per HPI and night sweats; Denies fatigue, increased appetite, poor appetite, weight gain or weight loss Cardio Card: Denies chest pain Resp Resp: Denies cough or dyspnea GI GI: Reports as per HPI; Denies abdominal pain, bloating, constipation, nausea or vomiting : Reports as per HPI, hot flashes and other; Denies difficulty voiding, dysuria, hematuria, nipple discharge, pelvic pain, prolapse symptoms, urinary frequency, urinary incontinence, urinary urgency, vaginal discharge, vaginal dryness, vaginal odor or vaginal pruritus Skin Skin/Breast: Denies changing lesions, breast mass, breast pain, breast skin changes or nipple discharge Psych Psych: Denies anxiety, change in libido, depression or difficulty concentrating Exam Const General: cooperative, healthy appearing, comfortable, no acute distress, well developed and well groomed HENMT Head: normal to inspection and normocephalic Ears: hearing grossly normal bilaterally and external ears normal Nose: external nose normal Face and sinus: normal facial exam Neck Neck: normal visual inspection, full ROM and no lymphadenopathy Thyroid: thyroid normal Chest Chest palpation & inspection: normal inspection of the chest Breast inspection: normal inspection of the breasts and normal inspection of theaxillae Breast palpation: normal palpation of the breasts, normal palpation of the axillae and no axillary lymphadenopathy Resp Effort & Inspection: normal respiratory effort GI Inspection: normal to inspection and non-distended Palpation: soft, no hepatosplenomegaly and no guarding General: bladder normal to palpation External Female Exam: normal external appearance, normal appearance of the urethra and no lesions Urethra: normal appearance of the urethra and normal palpation Speculum Exam - Vagina: normal appearance of the vagina and normal vaginal discharge Speculum Exam - Cervix: normal appearance of the cervix, no cervical discharge, no lesions and nontender Bimanual Exam- Vagina & Uterus: normal bimanual exam, uterine size normal, bladder normal to palpation, No tender, uterine mobility normal, consistency normal, non-tender and no cervical motion tenderness Bimanual Exam- Adnexa, other: normal adnexae, no masses and non-tender Skin General: no rashes or lesions noted Neuro General: patient alert, moves all extremities and no focal motor deficits Extrem General: normal to inspection and no pedal edema Psych Appearance: grossly normal Mental Status: mental status grossly normal Affect: normal affect Speech and Movement: speech and movement normal Attitude: cooperative Coding Level of Care Code Off vis,est,prev 40-64yrs Diagnoses Encounter for routine gynecological examination Z01.419 Assessment and Plan Assessment and Plan (1) Encounter for routine gynecological examination: Plan: Cervical cancer screening: pap up to date Breast cancer screening: mammogram up to date plan to start topamax 25 mg daily and estradiol cream. rto in 3 months to discuss more about weightand HRT> if doing well on the 25 mg of topamax, will increase to 50 other health maintenance examination reviewed and orders placed if needed. Encouraged maintenance of a healthy weight and active lifestyle and handout given. Annual exam handout including recommendations for good health guidelines, Calcium/vitamin D recommendations, and basic screening information given. Problem list up to date, see problem list details for any additional plan information. Follow up in one year for annual health maintenance exam or sooner if needed. Medications: New topiramate (Topamax) 25 mg PO QDAY 30 tabs 0RF estradiol 0.01%(0.1mg/gram) start with 1 gram daily for 2 weeks then 2 times a week for maintenance 1 g vaginal 2XW 42.5 grams 5RF 05/03/25 1406 e Yash DO> Date _ Kaci Lange DO Cosigner Signature: Date (if applicable) CC: ~ [facility]06-13-2025 Progress note Author Kaci Berrios [facility] Services Note Date/Time May 03, 2025 2:06 pm [facility] [address], [address] [place] [address] OFFICE VISIT Date of Service: 05/03/25 MR#: [id number] Acct: [id number] Name: VIVIANE CARTER Rep #: [id number] : 1970 Provider: Dr. 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: No Is patient in pain?: No Allergies latex Allergy (Verified 05/03/25 13:32) Rash Medications ?Medication ?Instructions ?Recorded ?Confirmed ?Type biotin 1 mg capsule 1 mg PO DAILY 02/23/1905/03 History rosuvastatin 40 mg tablet (Crestor) 40 mg PO DAILY 05/03/25 History ashwagandha extract 500 mg capsule mg .Route 03/05/24 05/03/25 History lactobacillus combination no.9 4 4,000 mmu cells PO QD AY 02/06/25 05/03/25 History billion cell capsule (Adult 50 Plus Probiotic) prednisolone acetate 1 % eye 1 drp ophthalmic (eye) BI D 02/06/25 05/03/25 History drops,suspension schisandra extract powder PO .weekly 02/06/25 05/03/25 History turmeric 400 mg capsule mg PO DAILY 02/06/25 5 History calcium 600 mg (as cap PO DAILY 02/20/25 History carbonate)-vitamin D3 12.5 mcg (500 unit) capsule magnesium 200 mg tablet 400 mg PO DAILY 02/20/25 History pantoprazole 40 mg tablet,delayed 40 mg PO QAM 5 05/03/25 History release estradiol 0.01% (0.1 mg/gram) 1 g vaginal 2XW #42.5 gr ams 05/03/25 05/03/25 Rx vaginal cream topiramate 25 mg tablet (Topamax) 25 mg PO QDAY #30 ta bs 05/03/25 05/03/25 Rx Post menopausal: No Patient : No : No PFSH Medical History Recurrent iritis of left eye Endometriosis Wears contact lenses Alcohol use Hx of psoriatic arthritis Arthritis Low iron High cholesterol History of IBS Gastric reflux Former smoker Cardiology follow-up encounter History of stress test History of irregular heartbeat Hx LEEP (loop electrosurgical excision procedure), cervix, Hemorrhoids GERD (gastroesophageal reflux disease) delivery delivered Surgical History S/P LEEP History of root canal procedure History of colonoscopy Hx of endoscopy History of D&C History of bunionectomy Family History Mother No problems noted. Father Myocardial infarction Aunt Brain cancer Lung cancer Grandmother Mouth cancer Social History (Updated 05/03/25 @ 13:39 by Alicia Abdi) Smoking Status: Former smoker alcohol intake: current details: social substance use type: does not use caffeine: Yes what type of physical activity do you participate in: walking, aerobics and weight training frequency: 3-4 times per week seatbelt use: always do you feel safe at home: Yes additional social history: Suraj History 1 Elective abortions Hx Para 1 Spontaneous abortions Hx # Term Pregnancies Ectopic pregnancies Hx # Pregnancies Multiple births # of living children HPI Encounter for routine gynecological examination Details: VIVIANE CARTER is a 53 year old who presents for annual exam. She is interested in weight management. Last PAP: 2021 History of abnormal PAP: yes, over 10 years ago had leep, all normal paps sincethen Last mammogram: 2022 History of abnormal mammogram: no Colon cancer screening: Other preventative health care screenings: followed by pcp thinks is in menopause- no menses x 13 months. had a D&C with Sonia Solis that was normal in 2021 Female Reproductive History Questions: metorrhagia: No, sexually active: Yes, dyspareunia: No and PCB: No Menopausal Symptoms: Yes hot flashes, Yes night sweats, Yes weight change, No mood changes, No difficulty concentrating, No sleep problems and No change in libido Menopausal Treatment: Yes OTC treatments ROS Const Constitutional: Reports as per HPI and night sweats; Denies fatigue, increased appetite, poor appetite, weight gain or weight loss Cardio Card: Denies chest pain Resp Resp: Denies cough or dyspnea GI GI: Reports as per HPI; Denies abdominal pain, bloating, constipation, nausea or vomiting : Reports as per HPI, hot flashes and other; Denies difficulty voiding, dysuria, hematuria, nipple discharge, pelvic pain, prolapse symptoms, urinary frequency, urinary incontinence, urinary urgency, vaginal discharge, vaginal dryness, vaginal odor or vaginal pruritus Skin Skin/Breast: Denies changing lesions, breast mass, breast pain, breast skin changes or nipple discharge Psych Psych: Denies anxiety, change in libido, depression or difficulty concentrating Exam Const General: cooperative, healthy appearing, comfortable, no acute distress, well developed and well groomed [facility] Head: normal to inspection and normocephalic Ears: hearing grossly normal bilaterally and external ears normal Nose: external nose normal Face and sinus: normal facial exam Neck Neck: normal visual inspection, full ROM and no lymphadenopathy Thyroid: thyroid normal Chest Chest palpation & inspection: normal inspection of the chest Breast inspection: normal inspection of the breasts and normal inspection of theaxillae Breast palpation: normal palpation of the breasts, normal palpation of the axillae and no axillary lymphadenopathy Resp Effort & Inspection: normal respiratory effort GI Inspection: normal to inspection and non-distended Palpation: soft, no hepatosplenomegaly and no guarding General: bladder normal to palpation External Female Exam: normal external appearance, normal appearance of the urethra and no lesions Urethra: normal appearance of the urethra and normal palpation Speculum Exam - Vagina: normal appearance of the vagina and normal vaginal discharge Speculum Exam - Cervix: normal appearance of the cervix, no cervical discharge, no lesions and nontender Bimanual Exam- Vagina & Uterus: normal bimanual exam, uterine size normal, bladder normal to palpation, No tender, uterine mobility normal, consistency normal, non-tender and no cervical motion tenderness Bimanual Exam- Adnexa, other: normal adnexae, no masses and non-tender Skin General: no rashes or lesions noted Neuro General: patient alert, moves all extremities and no focal motor deficits Extrem General: normal to inspection and no pedal edema Psych Appearance: grossly normal Mental Status: mental status grossly normal Affect: normal affect Speech and Movement: speech and movement normal Attitude: cooperative Coding Level of Care Code Off vis,est,prev 40-64yrs Diagnoses Encounter for routine gynecological examination Z01.419 Assessment and Plan Assessment and Plan (1) Encounter for routine gynecological examination: Plan: Cervical cancer screening: pap up to date Breast cancer screening: mammogram up to date plan to start topamax 25 mg daily and estradiol cream. rto in 3 months to discuss more about weight and HRT> if doing well on the 25 mg of topamax, will increase to 50 other health maintenance examination reviewed and orders placed if needed. Encouraged maintenance of a healthy weight and active lifestyle and handout given. Annual exam handout including recommendations for good health guidelines, Calcium/vitamin D recommendations, and basic screening information given. Problem list up to date, see problem list details for any additional plan information. Follow up in one year for annual health maintenance exam or sooner if needed. Medications: New topiramate (Topamax) 25 mg PO QDAY 30 tabs 0RF estradiol 0.01%(0.1mg/gram) start with 1 gram daily for 2 weeks then 2 times a week for maintenance 1 g vaginal 2XW 42.5 grams 5RF 05/03/25 1406 <Electronically signed by Kaci Rojas DO> Date _ Kaci Syignjolanta Signature: Date (if applicable) CC: ~ [facility] Work Phone: 1(395) 464-335904-02-2025 Evaluation note* Diagnosis Onset Date Resolution Status Admit Date Heart palpitations acute February 20, 2025 2:27pm High cholesterol acute February 2:27pm [facility] Work Phone: 1(976) 494-221104-02-2025 Evaluation note* Diagnosis Onset Date Resolution Status Admit Date Heart palpitations acute February 20, 2025 2:27pm High cholesterol acute February 2:27pm Encounter for routine gynecological examination noneactive April 212024 1:27pm [facility] Work Phone: 1(111) 837-151203-13-2024 NotePatient Outreach (INTMMN) VIVIANE CARTER ([id number]) 1970 F Date Time Provider Department 02/01/24 SISI LERMA INTMOISE During your visit today, we recorded the following information about you: Allergies As of Date: 02/01/2024 (No Known Allergies) Date Reviewed: 08/19/2021 Reviewed by: Yadi Vick APRN.HAZARDOUS WASTE MANAGEMENT SPECIALIST - Fully Assessed Visit Diagnosis:Encounter for screening mammogram for breast cancer [Z12.31] Order(s):[facility] SCREENING [[id number]] Order #: [id number] FUTURE Prescriptions as of 02/06/2024 - Dexlansoprazole (DEXILANT) 60 mg CpDM Take 60 mg by mouth once daily. - prednisolone sodium phosphate (PREDNISOL OPHTHALMIC) Use in eyes. - cyclobenzaprine (FLEXERIL) 10 mg tablet Take 1 tablet by mouth three times daily as needed for muscle spasm for up to 30 doses. - simvastatin (ZOCOR) 20 mg tablet Take 1 tablet by mouth daily at bedtime. - Clobetasol Propionate (OLUX) 0.05 % topical foam Apply to affected area two times a week. - OTEZLA 30 mg tablet - CYANOCOBALAMIN, VITAMIN B-12, (VITAMIN B-12 ORAL) Take by mouth. - acidophilus-pectin, citrus (ACIDOPHILUS PROBIOTIC) 100 million cell-10 mg cap Take 1 capsule by mouth. - Calcium and Magnesium Carbonates per tablet Take 1 tablet by mouth once daily. Problem List As Of Date 02/01/2024 Noted Resolved Irritable bowel syndrome [K58.9] Other specified disorder of gallbladder [K82.8] 10/23/2010 Nausea [R11.0] 10/23/2010 Abdominal pain, unspecified site [R10.9] 11/04/2010 Nausea alone [R11.0] 11/04/2010 Unspecified esophagitis [K20.90] 11/04/2010 Hyperlipidemia [E78.5] 07/27/2013 GERD (gastroesophageal reflux disease) [K21.9] 07/27/2013 Abdominal pain, epigastric [R10.13] 05/02/2015 Encounter Status:Closed by MANJINDER SKELTON on 02/06/24[facility] 02-23-2023 NotePatient Outreach (INTMMN) VIVIANE CARTER ([id number]) 1970 F Date Time Provider Department 02/23/23 SISI LERMA INTMOISE During your visit today, we recorded the following information about you: Allergies As of Date: 02/23/2023 (No Known Allergies) Date Reviewed: 08/19/2021 Reviewed by: Yadi Vick APRN.HAZARDOUS WASTE MANAGEMENT SPECIALIST - Fully Assessed Visit Diagnosis:Encounter for screening mammogram for breast cancer [Z12.31] Order(s):[facility] SCREENING [[id number]] Order #: [id number] FUTURE Prescriptions as of 02/28/2023 - Dexlansoprazole (DEXILANT) 60 mg CpDM Take 60 mg by mouth once daily. - prednisolone sodium phosphate (PREDNISOL OPHTHALMIC) Use in eyes. - cyclobenzaprine (FLEXERIL) 10 mg tablet Take 1 tablet by mouth three times daily as needed for muscle spasm for up to 30 doses. - simvastatin (ZOCOR) 20 mg tablet Take 1 tablet by mouth daily at bedtime. - Clobetasol Propionate (OLUX) 0.05 % topical foam Apply to affected area two times a week. - OTEZLA 30 mg tablet - CYANOCOBALAMIN, VITAMIN B-12, (VITAMIN B-12 ORAL) Take by mouth. - acidophilus-pectin, citrus (ACIDOPHILUS PROBIOTIC) 100 million cell-10 mg cap Take 1 capsule by mouth. - Calcium and Magnesium Carbonates per tablet Take 1 tablet by mouth once daily. Problem List As Of Date 02/23/2023 Noted Resolved Irritable bowel syndrome [K58.9] Other specified disorder of gallbladder [K82.8] 10/23/2010 Nausea [R11.0] 10/23/2010 Abdominal pain, unspecified site [R10.9] 11/04/2010 Nausea alone [R11.0] 11/04/2010 Unspecified esophagitis [K20.90] 11/04/2010 Hyperlipidemia [E78.5] 07/27/2013 GERD (gastroesophageal reflux disease) [K21.9] 07/27/2013 Abdominal pain, epigastric [R10.13] 05/02/2015 Encounter Status:Closed by COSTA PRODUSER on 02/28/23[facility] 01-19-2022 NotePap Smear Specimen AdequacyMarch 2021 5:00pmComment Satisfactory for evaluation. Endocervical and/or squamous metaplasticcells (endocervical component)are present.Scratch Hard INTERFACED A#[id number] [facility] Center Work Phone: Comment on above:Satisfactory for evaluation. Endocervical and/or squamous metaplasticcells (endocervical component)are present.Evaluation note* Diagnosis Onset Date Resolution Status Screening for intestinal cancer acute [facility] Work Phone: Evaluation noteNo assessment information available [facility] Work Phone: Evaluation note* Diagnosis Encounter for screening mammogram for breast cancer [facility] Diagnosis Onset Date Resolution Status Encounter for routine gynecological examination noneactive [facility] Work Phone: Reason for referral (narrative)* Diagnostic Procedure Only (Routine) - Pending Review Specialty Diagnoses / Procedures Referred By Zo t Referred To Contact [facility] Diagnoses Encounter for screening mammogram for breast cancer Procedures HARI SCREENING SCREENING MAMMOGRAPHY BI 2-VIEW BREAST INC Sisi Portillo MD [address] [place] [address] [facility] [address] [place] [address] Referral ID Status Reason Start Date Expiration Date Visits Requested Visits Authorized [id number] Pending Review Auto-Generat ed Referral 02/01/2024 03/02/2025 1 0 [facility] for referral (narrative)No reason for referral information availableSal[facility] Work Phone: Chief Complaint and Reason for Visit Chief Complaint E ORDER COLONOSCOPY; HISTORY W/GERD Reason for Visit Screening for intest inal cancer Chief Complaint SCREENING Chief Complaint Annual (PAPER SEALER) SCREENING Reason for Visit Encounter for routin e gynecological examination Chief Complaint Admit Date EOJanuary 15, 2025 7:56am Chief Complaint Admit Date EOER January 15, 2025 7:56am Palps (Schinner) February 20, 2025 2:27 pm 30 DAY MONITOR February 28, 2025 9:0 0am PALPS February 28, 2025 12: 09pm PALP March 18, 2025 7:5 0am DIET COUNS & SURV, OVERWEIGHT February 3:30pm DIET COUNS & SURV, OVERWEIGHT April 03, 2025 3:54pm screening April 16, 2025 3:25p m Reason for Visit Admit Date Heart palpitations February 20, 2025 2:27 pm High cholesterol February 20, 2025 2:27 pm Chief Complaint Admit Date EORDER January 15, 2025 7:56am Palps (Schinner) February 20, 2025 2:27 pm 30 DAY MONITOR February 28, 2025 9:0 0am PALPS February 28, 2025 12: 09pm PALP March 18, 2025 7:5 0am DIET COUNS & SURV, OVERWEIGHT February 3:30pm DIET COUNS & SURV, OVERWEIGHT April 03, 2025 3:54pm screening April 16, 2025 3:25p m Annual (PAPER SEALER) May 03, 2025 1:27 pm Reason for Visit Admit Date Heart palpitations February 20, 2025 2:27 pm High cholesterol February 20, 2025 2:27 pm Encounter for routine gynecological exam ination May 03, 2025 1:27pm Chief Complaint Admit Date Palps (Schinner) February 20, 2025 2:27 pm 30 DAY MONITOR February 28, 2025 9:0 0am PALPS February 28, 2025 12: 09pm PALP March 18, 2025 7:5 0am DIET COUNS & SURV, OVERWEIGHT February 3:30pm DIET COUNS & SURV, OVERWEIGHT April 03, 2025 3:54pm screening April 16, 2025 3:25p m Annual (PAPER SEALER) May 03, 2025 1:27 pm DIET COUNS & SURV, OVERWEIGHT May 14, 2025 3:05pm Chief Complaint Admit Date 30 DAY MONITOR February 28, 2025 9:0 0am PALPS February 28, 2025 12: 09pm PALP March 18, 2025 7:5 0am DIET COUNS & SURV, OVERWEIGHT February 3:30pm DIET COUNS & SURV, OVERWEIGHT April 03, 2025 3:54pm screening April 16, 2025 3:25p m Annual (PAPER SEALER) May 03, 2025 1:27 pm DIET COUNS & SURV, OVERWEIGHT May 14, 2025 3:05pm DIET COUNS & SURV, OVERWEIGHT June 18, 2025 3:26pm Reason for Visit Admit Date Encounter for routine gynecological exam ination May 03, 2025 1:27pm Chief Complaint Admit Date DIET COUNS & SURV, OVERWEIGHT April 03, 2025 3:54pm screening April 16, 2025 3:25p m Annual (PAPER SEALER) May 03, 2025 1:27 pm DIET COUNS & SURV, OVERWEIGHT May 14, 2025 3:05pm DIET COUNS & SURV, OVERWEIGHT June 18, 2025 3:26pm Chief Complaint Admit Date Annual (PAPER SEALER) May 03, 2025 1:27 pm DIET COUNS & SURV, OVERWEIGHT May 14, 2025 3:05pm DIET COUNS & SURV, OVERWEIGHT June 18, 2025 3:26pm DIET COUNS & SURV, OVERWEIGHT July 29, 2025 4:03pm Family History No Family History Records Found Relationship Condition Age at Onset Recorded Date/T elise mother Diabetes mellitus Unknown Osteoporosis Unknown father Cardiac disease Unknown High blood cholesterol Unknown Relationship Condition Age at Onset Recorded Date/T elise father Myocardial infarction Unknown aunt Malignant neoplasm of brain Unknown Malignant neoplasm of lung Unknown grandmother Malignant neoplasm of oral cavity Unknown Advance Directives No Advanced Directives Records Found Advance Directive Response Recorded Date/ Time Living Will No October 14, 2 020 1:58pm Power of Flavor Maker No October 14, 2020 1:58pm Advance Directive Response Recorded Date/ Time Living Will No September 13 3:05pm Power of Flavor Maker No September 13, 2022 3:05pm Advance Directive Response Recorded Date/ Time Living Will No September 13 2:05pm Power of Flavor Maker No September 13, 2022 2:05pm Advance Directive Response Recorded Date/ Time Living Will No October 20, 2 023 8:32am Power of Flavor Maker No October 20, 2023 8:32am Advance Directive Response Recorded Date/ Time Living Will No October 20, 2 023 9:32am Power of Flavor Maker No October 20, 2023 9:32am Advance Directive Response Recorded Date/ Time Living Will No October 20, 2 023 9:32am Do you have a [facility] Power of Flavor Maker? No October 20, 2023 9:32am Summary Purpose Additional Source Comments Goals (unrecognized section and content) Goals may be documented in a n alternate sectionGoals may be documented in an alternate sectionGoals may be documented in an alternate sectionGoals may be documented in an alternate sectionGoals may be documented in an alternate sectionGoals may be documented in an alternate sectionGoals may be documented in an alternate sectionGoals may be documented in an alternate sectionGoals may be documented in an alternate sectionGoals may be documented in an alternate sectionGoals may be documented in an alternate sectionGoals may be documented in an alternate sectionGoals may be documented in an alternate section Care Teams (unrecognized sec tion and content) Team Status: Active Member Role Status Dates Dr. Sisi Lerma MD Family Provider Active Dr. Jesse Hu MD Primary Care Provider Active Team Status: Inactive Member Role Status Dates Dr. Jesse Hu MD Primary Care Provider Active Dr. Sonia Solis DO Attending Provider, Referrin g Provider Active Team Status: Inactive Member Role Status Dates Dr. Jesse Hu MD Primary Care Provider Active Dr. Sonia Solis DO Attending Provider Active Team Status: Inactive Member Role Status Dates Dr. Jesse Hu MD Primary Care Provider, Attend ing Provider Active Clinical Instructor Relationship Specialty Start Date End Date Sisi Lerma MD [address] [place] [address] PCP - General Internal Medicine 07/30/13 Team Status: Inactive Member Role Status Dates Dr. Jesse Hu MD Primary Care Provider, Referr ing Provider Active Dr. Kaci Lange DO Attending Provider Activ e Team Status: Inactive Member Role Status Dates Dr. Jesse Hu MD Primary Care Provider Active Dr. Kaci Lange DO Attending Provider, Refe rring Provider Active Team Status: Inactive Member Role Status Dates Dr. Jesse Hu MD Primary Care Provider Active Start: January 15, 2025 End: January 15, 2025 Dr. Jesse Hu MD Attending Provider Active Start: January 15, 2025 End: January 15, 2025 Dr. Jesse Hu MD Referring Provider Active Start: January 15, 2025 End: January 15, 2025 Team Status: Active Member Role Status Dates Dr. Jesse Hu MD Primary Care Provider Active Team Status: Inactive Member Role Status Dates Dr. Jesse Hu MD Primary Care Provider Active Start: February 20, 2025 End: February 20, 2025 Dr. Jesse Hu MD Referring Provider Active Start: February 20, 2025 End: February 20, 2025 Dr. Taiwo Adkins MD Attending Provider Active Start: February 20, 2025 End: February 20, 2025 Team Status: Active Member Role Status Dates Dr. Jesse Hu MD Primary Care Provider Active Start: February 28, 2025 Dr. Taiwo Adkins MD Attending Provider Active Start: February 28, 2025 Dr. Taiwo Adkins MD Referring Provider Active Start: February 28, 2025 Team Status: Active Member Role Status Dates Dr. Jesse Hu MD Primary Care Provider Active Start: February 28, 2025 Dr. Taiwo Adkins MD Attending Provider Active Start: February 28, 2025 Alhaji SHEPHERD PA Referring Provider Active Sta rt: February 28, 2025 Team Status: Inactive Member Role Status Dates Dr. Jesse Hu MD Primary Care Provider Active Start: March 18, 2025 End: March 18, 2025 Dr. Taiwo Adkins MD Attending Provider Active Start: March 18, 2025 End: March 18, 2025 Dr. Taiwo Adkins MD Referring Provider Active Start: March 18, 2025 End: March 18, 2025 Team Status: Active Member Role Status Dates Dr. Jesse Hu MD Primary Care Provider Active Start: March 18, 2025 Dr. Vahid Minor MD Attending Provider Active S tart: March 18, 2025 Team Status: Inactive Member Role Status Dates Dr. Jesse Hu MD Primary Care Provider Active Start: March 20, 2025 End: March 20, 2025 Dr. Jesse Hu MD Attending Provider Active Start: March 20, 2025 End: March 20, 2025 Dr. Jesse Hu MD Referring Provider Active Start: March 20, 2025 End: March 20, 2025 Team Status: Inactive Member Role Status Dates Dr. Jesse Hu MD Primary Care Provider Active Start: April 03, 2025 End: April 20, 2025 Dr. Jesse Hu MD Attending Provider Active Start: April 03, 2025 End: April 20, 2025 Dr. Jesse Hu MD Referring Provider Active Start: April 03, 2025 End: April 20, 2025 Team Status: Active Member Role Status Dates Dr. Jesse Hu MD Primary Care Provider Active Start: April 16, 2025 Dr. Kaci Lange DO Attending Provider Activ e Start: April 16, 2025 Dr. Kaci Lange DO Referring Provider Activ e Start: April 16, 2025 Team Status: Inactive Member Role Status Dates Dr. Jesse Hu MD Primary Care Provider Active Start: April 16, 2025 End: April 16, 2025 Dr. Kaci Lange DO Attending Provider Activ e Start: April 16, 2025 End: April 16, 2025 Dr. Kaci Lange DO Referring Provider Activ e Start: April 16, 2025 End: April 16, 2025 Team Status: Inactive Member Role Status Dates Dr. Jesse Hu MD Primary Care Provider Active Start: May 03, 2025 End: May 03, 2025 Dr. Jesse Hu MD Referring Provider Active Start: May 03, 2025 End: May 03, 2025 Dr. Kaci Lange DO Attending Provider Activ e Start: May 03, 2025 End: May 03, 2025 Team Status: Active Member Role/Relationship Status Dates Dr. Jesse Hu MD Primary Care Provider Active Team Status: Inactive Member Role/Relationship Status Dates Dr. Jesse Hu MD Primary Care Provider Active Start: February 20, 2025 End: February 20, 2025 Dr. Jesse Hu MD Referring Provider Active Start: February 20, 2025 End: February 20, 2025 Dr. Taiwo Adkins MD Attending Provider Active Start: February 20, 2025 End: February 20, 2025 Team Status: Active Member Role/Relationship Status Dates Dr. Jesse Hu MD Primary Care Provider Active Start: February 28, 2025 Dr. Taiwo Adkins MD Attending Provider Active Start: February 28, 2025 Dr. Taiwo Adkins MD Referring Provider Active Start: February 28, 2025 Team Status: Active Member Role/Relationship Status Dates Dr. Jesse Hu MD Primary Care Provider Active Start: February 28, 2025 Dr. Taiwo Adkins MD Attending Provider Active Start: February 28, 2025 Alhaji SHEPHERD PA Referring Provider Active Sta rt: February 28, 2025 Team Status: Inactive Member Role/Relationship Status Dates Dr. Jesse Hu MD Primary Care Provider Active Start: March 18, 2025 End: March 18, 2025 Dr. Taiwo Adkins MD Attending Provider Active Start: March 18, 2025 End: March 18, 2025 Dr. Taiwo Adkins MD Referring Provider Active Start: March 18, 2025 End: March 18, 2025 Team Status: Active Member Role/Relationship Status Dates Dr. Jesse Hu MD Primary Care Provider Active Start: March 18, 2025 Dr. Vahid Minor MD Attending Provider Active S tart: March 18, 2025 Team Status: Inactive Member Role/Relationship Status Dates Dr. Jesse Hu MD Primary Care Provider Active Start: March 20, 2025 End: March 20, 2025 Dr. Jesse Hu MD Attending Provider Active Start: March 20, 2025 End: March 20, 2025 Dr. Jesse Hu MD Referring Provider Active Start: March 20, 2025 End: March 20, 2025 Team Status: Inactive Member Role/Relationship Status Dates Dr. Jesse Hu MD Primary Care Provider Active Start: April 03, 2025 End: April 20, 2025 Dr. Jesse Hu MD Attending Provider Active Start: April 03, 2025 End: April 20, 2025 Dr. Jesse Hu MD Referring Provider Active Start: April 03, 2025 End: April 20, 2025 Team Status: Inactive Member Role/Relationship Status Dates Dr. Jesse Hu MD Primary Care Provider Active Start: April 16, 2025 End: April 16, 2025 Dr. Kaci Lange DO Attending Provider Activ e Start: April 16, 2025 End: April 16, 2025 Dr. Kaci Lange DO Referring Provider Activ e Start: April 16, 2025 End: April 16, 2025 Team Status: Inactive Member Role/Relationship Status Dates Dr. Jesse Hu MD Primary Care Provider Active Start: May 03, 2025 End: May 03, 2025 Dr. Jesse Hu MD Referring Provider Active Start: May 03, 2025 End: May 03, 2025 Dr. Kaci Lange DO Attending Provider Activ e Start: May 03, 2025 End: May 03, 2025 Team Status: Inactive Member Role/Relationship Status Dates Dr. Jesse Hu MD Primary Care Provider Active Start: May 14, 2025 End: May 20, 2025 Dr. Jesse Hu MD Attending Provider Active Start: May 14, 2025 End: May 20, 2025 Dr. Jesse Hu MD Referring Provider Active Start: May 14, 2025 End: May 20, 2025 Team Status: Active Member Role/Relationship Status Dates Dr. Jesse Hu MD Primary Care Provider Active Start: February 28, 2025 Dr. Taiwo Adkins MD Attending Provider Active Start: February 28, 2025 Dr. Taiwo Adkins MD Referring Provider Active Start: February 28, 2025 Team Status: Active Member Role/Relationship Status Dates Dr. Jesse Hu MD Primary Care Provider Active Start: February 28, 2025 Dr. Taiwo Adkins MD Attending Provider Active Start: February 28, 2025 JOAO Martin Referring Provider Active Sta rt: February 28, 2025 Team Status: Inactive Member Role/Relationship Status Dates Dr. Jesse Hu MD Primary Care Provider Active Start: March 18, 2025 End: March 18, 2025 Dr. Taiwo Adkins MD Attending Provider Active Start: March 18, 2025 End: March 18, 2025 Dr. Taiwo Adkins MD Referring Provider Active Start: March 18, 2025 End: March 18, 2025 Team Status: Active Member Role/Relationship Status Dates Dr. Jesse Hu MD Primary Care Provider Active Start: March 18, 2025 Dr. Vahid Minor MD Attending Provider Active S tart: March 18, 2025 Team Status: Inactive Member Role/Relationship Status Dates Dr. Jesse Hu MD Primary Care Provider Active Start: March 20, 2025 End: March 20, 2025 Dr. Jesse Hu MD Attending Provider Active Start: March 20, 2025 End: March 20, 2025 Dr. Jesse Hu MD Referring Provider Active Start: March 20, 2025 End: March 20, 2025 Team Status: Inactive Member Role/Relationship Status Dates Dr. Jesse Hu MD Primary Care Provider Active Start: April 03, 2025 End: April 20, 2025 Dr. Jesse Hu MD Attending Provider Active Start: April 03, 2025 End: April 20, 2025 Dr. Jesse Hu MD Referring Provider Active Start: April 03, 2025 End: April 20, 2025 Team Status: Inactive Member Role/Relationship Status Dates Dr. Jesse Hu MD Primary Care Provider Active Start: April 16, 2025 End: April 16, 2025 Dr. Kaci Lange DO Attending Provider Activ e Start: April 16, 2025 End: April 16, 2025 Dr. Kaci Lange DO Referring Provider Activ e Start: April 16, 2025 End: April 16, 2025 Team Status: Inactive Member Role/Relationship Status Dates Dr. Jesse Hu MD Primary Care Provider Active Start: May 03, 2025 End: May 03, 2025 Dr. Jesse Hu MD Referring Provider Active Start: May 03, 2025 End: May 03, 2025 Dr. Kaci Lange DO Attending Provider Activ e Start: May 03, 2025 End: May 03, 2025 Team Status: Inactive Member Role/Relationship Status Dates Dr. Jesse Hu MD Primary Care Provider Active Start: May 14, 2025 End: May 20, 2025 Dr. Jesse Hu MD Attending Provider Active Start: May 14, 2025 End: May 20, 2025 Dr. Jesse Hu MD Referring Provider Active Start: May 14, 2025 End: May 20, 2025 Team Status: Inactive Member Role/Relationship Status Dates Dr. Jesse Hu MD Primary Care Provider Active Start: June 18, 2025 End: June 20, 2025 Dr. Jesse Hu MD Attending Provider Active Start: June 18, 2025 End: June 20, 2025 Dr. Jesse Hu MD Referring Provider Active Start: June 18, 2025 End: June 20, 2025 Team Status: Inactive Member Role/Relationship Status Dates Dr. Jesse Hu MD Primary Care Provider Active Start: April 03, 2025 End: April 20, 2025 Dr. Jesse Hu MD Attending Provider Active Start: April 03, 2025 End: April 20, 2025 Dr. Jesse Hu MD Referring Provider Active Start: April 03, 2025 End: April 20, 2025 Team Status: Inactive Member Role/Relationship Status Dates Dr. Jesse Hu MD Primary Care Provider Active Start: April 16, 2025 End: April 16, 2025 Dr. Kaci Lange DO Attending Provider Activ e Start: April 16, 2025 End: April 16, 2025 Dr. Kaci Lange DO Referring Provider Activ e Start: April 16, 2025 End: April 16, 2025 Team Status: Inactive Member Role/Relationship Status Dates Dr. Jesse Hu MD Primary Care Provider Active Start: May 03, 2025 End: May 03, 2025 Dr. Jesse Hu MD Referring Provider Active Start: May 03, 2025 End: May 03, 2025 Dr. Kaci Lange DO Attending Provider Activ e Start: May 03, 2025 End: May 03, 2025 Team Status: Inactive Member Role/Relationship Status Dates Dr. Jesse Hu MD Primary Care Provider Active Start: May 14, 2025 End: May 20, 2025 Dr. Jesse Hu MD Attending Provider Active Start: May 14, 2025 End: May 20, 2025 Dr. Jesse Hu MD Referring Provider Active Start: May 14, 2025 End: May 20, 2025 Team Status: Inactive Member Role/Relationship Status Dates Dr. Jesse Hu MD Primary Care Provider Active Start: June 18, 2025 End: June 20, 2025 Dr. Jesse Hu MD Attending Provider Active Start: June 18, 2025 End: June 20, 2025 Dr. Jesse Hu MD Referring Provider Active Start: June 18, 2025 End: June 20, 2025 Team Status: Inactive Member Role/Relationship Status Dates Dr. Jesse Hu MD Primary Care Provider Active Start: July 17, 2025 End: July 17, 2025 Dr. Jesse Hu MD Attending Provider Active Start: July 17, 2025 End: July 17, 2025 Dr. Jesse Hu MD Referring Provider Active Start: July 17, 2025 End: July 17, 2025 Team Status: Active Member Role/Relationship Status Dates Dr. Jesse Hu MD Primary care physician Active Team Status: Inactive Member Role/Relationship Status Dates Dr. Jesse Hu MD Primary care physician Active Start: May 03, 2025 End: May 03, 2025 Dr. Jesse Hu MD Referring Provider Active Start: May 03, 2025 End: May 03, 2025 Dr. Kcai Lange DO Attending physician Acti ve Start: May 03, 2025 End: May 03, 2025 Team Status: Inactive Member Role/Relationship Status Dates Dr. Jesse Hu MD Primary care physician Active Start: May 14, 2025 End: May 20, 2025 Dr. Jesse Hu MD Attending physician Active Start: May 14, 2025 End: May 20, 2025 Dr. Jesse Hu MD Referring Provider Active Start: May 14, 2025 End: May 20, 2025 Team Status: Inactive Member Role/Relationship Status Dates Dr. Jesse Hu MD Primary care physician Active Start: June 18, 2025 End: June 20, 2025 Dr. Jesse Hu MD Attending physician Active Start: June 18, 2025 End: June 20, 2025 Dr. Jesse Hu MD Referring Provider Active Start: June 18, 2025 End: June 20, 2025 Team Status: Inactive Member Role/Relationship Status Dates Dr. Jesse Hu MD Primary care physician Active Start: July 17, 2025 End: July 17, 2025 Dr. Jesse Hu MD Attending physician Active Start: July 17, 2025 End: July 17, 2025 Dr. Jesse Hu MD Referring Provider Active Start: July 17, 2025 End: July 17, 2025 Team Status: Inactive Member Role/Relationship Status Dates Dr. Jesse Hu MD Primary care physician Active Start: July 29, 2025 End: August 20, 2025 Dr. Jesse Hu MD Attending physician Active Start: July 29, 2025 End: August 20, 2025 Dr. Jesse Hu MD Referring Provider Active Start: July 29, 2025 End: August 20, 2025 INFORMATION SOURCE (unrecogn ized section and content) DATE CREATED AUTHOR 02/06/2024 [facility] DATE CREATED AUTHOR AUTHOR'S GREYSON ATMARYANA 09/22/2025 [facility] Source Comments (unrecognize d section and content) In the event this informatio n is protected by the Federal Confidentiality of Alcohol and Drug Abuse Patient Records regulations: The Federal rules restrict any use of the information to criminally investigate or prosecute any alcohol or drug abuse patient.[facility] FOR RECORDS PERTAINING TO PATIENTS WHO ARE OR HAVE BEEN ENROLLED IN A CHEMICAL DEPENDENCY/SUBSTANCEABUSE PROGRAM, SOME INFORMATION MAY BE OMITTED. This clinical summary was aggregated from multiple sources. Caution should be exercised in using it in the provision of clinical care. This summary normalizes information from multiple sources, and as a consequence, information in this document may materially change the coding, format and clinical context of patient data. In addition, data may be omitted in some cases. CLINICAL DECISIONS SHOULD BE BASED ON THE PRIMARY CLINICAL RECORDS. [employer] provides no warranty or guarantee of the accuracy or completeness of information in this document.
--- NOTE | 2025-11-11 07:02 | CT_ITS ---
PROCEDURE: LOW DOSE CT LUNG SCREENING 11/11/2025 REASON FOR EXAM: HISTORY OF SMOKING 1 pack per day smoker times 29 years, quit 13 years ago TECHNIQUE: Procedure Code: CTLUNGSCREEN Modality: CT Procedure: LOW DOSE CT LUNG SCREENING Coronal and Sagittal reconstruction series were provided. One or more dose reduction techniques were used (e.g., Automated exposure control, adjustment of the mA and/or kV according to patient size, use of iterative reconstruction technique). REFERENCE LINK: TPACK Lung-RADS RADIATION DOSE SUMMARY: CTDlvol: 3.02 mGy DLP: 85.73 mGycm COMPARISON: None FINDINGS: Lung windows show the lungs to be normally expanded. No suspicious noncalcified mass or nodule. No organized infiltrate or effusion. There is evidence of chronic bronchitis. Limited soft tissue windows show a normal-appearing thyroid gland. No suspicious adenopathy. The thoracic aorta tapers normally. No calcified coronary vessels are noted. Bony structures show degenerative change. Limited cuts through the upper abdomen do not show a suspicious abnormality CT/Low Dose CT Lung Screening IMPRESSION: No suspicious noncalcified mass or nodule, no superimposed pulmonary process Coronary artery calcification (CAC) is is absent Lung-RADS Category: 1 NEGATIVE. RECOMMEND 12-MONTH SCREENING LDCT. Other Significant Findings: Reading Location: [id number]
== END | disposition home or self-care (01) ==
PROVIDERS: PCP Family Medicine; Referring Provider Family Medicine; Visit Provider Family Medicine
DX: Z12.2 Encounter for screening for malignant neoplasm of respiratory organs (principal); Z87.891 Personal history of nicotine dependence
CPT/HCPCS: 71271